=== PATIENT | female | born 1935 | race Caucasian/White ===

== ENCOUNTER 2016-02-25 14:06 | Emergency (ER) | payer MEDICARE, OTHER ==
[2016-02-25] MEDS ORDERED: GASTROGRAFIN SOLUTION 30ML (Q9963) As Ordered ONE (15:49)
[2016-02-25] MEDS ORDERED: ONDANSETRON 4MG/2ML VIAL (J2405) As Ordered ONE (16:17)
[2016-02-25] MEDS ORDERED: MORPHINE 4 MG/ML 1ML SYRINGE As Ordered ONE (16:18)
[2016-02-25 16:26] LABS: MEAN CORPUSCULAR HEMOGLOBIN 33.3 pg (27.0-33.0); MEAN CORPUSCULAR HGB CONC 33.3 g/dl (32.0-36.5); MEAN CORPUSCULAR VOLUME 99.8 fl (80.0-96.0); PLATELET COUNT, AUTOMATED 295 k/mm3 (150-450); RED CELL DISTRIBUTION WIDTH 13.4 % (11.5-14.5)
--- NOTE | 2016-02-25 16:43 | REP ---
Clinical: Chest pain. Technique: PA and lateral. Comparison: 02/05/2016. Findings: Mediastinum and cardiac silhouette are within normal limits and stable. Lung stack demonstrate diffuse chronic interstitial changes and superimposed acute left lower lobe infiltrate cannot be excluded. No effusion. No pneumothorax. Skeletal structures demonstrate osteopenia and degenerative changes. Impression: Diffuse chronic interstitial changes. Cannot exclude superimposed basilar infiltrate/atelectasis. Signed by Roni Oneal MD 02/25/2016 04:33 P
[2016-02-25 16:51] LABS: ALBUMIN 2.9 GM/DL (3.2-5.2); ALBUMIN/GLOBULIN RATIO 0.63 (1.00-1.93); ALKALINE PHOSPHATASE 74 U/L (45-117); ALT/SGPT 50 U/L (12-78); AMYLASE 37 U/L (25-115); ANION GAP 13 MEQ/L (8-16); AST/SGOT 44 U/L (15-37); BILIRUBIN,DIRECT 0.2 MG/DL (0.0-0.2); BILIRUBIN,TOTAL 0.6 MG/DL (0.2-1.0); BLOOD UREA NITROGEN 16 MG/DL (7-18); CALCIUM LEVEL 9.3 MG/DL (8.8-10.2); CARBON DIOXIDE LEVEL 25 MEQ/L (21-32); CHLORIDE LEVEL 97 MEQ/L (98-107); CREATININE FOR GFR 1.06 MG/DL (0.55-1.02); GLUCOSE, FASTING 338 MG/DL (83-110); POTASSIUM SERUM 3.8 MEQ/L (3.5-5.1); SODIUM LEVEL 135 MEQ/L (136-145); TOTAL PROTEIN 7.5 GM/DL (6.4-8.2)
[2016-02-25] MEDS ORDERED: ISOVUE-370 76% 100ML VIAL (Q9967) As Ordered ONE (17:35)
--- NOTE | 2016-02-25 18:19 | REP ---
Clinical: Midline abdominal and epigastric pain. Technique: Axial contrast enhanced images from the lung bases to the pubic symphysis using oral and 100 ml Isovue 370 intravenous contrast material with coronal and sagittal re-formations. Comparison: 09/24/2015. Findings: Lung bases demonstrate chronic appearing fibro atelectatic changes along with bronchiectasis. Visualized portions of the heart and pericardium are stable and within normal limits. Fatty infiltration to the liver is appreciated with small subcentimeter hypodensity in the right lobe which may reflect small cyst or hemangioma. No further hepatic lesions are identified. Spleen, pancreas, gallbladder, bilateral adrenal glands and kidneys are relatively normal / stable. Kidneys again demonstrate cortical atrophic changes and chronic perinephric stranding. The enteric system is without obstruction or acute inflammatory process. Sigmoid diverticula noted without acute diverticulitis. Pelvis demonstrates normal bladder and evidence for prior hysterectomy. Atherosclerotic changes to the abdominal aorta and vasculature noted without aneurysm or dissection. Skeletal structures demonstrate degenerative changes without focal osseous abnormality. Impression: Chronic stable changes detailed above. No acute intra-abdominal or pelvic pathology appreciated. Signed by Roni Oneal MD 02/25/2016 06:10 P
--- NOTE | 2016-02-25 19:30 | EDDOCDS ---
Nurse's Notes [facility] Name: Janessa Zhang Age: 80 yrs Sex: Female : 1935 Arrival Date: 02/25/2016 Time: 14:06 Bed 10 Private MD: Imelda Pope L. Diagnosis: Generalized abdominal pain Presentation: 02/24 14:09 Presenting complaint: states: Was at primary provider's office developed sudden rs3 onset abdominal pain. H/o weakness and low energy for a week. Denies of nausea/vomiting. Adult Sepsis Screening: The patient does not have new or worsening altered mentation. Patient's respiratory rate is less than 22. Systolic blood pressure is greater than 100. Patient has a qSOFA score of 0- Negative Sepsis Screen. Suicide/Homicide risk assessment- the patient denies having any suicidal and/or homicidal ideations and does not present with any other emotional, behavioral or mental health complaints. Status: Patient is not a technical services specialist or dependent. Transition of care: patient was not received from another setting of care. 14:09 Acuity: ALTAF Level 3 rs3 14:09 Method Of Arrival: Wheelchair rs3 Triage Assessment: 14:14 General: Appears in no apparent distress. Pain: Pain currently is 7 out of 10 on a pain rs3 scale. GI: Reports lower abdominal pain, upper abdominal pain. Historical: - Allergies: PENICILLINS (Anaphylaxis); SULFA (SULFONAMIDES) (Anaphylaxis); - Home Meds: 1. aspirin 81 mg Oral chew 1 tab once daily 2. bisoprolol fumarate 5 mg oral tab 1 tab twice a day 3. cranberry 4200 mg oral daily 4. Breo Ellipta 100-25 mcg/dose inhalation dsdv 1 puff once daily 5. ferrous sulfate 325 mg (65 mg iron) Oral TbEC daily 6. fexofenadine 180 mg Oral tab 1 tab once daily 7. Glucosamine 500 mg oral tab 1500 mg daily 8. Janumet 100/1000 mg oral tab 1 tab daily 9. Lasix 80 mg Oral tab 1 tab 2 times per day 10. lutein 20 mg oral cap daily 11. metformin 1,000 mg Oral tab 1 tab daily 12. multivitamin Oral tab 1 tab daily 13. potassium chloride 10 mEq Oral cpER 1 cap once daily 14. pravastatin 20 mg oral tab 1 tab once daily 15. ramipril 10 mg Oral cap 1 cap once daily 16. Singulair 10 mg Oral tab 1 tab once daily 17. Vagifem 10 mcg vaginal tab 1 tab 2 times per wk 18. Vitamin D Oral 2000 unit daily - PMHx: CHF; Diabetes - NIDDM: controlled; Hypercholesterolemia; COPD; Hypertension; - PSHx: Hysterectomy; D & C; - Social history: Smoking status: Patient states was never smoker of tobacco. No barriers to communication noted, The patient speaks fluent Czech. - Family history: Not pertinent. - : The pt / caregiver states he / she is not on anticoagulants. Home medication list is obtained from the patient. - Exposure Risk Screening:: None identified. Screenin:34 Screening information is obtained from the patient. Fall risk: At risk due to age, The kc3 following interventions are performed due to a positive Fall Risk Screen: Fall Risk is added to Special Handling on the patient Summary Screen. A Fall Risk Bracelet was applied to the patient. Side Rails are placed in the up position. A Call Rodriguez is given with instruction to call for help when getting out of bed. Fall Alert bracelet is placed on the patient. Assistance ADL's: requires no assistance with activities of daily living. Abuse/DV Screen: The patient / caregiver reports he/she is: not in a situation that causes fear, pain or injury. Nutritional screening: No deficits noted. Advance Directives: Currently, there is no health care proxy. home support is adequate. Assessment: 14:31 General: Appears in no apparent distress, comfortable, Behavior is appropriate for age, kc3 cooperative, reports pt with weak and listless at home since Thursday with worsening confusion. . Pain: Location: abdomen. Neurological: Level of Consciousness is awake, alert, confused, obeys commands, Oriented to person, place, time. Respiratory: Respiratory effort is even, unlabored, Respiratory pattern is regular, symmetrical. GI: Abdomen is obese, Bowel sounds present X 4 quads. Abd is soft X 4 quads Abd is tender to palpation in right lower quadrant and left lower quadrant Reports lower abdominal pain, Denies nausea, vomiting. Derm: Skin is pink, warm & dry. Derm: Skin is pink, warm & dry. Musculoskeletal: Circulation, motion, and sensation intact. 15:40 General: Appears in no apparent distress, comfortable, Behavior is appropriate for age, kc3 cooperative. Pain: Location: abdomen. Neurological: Level of Consciousness is awake, alert, obeys commands, Oriented to person, place, time. Respiratory: Respiratory effort is even, unlabored. Derm: Skin is pink, warm & dry. Musculoskeletal: Circulation, motion, and sensation intact. 16:30 General: Appears in no apparent distress, comfortable, Behavior is appropriate for age, kc3 cooperative. Pain: Denies pain. Neurological: No deficits noted. Respiratory: Respiratory effort is even, unlabored. GI: Denies nausea. Derm: Skin is pink, warm & dry. 17:20 General: Appears in no apparent distress, comfortable, Behavior is appropriate for age, kc3 cooperative. Pain: Denies pain. Neurological: No deficits noted. Respiratory: Respiratory effort is even, unlabored. Derm: Skin is pink, warm & dry. 18:12 General: Appears in no apparent distress, comfortable, Behavior is appropriate for age, kc3 cooperative. Pain: Denies pain. Neurological: Level of Consciousness is awake, alert, obeys commands. Respiratory: Respiratory effort is even, unlabored. Derm: Skin is pink, warm & dry. 18:22 General: Appears in no apparent distress, comfortable, Behavior is appropriate for age, kc3 cooperative. 19:00 General: Verbal report given by Yesy Kelley RN. Assumed care of patient at this time... kas2 19:15 General: Appears in no apparent distress, comfortable, well nourished, well groomed, kas2 Behavior is appropriate for age, cooperative. Pain: Denies pain. Neurological: No deficits noted. Level of Consciousness is awake, alert, Oriented to person, place, time. Respiratory: Respiratory effort is even, unlabored, Respiratory pattern is regular, symmetrical, Breath sounds are clear bilaterally. Derm: Skin is intact, is healthy with good turgor, Skin is dry, Skin is pink, warm & dry. Skin temperature is warm. Vital Signs: 14:07 BP 160 / 104; Pulse 112; Resp 20 S; Temp 97.1; Pulse Ox 97% on R/A; Weight 72.57 kg dd6 (R); Height 5 ft. 0 in. (152.40 cm) (R); 14:25 BP 123 / 69 (auto/); kc3 14:37 Pulse 102 MON; Pulse Ox 92% ; kc3 14:54 Pulse 102 MON; Pulse Ox 92% ; kc3 14:55 BP 148 / 66 (auto/); kc3 15:25 BP 160 / 70 (auto/); kc3 15:25 Pulse 102 MON; Pulse Ox 93% ; kc3 15:56 Pulse 104 MON; Pulse Ox 94% ; kc3 15:57 BP 166 / 73 (auto/); kc3 16:24 Pulse 106 MON; Pulse Ox 97% ; kc3 16:25 BP 165 / 72 (auto/); kc3 16:54 Pulse 96 MON; Pulse Ox 97% ; kc3 16:55 BP 187 / 92 (auto/); kc3 17:04 Pulse 96 MON; Pulse Ox 96% ; kc3 17:05 BP 138 / 67 (auto/); kc3 17:06 BP 138 / 67; Pain 0/10; kc3 17:24 Pulse 94 MON; Pulse Ox 95% ; kc3 17:25 BP 122 / 63 (auto/); kc3 18:09 BP 134 / 60 (auto/); kc3 18:11 Pulse 86 MON; Resp 18; Pulse Ox 98% 2 lpm ; Pain 0/10; kc3 19:24 BP 132 / 63 RA Supine (auto/reg); Pulse 84 MON; Resp 20 S; Temp 98.9(O); Pulse Ox 97% cln on R/A; Pain 0/10; 14:07 Body Mass Index 31.25 (72.57 kg, 152.40 cm) dd6 Vitals: 14:07 Log In Time: February 25, 2016 at 14:05. dd6 ED Course: 14:07 Patient visited by Efrain Allen PCA. dd6 14:07 Imelda Pope is Private Physician. dd6 14:07 Patient moved to Waiting dd6 14:08 Patient moved to Pre RCE dd6 14:11 Triage Initiated rs3 14:15 Yesy Kelley,ALISE is Primary Nurse. rs3 14:15 Patient moved to 10 rs3 14:18 [facility] jo4 14:18 Eyal Celis MD is Attending Physician. jo4 14:34 The patient / caregiver is instructed regarding the plan of care and ED course. kc3 14:36 Patient visited by Yesy Kelley RN. kc3 15:27 Patient visited by Eyal Celis MD. br1 15:35 EKG done. (by ED staff). Reviewed by Eyal Celis MD. ct3 15:40 Patient visited by Vanessa Monzon PCA. ct3 15:50 [facility] Payment Agreement was scanned into [employer] and attached to record. zo 16:00 Patient visited by Angelica Licea RN. ms18 16:00 Lipase Sent. ms18 16:00 Amylase Sent. ms18 16:00 Liver Profile Sent. ms18 16:00 BMP Sent. ms18 16:00 CBC with Diff Sent. ms18 16:00 Inserted saline lock: 20 gauge in left antecubital area and blood collected. The ms18 patient tolerated the procedure well. 17:06 Patient visited by Yesy Kelley RN. kc3 17:10 Chest, 2 View (pa\E\lat) Returned. EDMS 17:32 DIFFERENTIAL NO CHARGE Sent. kc3 18:08 Patient visited by Yesy Kelley RN. kc3 18:11 Patient visited by Yesy Kelley RN. kc3 18:52 CT ABD & PELVIS: IV and Oral Contrast Returned. EDMS 18:56 Jessica Licea RN is Primary Nurse. kas2 19:00 Patient visited by Jessica Licea RN. kas2 19:02 Imelda Pope is Referral Physician. jo4 19:25 Patient visited by Priscilla Burns PCA. cln 19:28 Discontinued IV bleeding controlled, pressure dressing applied, No redness/swelling at [facility] site. No procedures done that require assistance. 19:29 Patient visited by Jessica Licea RN. [facility] Administered Medications: 15:30 Drug: Albuterol 2.5 mg [albuterol sulfate 2.5 mg/0.5 mL solution for nebulization (0.5 rs5 mL)] Route: Nebulizer; 15:55 Drug: Diatrizoate Meglumine & Sodium 10 ml [diatrizoate meglumine and diat.sodium 66 kc3 %-10 % oral solution (10 mL)] {Note: first oral contrast dose. .} Route: PO; 16:25 Drug: morphine 4 mg [morphine 4 mg/mL intravenous cartridge (1 mL)] Route: IVP; Site: jjr left antecubital; 17:06 Follow up: BP 138 / 67; Pain 0/10 Adult kc3 16:25 Drug: Ondansetron 4 mg [ondansetron HCl 2 mg/mL intravenous solution (2 mL)] Route: jjr IVP; Site: left antecubital; 17:06 Follow up: Response: No Adverse Reaction kc3 16:25 Drug: Diatrizoate Meglumine & Sodium 10 ml [diatrizoate meglumine and diat.sodium 66 kc3 %-10 % oral solution (10 mL)] Route: PO; RT: 15:38 Initial Med Neb Given as ordered Patient was instructed and evaluated on procedure rs5 Patient tolerated procedure well without adverse effect. Respiratory: Airway is patent Respiratory effort is even, unlabored, Respiratory pattern is regular symmetrical, Order Results: Lab Order: CBC with Diff; SPEC'M 02/25/16 15:58 Test: WHITE BLOOD COUNT; Value: 12.0; Range: 4.0-10.0; Abnormal: Above high normal; Units: K/mm3; Status: F Test: RED BLOOD COUNT; Value: 3.61; Range: 4.00-5.40; Abnormal: Below low normal; Units: M/mm3; Status: F Test: HEMOGLOBIN; Value: 12.0; Range: 12.0-16.0; Units: g/dl; Status: F Test: HEMATOCRIT; Value: 36.1; Range: 36.0-47.0; Units: %; Status: F Test: MEAN CORPUSCULAR VOLUME; Value: 99.8; Range: 80.0-96.0; Abnormal: Above high normal; Units: fl; Status: F Test: MEAN CORPUSCULAR HEMOGLOBIN; Value: 33.3; Range: 27.0-33.0; Abnormal: Above high normal; Units: pg; Status: F Test: MEAN CORPUSCULAR HGB CONC; Value: 33.3; Range: 32.0-36.5; Units: g/dl; Status: F Test: RED CELL DISTRIBUTION WIDTH; Value: 13.4; Range: 11.5-14.5; Units: %; Status: F Test: PLATELET COUNT, AUTOMATED; Value: 295; Range: 150-450; Units: k/mm3; Status: F Test: NEUTROPHILS; Value: 79; Range: 35-75; Abnormal: Above high normal; Units: %; Status: F Test: LYMPHOCYTES; Value: 8; Range: 16-52; Abnormal: Below low normal; Units: %; Status: F Test: MONOCYTES; Value: 10; Range: 0-8; Abnormal: Above high normal; Units: %; Status: F Test: ATYPICAL LYMPH; Value: 3; Range: 0-5; Units: %; Status: F Test: RBC MORPHOLOGY; Value: NORMAL; Status: F Lab Order: BMP; SPEC'M 02/25/16 15:58 Test: GLUCOSE, FASTING; Value: 338; Range: 83-110; Abnormal: Above high normal; Units: MG/DL; Status: F Test: BLOOD UREA NITROGEN; Value: 16; Range: 7-18; Units: MG/DL; Status: F Test: CREATININE FOR GFR; Value: 1.06; Range: 0.55-1.02; Abnormal: Above high normal; Units: MG/DL; Status: F Test: GLOMERULAR FILTRATION RATE; Value: 53.0; Range: >32; Status: F Test: SODIUM LEVEL; Value: 135; Range: 136-145; Abnormal: Below low normal; Units: MEQ/L; Status: F Test: POTASSIUM SERUM; Value: 3.8; Range: 3.5-5.1; Units: MEQ/L; Status: F Test: CHLORIDE LEVEL; Value: 97; Range: 98-107; Abnormal: Below low normal; Units: MEQ/L; Status: F Test: CARBON DIOXIDE LEVEL; Value: 25; Range: 21-32; Units: MEQ/L; Status: F Test: ANION GAP; Value: 13; Range: 8-16; Units: MEQ/L; Status: F Test: CALCIUM LEVEL; Value: 9.3; Range: 8.8-10.2; Units: MG/DL; Status: F Test Note: ; Units are mL/min/1.73 m2 Chronic Kidney Disease Staging per NKF: Stage I & II GFR >=60 Normal to Mildly Decreased Stage III GFR 30-59 Moderately Decreased Stage IV GFR 15-29 Severely Decreased Stage V GFR <15 Very Little GFR Left ESRD GFR <15 on [employer] SCOUT Lab Order: Liver Profile; SPEC'M 02/25/16 15:58 Test: AST/SGOT; Value: 44; Range: 15-37; Abnormal: Above high normal; Units: U/L; Status: F Test: ALT/SGPT; Value: 50; Range: 12-78; Units: U/L; Status: F Test: ALKALINE PHOSPHATASE; Value: 74; Range: 45-117; Units: U/L; Status: F Test: BILIRUBIN,TOTAL; Value: 0.6; Range: 0.2-1.0; Units: MG/DL; Status: F Test: BILIRUBIN,DIRECT; Value: 0.2; Range: 0.0-0.2; Units: MG/DL; Status: F Test: TOTAL PROTEIN; Value: 7.5; Range: 6.4-8.2; Units: GM/DL; Status: F Test: ALBUMIN; Value: 2.9; Range: 3.2-5.2; Abnormal: Below low normal; Units: GM/DL; Status: F Test: ALBUMIN/GLOBULIN RATIO; Value: 0.63; Range: 1.00-1.93; Abnormal: Below low normal; Status: F Lab Order: Amylase; SPEC'M 02/25/16 15:58 Test: AMYLASE; Value: 37; Range: 25-115; Units: U/L; Status: F Lab Order: Lipase; SPEC'M 02/25/16 15:58 Test: LIPASE; Value: 132; Range: 73-393; Units: U/L; Status: F Lab Order: TROPONIN; SPEC'M 02/25/16 15:58 Test: TROPONIN I; Value: < 0.02; Range: < 0.10; Units: NG/ML; Status: F Test Note: ; Troponin I Reference Interval for Adormo LOCI: 99th Percentile= 0.00-0.045 ng/ml Risk Stratification: <= 0.10 ng/ml Decreased Risk for Adverse Clinical Events. 0.10-1.50 ng/ml Increased Risk for Adverse Clinical Events. Evaluation of additional criterion and/or repeat testing in 2-6 hours is suggested to rule out myocardial damage. >= 1.50 ng/ml Indicative of Myocardial Injury. Lab Order: PLATELET ESTIMATE; SPEC'M 02/25/16 15:58 Test: PLATELET ESTIMATE; Value: NORMAL; Range: NORMAL; Status: F Radiology Order: Chest, 2 View (pa\E\lat) Test: Chest, 2 View (pa\E\lat) REASON FOR EXAMINATION: Chest Pain; Clinical: Chest pain.; ; Technique: PA and lateral.; ; Comparison: 02/05/2016.; ; Findings:; Mediastinum and cardiac silhouette are within normal limits and stable. Lung; stack demonstrate diffuse chronic interstitial changes and superimposed acute; left lower lobe infiltrate cannot be excluded. No effusion. No pneumothorax.; Skeletal structures demonstrate osteopenia and degenerative changes.; ; Impression:; Diffuse chronic interstitial changes.; Cannot exclude superimposed basilar infiltrate/atelectasis.; ; ; Signed by; Roni Oneal MD 02/25/2016 04:33 P; Radiology Order: CT ABD & PELVIS: IV and Oral Contrast Test: CT ABD & PELVIS: IV and Oral Contrast REASON FOR EXAMINATION: Midline/epigastric abdominal pain; Clinical: Midline abdominal and epigastric pain.; ; Technique: Axial contrast enhanced images from the lung bases to the pubic; symphysis using oral and 100 ml Isovue 370 intravenous contrast material with; coronal and sagittal re-formations.; ; Comparison: 09/24/2015.; ; Findings:; Lung bases demonstrate chronic appearing fibro atelectatic changes along with; bronchiectasis. Visualized portions of the heart and pericardium are stable and; within normal limits.; ; Fatty infiltration to the liver is appreciated with small subcentimeter; hypodensity in the right lobe which may reflect small cyst or hemangioma. No; further hepatic lesions are identified. Spleen, pancreas, gallbladder, bilateral; adrenal glands and kidneys are relatively normal / stable. Kidneys again; demonstrate cortical atrophic changes and chronic perinephric stranding. The; enteric system is without obstruction or acute inflammatory process. Sigmoid; diverticula noted without acute diverticulitis. Pelvis demonstrates normal; bladder and evidence for prior hysterectomy. Atherosclerotic changes to the; abdominal aorta and vasculature noted without aneurysm or dissection. Skeletal; structures demonstrate degenerative changes without focal osseous abnormality.; ; Impression:; Chronic stable changes detailed above.; No acute intra-abdominal or pelvic pathology appreciated.; ; ; Signed by; Roni Oneal MD 02/25/2016 06:10 P; Outcome: 18:30 CT Study completed. kc3 19:03 Discharge ordered by Provider. jo4 19:28 Discharge Assessment: patient administered narcotics - no. The following High Risk [facility] Discharge criteria are identified: None. Discharged to home via wheelchair, with significant other. Condition: good Condition: stable Condition: improved. Property :Personal belongings accompany Pt. 19:29 Patient left the ED. kas2 Signatures: Dispatcher [employer] EDMS Jamilah Kc Brian, MD MD br1 Tracy Zamudio, RN RN Efrani Nuñez, RESIDENTIAL PLUMBER RESIDENTIAL PLUMBER dd6 Ally Chavez,RN RN rs3 Vanessa Monzon, RESIDENTIAL PLUMBER RESIDENTIAL PLUMBER ct3 Saravanan Alfaro,RT RT rs5 Angelica Licea,RN RN ms18 Yesy Kelley,RN RN kc3 Marilin Carbone, DO DO jo4 Jessica LiceaRN RN kas2 Priscilla Burns, RESIDENTIAL PLUMBER RESIDENTIAL PLUMBER cln Corrections: (The following items were deleted from the chart) 14:39 14:31 General: Appears in no apparent distress, comfortable, Behavior is appropriate kc3 for age, cooperative, kc3 16:28 16:26 TROPONIN+LAB sent. kc3 EDNJ MTDD
--- NOTE | 2016-02-25 19:30 | EDDOCDS ---
Physician Documentation [facility] Name: Janessa Zhang Age: 80 yrs Sex: Female : 1935 Arrival Date: 02/25/2016 Time: 14:06 Bed 10 Private MD: Imelda Pope L. Disposition: 02/24 19:04 I have independently interviewed and examined the patient, and I agree with the br1 investigation, diagnosis and treatment plan as documented by the Resident. Disposition: 02/25/16 19:03 Discharged to Home/Self Care. Impression: Generalized abdominal pain. - Condition is Stable. - Discharge Instructions: Abdominal Pain, Adult. - Medication Reconciliation, Local Pharmacy Hours form. - Follow up: Imelda Pope; When: 1 week; Reason: Recheck today's complaints. - Problem is new. - Symptoms have improved. - Notes: You were in the emergency department for abdominal pain. Your laboratory results and CT of the abdomen and pelvis reported no abnormalities. Your abdominal pain improved with appropriate pain medication administered in the ED. Please follow-up with Imelda Pope in 1 week. Historical: - Allergies: PENICILLINS (Anaphylaxis); SULFA (SULFONAMIDES) (Anaphylaxis); - Home Meds: 1. aspirin 81 mg Oral chew 1 tab once daily 2. bisoprolol fumarate 5 mg oral tab 1 tab twice a day 3. cranberry 4200 mg oral daily 4. Breo Ellipta 100-25 mcg/dose inhalation dsdv 1 puff once daily 5. ferrous sulfate 325 mg (65 mg iron) Oral TbEC daily 6. fexofenadine 180 mg Oral tab 1 tab once daily 7. Glucosamine 500 mg oral tab 1500 mg daily 8. Janumet 100/1000 mg oral tab 1 tab daily 9. Lasix 80 mg Oral tab 1 tab 2 times per day 10. lutein 20 mg oral cap daily 11. metformin 1,000 mg Oral tab 1 tab daily 12. multivitamin Oral tab 1 tab daily 13. potassium chloride 10 mEq Oral cpER 1 cap once daily 14. pravastatin 20 mg oral tab 1 tab once daily 15. ramipril 10 mg Oral cap 1 cap once daily 16. Singulair 10 mg Oral tab 1 tab once daily 17. Vagifem 10 mcg vaginal tab 1 tab 2 times per wk 18. Vitamin D Oral 2000 unit daily - PMHx: CHF; Diabetes - NIDDM: controlled; Hypercholesterolemia; COPD; Hypertension; - PSHx: Hysterectomy; D & C; - Social history: Smoking status: Patient states was never smoker of tobacco. No barriers to communication noted, The patient speaks fluent Telugu. - Family history: Not pertinent. - : The pt / caregiver states he / she is not on anticoagulants. Home medication list is obtained from the patient. - Exposure Risk Screening:: None identified. Vital Signs: 14:07 BP 160 / 104; Pulse 112; Resp 20 S; Temp 97.1; Pulse Ox 97% on R/A; Weight 72.57 kg / dd6 159.99 lbs (R); Height 5 ft. 0 in. (152.40 cm) (R); 14:25 BP 123 / 69 (auto/); kc3 14:37 Pulse 102 MON; Pulse Ox 92% ; kc3 14:54 Pulse 102 MON; Pulse Ox 92% ; kc3 14:55 BP 148 / 66 (auto/); kc3 15:25 BP 160 / 70 (auto/); kc3 15:25 Pulse 102 MON; Pulse Ox 93% ; kc3 15:56 Pulse 104 MON; Pulse Ox 94% ; kc3 15:57 BP 166 / 73 (auto/); kc3 16:24 Pulse 106 MON; Pulse Ox 97% ; kc3 16:25 BP 165 / 72 (auto/); kc3 16:54 Pulse 96 MON; Pulse Ox 97% ; kc3 16:55 BP 187 / 92 (auto/); kc3 17:04 Pulse 96 MON; Pulse Ox 96% ; kc3 17:05 BP 138 / 67 (auto/); kc3 17:06 BP 138 / 67; Pain 0/10; kc3 17:24 Pulse 94 MON; Pulse Ox 95% ; kc3 17:25 BP 122 / 63 (auto/); kc3 18:09 BP 134 / 60 (auto/); kc3 18:11 Pulse 86 MON; Resp 18; Pulse Ox 98% 2 lpm ; Pain 0/10; kc3 19:24 BP 132 / 63 RA Supine (auto/reg); Pulse 84 MON; Resp 20 S; Temp 98.9(O); Pulse Ox 97% cln on R/A; Pain 0/10; 14:07 Body Mass Index 31.25 (72.57 kg, 152.40 cm) dd6 MDM: 15:25 Oxygen at 2L/min via NC ordered. jo4 15:25 Albuterol 2.5 mg Nebulizer once ordered. jo4 15:25 Call Respiratory ordered. jo4 15:26 CBC with Diff Ordered. EDMS 15:26 BMP Ordered. EDMS 15:26 Liver Profile Ordered. EDMS 15:26 Amylase Ordered. EDMS 15:26 Lipase Ordered. EDMS 15:26 ECG WITH READING ER PHYS+CARDIAG ordered. EDMS 15:27 Call Respiratory complete. deg 15:28 Chest, 2 View (pa\E\lat) Ordered. EDMS 15:30 CT ABD & PELVIS: IV and Oral Contrast Ordered. EDMS 15:49 Financial registration complete. zo 15:50 [facility] Payment Agreement was scanned into [employer] and attached to record. zo 16:05 morphine 4 mg IVP once ordered. jo4 16:05 Ondansetron 4 mg IVP once ordered. jo4 16:20 Diatrizoate Meglumine & Sodium Liquid 10 ml PO once; mix in 290cc of water - give at kc3 1625 ordered. 16:20 Diatrizoate Meglumine & Sodium Liquid 10 ml PO once; mix in 290cc of water - give at kc3 1625 ordered. 16:28 TROPONIN Ordered. EDMS 16:29 DIFFERENTIAL NO CHARGE Ordered. EDMS 17:00 TROPONIN Reviewed. jo4 17:00 CBC with Diff Reviewed. jo4 17:01 BMP Reviewed. jo4 17:01 Liver Profile Reviewed. jo4 17:03 Lipase Reviewed. jo4 17:04 Amylase Reviewed. jo4 17:28 Chest, 2 View (pa\E\lat) Reviewed. jo4 17:41 CBC with Diff Reviewed. jo4 18:53 CT ABD & PELVIS: IV and Oral Contrast Reviewed. jo4 18:55 PLATELET ESTIMATE Reviewed. br1 Administered Medications: 15:30 Drug: Albuterol 2.5 mg [albuterol sulfate 2.5 mg/0.5 mL solution for nebulization (0.5 rs5 mL)] Route: Nebulizer; 15:55 Drug: Diatrizoate Meglumine & Sodium 10 ml [diatrizoate meglumine and diat.sodium 66 kc3 %-10 % oral solution (10 mL)] {Note: first oral contrast dose. .} Route: PO; 16:25 Drug: morphine 4 mg [morphine 4 mg/mL intravenous cartridge (1 mL)] Route: IVP; Site: jjr left antecubital; 17:06 Follow up: BP 138 / 67; Pain 0/10 Adult kc3 16:25 Drug: Ondansetron 4 mg [ondansetron HCl 2 mg/mL intravenous solution (2 mL)] Route: jjr IVP; Site: left antecubital; 17:06 Follow up: Response: No Adverse Reaction kc3 16:25 Drug: Diatrizoate Meglumine & Sodium 10 ml [diatrizoate meglumine and diat.sodium 66 kc3 %-10 % oral solution (10 mL)] Route: PO; Signatures: Dispatcher MedHost EDMS Agatha Causey, [employer] Architect Unit deg Jamilah Kc Brian, MD MD br1 Ally Chavez RN RN rs3 Yesy Kelley RN RN kc3 Marilin Carbone DO DO jo4 Jessica Licea RN RN kas2 Tracy Zamudio RN, Richard RT rs5 The chart was reviewed and I authenticate all verbal orders and agree with the evaluation and treatment provided.Corrections: (The following items were deleted from the chart) 16:28 16:25 TROPONIN+LAB ordered. EDAZ EDMS Attachments: 15:50 [facility] Payment Agreement zo MTDD
--- NOTE | 2016-02-26 19:49 | ECGEPIP ---
Stationary ECG Study [facility] - ED Test Date: 2016-02-25 Pat Name: CHRISTO FAULKNER Department: Room: - Gender: F Lpn Medical Assistant: ct : 1935 Requested By: CRISTINA CASTRO Order Number: [id number] Reading MD: Mana Lyon Measurements Intervals [place] Rate: 98 P: 18 ND: 199 QRS: 17 QRSD: 63 T: 37 QT: 314 QTc: 403 Interpretive Statements SINUS RHYTHM POSSIBLE LEFT ATRIAL ENLARGEMENT NONSPECIFIC ST & T-WAVE ABNORMALITY INCREASED RATE 09/24/15 Electronically Signed On 02-26-2016 19:49:29 EST by Mana Lyon
--- NOTE | 2016-02-27 20:30 | EDDOCDS ---
Physician Documentation [facility] Name: Janessa Zhang Age: 80 yrs Sex: Female : 1935 Arrival Date: 02/25/2016 Time: 14:06 Bed 10 Private MD: Imelda Pope L. Disposition: 02/24 19:04 I have independently interviewed and examined the patient, and I agree with the br1 investigation, diagnosis and treatment plan as documented by the Resident. Disposition: 02/25/16 19:03 Discharged to Home/Self Care. Impression: Generalized abdominal pain. - Condition is Stable. - Discharge Instructions: Abdominal Pain, Adult. - Medication Reconciliation, Local Pharmacy Hours form. - Follow up: Imelda Pope; When: 1 week; Reason: Recheck today's complaints. - Problem is new. - Symptoms have improved. - Notes: You were in the emergency department for abdominal pain. Your laboratory results and CT of the abdomen and pelvis reported no abnormalities. Your abdominal pain improved with appropriate pain medication administered in the ED. Please follow-up with Imelda Pope in 1 week. Historical: - Allergies: PENICILLINS (Anaphylaxis); SULFA (SULFONAMIDES) (Anaphylaxis); - Home Meds: 1. aspirin 81 mg Oral chew 1 tab once daily 2. bisoprolol fumarate 5 mg oral tab 1 tab twice a day 3. cranberry 4200 mg oral daily 4. Breo Ellipta 100-25 mcg/dose inhalation dsdv 1 puff once daily 5. ferrous sulfate 325 mg (65 mg iron) Oral TbEC daily 6. fexofenadine 180 mg Oral tab 1 tab once daily 7. Glucosamine 500 mg oral tab 1500 mg daily 8. Janumet 100/1000 mg oral tab 1 tab daily 9. Lasix 80 mg Oral tab 1 tab 2 times per day 10. lutein 20 mg oral cap daily 11. metformin 1,000 mg Oral tab 1 tab daily 12. multivitamin Oral tab 1 tab daily 13. potassium chloride 10 mEq Oral cpER 1 cap once daily 14. pravastatin 20 mg oral tab 1 tab once daily 15. ramipril 10 mg Oral cap 1 cap once daily 16. Singulair 10 mg Oral tab 1 tab once daily 17. Vagifem 10 mcg vaginal tab 1 tab 2 times per wk 18. Vitamin D Oral 2000 unit daily - PMHx: CHF; Diabetes - NIDDM: controlled; Hypercholesterolemia; COPD; Hypertension; - PSHx: Hysterectomy; D & C; - Social history: Smoking status: Patient states was never smoker of tobacco. No barriers to communication noted, The patient speaks fluent Nepali. - Family history: Not pertinent. - : The pt / caregiver states he / she is not on anticoagulants. Home medication list is obtained from the patient. - Exposure Risk Screening:: None identified. Vital Signs: 14:07 BP 160 / 104; Pulse 112; Resp 20 S; Temp 97.1; Pulse Ox 97% on R/A; Weight 72.57 kg / dd6 159.99 lbs (R); Height 5 ft. 0 in. (152.40 cm) (R); 14:25 BP 123 / 69 (auto/); kc3 14:37 Pulse 102 MON; Pulse Ox 92% ; kc3 14:54 Pulse 102 MON; Pulse Ox 92% ; kc3 14:55 BP 148 / 66 (auto/); kc3 15:25 BP 160 / 70 (auto/); kc3 15:25 Pulse 102 MON; Pulse Ox 93% ; kc3 15:56 Pulse 104 MON; Pulse Ox 94% ; kc3 15:57 BP 166 / 73 (auto/); kc3 16:24 Pulse 106 MON; Pulse Ox 97% ; kc3 16:25 BP 165 / 72 (auto/); kc3 16:54 Pulse 96 MON; Pulse Ox 97% ; kc3 16:55 BP 187 / 92 (auto/); kc3 17:04 Pulse 96 MON; Pulse Ox 96% ; kc3 17:05 BP 138 / 67 (auto/); kc3 17:06 BP 138 / 67; Pain 0/10; kc3 17:24 Pulse 94 MON; Pulse Ox 95% ; kc3 17:25 BP 122 / 63 (auto/); kc3 18:09 BP 134 / 60 (auto/); kc3 18:11 Pulse 86 MON; Resp 18; Pulse Ox 98% 2 lpm ; Pain 0/10; kc3 19:24 BP 132 / 63 RA Supine (auto/reg); Pulse 84 MON; Resp 20 S; Temp 98.9(O); Pulse Ox 97% cln on R/A; Pain 0/10; 14:07 Body Mass Index 31.25 (72.57 kg, 152.40 cm) dd6 MDM: 15:25 Oxygen at 2L/min via NC ordered. jo4 15:25 Albuterol 2.5 mg Nebulizer once ordered. jo4 15:25 Call Respiratory ordered. jo4 15:26 CBC with Diff Ordered. EDMS 15:26 BMP Ordered. EDMS 15:26 Liver Profile Ordered. EDMS 15:26 Amylase Ordered. EDMS 15:26 Lipase Ordered. EDMS 15:26 ECG WITH READING ER PHYS+CARDIAG ordered. EDMS 15:27 Call Respiratory complete. deg 15:28 Chest, 2 View (pa\E\lat) Ordered. EDMS 15:30 CT ABD & PELVIS: IV and Oral Contrast Ordered. EDMS 15:49 Financial registration complete. zo 15:50 [facility] Payment Agreement was scanned into [employer] and attached to record. zo 16:05 morphine 4 mg IVP once ordered. jo4 16:05 Ondansetron 4 mg IVP once ordered. jo4 16:20 Diatrizoate Meglumine & Sodium Liquid 10 ml PO once; mix in 290cc of water - give at kc3 1625 ordered. 16:20 Diatrizoate Meglumine & Sodium Liquid 10 ml PO once; mix in 290cc of water - give at kc3 1625 ordered. 16:28 TROPONIN Ordered. EDMS 16:29 DIFFERENTIAL NO CHARGE Ordered. EDMS 17:00 TROPONIN Reviewed. jo4 17:00 CBC with Diff Reviewed. jo4 17:01 BMP Reviewed. jo4 17:01 Liver Profile Reviewed. jo4 17:03 Lipase Reviewed. jo4 17:04 Amylase Reviewed. jo4 17:28 Chest, 2 View (pa\E\lat) Reviewed. jo4 17:41 CBC with Diff Reviewed. jo4 18:53 CT ABD & PELVIS: IV and Oral Contrast Reviewed. jo4 18:55 PLATELET ESTIMATE Reviewed. br1 02/25 11:12 T-Sheet-- Draft Copy was scanned into [employer] and attached to record. gb 11:13 ECG/EKG was scanned into [employer] and attached to record. gb Administered Medications: 02/24 15:30 Drug: Albuterol 2.5 mg [albuterol sulfate 2.5 mg/0.5 mL solution for nebulization (0.5 rs5 mL)] Route: Nebulizer; 15:55 Drug: Diatrizoate Meglumine & Sodium 10 ml [diatrizoate meglumine and diat.sodium 66 kc3 %-10 % oral solution (10 mL)] {Note: first oral contrast dose. .} Route: PO; 16:25 Drug: morphine 4 mg [morphine 4 mg/mL intravenous cartridge (1 mL)] Route: IVP; Site: jjr left antecubital; 17:06 Follow up: BP 138 / 67; Pain 0/10 Adult kc3 16:25 Drug: Ondansetron 4 mg [ondansetron HCl 2 mg/mL intravenous solution (2 mL)] Route: jjr IVP; Site: left antecubital; 17:06 Follow up: Response: No Adverse Reaction kc3 16:25 Drug: Diatrizoate Meglumine & Sodium 10 ml [diatrizoate meglumine and diat.sodium 66 kc3 %-10 % oral solution (10 mL)] Route: PO; Signatures: Dispatcher MedHost EDMS Agatha Causey, Professional Golf Tournament Player Unit deg Marisol Manzo, Reg Reg gb Jamilah Kc Brian, MD MD br1 Ally Chavez,RN RN rs3 Yesy Kelley,RN RN kc3 Marilin Carbone DO DO jo4 Jessica Licea RN RN senia2 Tracy Zamudio RNjSaravanan Mccord RT rs5 The chart was reviewed and I authenticate all verbal orders and agree with the evaluation and treatment provided.Corrections: (The following items were deleted from the chart) 16:28 16:25 TROPONIN+LAB ordered. EDMS EDMS Attachments: 15:50 [facility] Payment Agreement zo 02/25 11:12 T-Sheet-- Draft Copy gb 11:13 ECG/EKG gb Chart Complete MTDD
--- NOTE | 2016-02-27 20:30 | EDDOCDS ---
Physician Documentation [facility] Name: Janessa Zhang Age: 80 yrs Sex: Female : 1935 Arrival Date: 02/25/2016 Time: 14:06 Bed 10 Private MD: Imelda Ppoe L. Disposition: 02/24 19:04 I have independently interviewed and examined the patient, and I agree with the br1 investigation, diagnosis and treatment plan as documented by the Resident. Disposition: 02/25/16 19:03 Discharged to Home/Self Care. Impression: Generalized abdominal pain. - Condition is Stable. - Discharge Instructions: Abdominal Pain, Adult. - Medication Reconciliation, Local Pharmacy Hours form. - Follow up: Imelda Pope; When: 1 week; Reason: Recheck today's complaints. - Problem is new. - Symptoms have improved. - Notes: You were in the emergency department for abdominal pain. Your laboratory results and CT of the abdomen and pelvis reported no abnormalities. Your abdominal pain improved with appropriate pain medication administered in the ED. Please follow-up with Imelda Pope in 1 week. Historical: - Allergies: PENICILLINS (Anaphylaxis); SULFA (SULFONAMIDES) (Anaphylaxis); - Home Meds: 1. aspirin 81 mg Oral chew 1 tab once daily 2. bisoprolol fumarate 5 mg oral tab 1 tab twice a day 3. cranberry 4200 mg oral daily 4. Breo Ellipta 100-25 mcg/dose inhalation dsdv 1 puff once daily 5. ferrous sulfate 325 mg (65 mg iron) Oral TbEC daily 6. fexofenadine 180 mg Oral tab 1 tab once daily 7. Glucosamine 500 mg oral tab 1500 mg daily 8. Janumet 100/1000 mg oral tab 1 tab daily 9. Lasix 80 mg Oral tab 1 tab 2 times per day 10. lutein 20 mg oral cap daily 11. metformin 1,000 mg Oral tab 1 tab daily 12. multivitamin Oral tab 1 tab daily 13. potassium chloride 10 mEq Oral cpER 1 cap once daily 14. pravastatin 20 mg oral tab 1 tab once daily 15. ramipril 10 mg Oral cap 1 cap once daily 16. Singulair 10 mg Oral tab 1 tab once daily 17. Vagifem 10 mcg vaginal tab 1 tab 2 times per wk 18. Vitamin D Oral 2000 unit daily - PMHx: CHF; Diabetes - NIDDM: controlled; Hypercholesterolemia; COPD; Hypertension; - PSHx: Hysterectomy; D & C; - Social history: Smoking status: Patient states was never smoker of tobacco. No barriers to communication noted, The patient speaks fluent Wolof. - Family history: Not pertinent. - : The pt / caregiver states he / she is not on anticoagulants. Home medication list is obtained from the patient. - Exposure Risk Screening:: None identified. Vital Signs: 14:07 BP 160 / 104; Pulse 112; Resp 20 S; Temp 97.1; Pulse Ox 97% on R/A; Weight 72.57 kg / dd6 159.99 lbs (R); Height 5 ft. 0 in. (152.40 cm) (R); 14:25 BP 123 / 69 (auto/); kc3 14:37 Pulse 102 MON; Pulse Ox 92% ; kc3 14:54 Pulse 102 MON; Pulse Ox 92% ; kc3 14:55 BP 148 / 66 (auto/); kc3 15:25 BP 160 / 70 (auto/); kc3 15:25 Pulse 102 MON; Pulse Ox 93% ; kc3 15:56 Pulse 104 MON; Pulse Ox 94% ; kc3 15:57 BP 166 / 73 (auto/); kc3 16:24 Pulse 106 MON; Pulse Ox 97% ; kc3 16:25 BP 165 / 72 (auto/); kc3 16:54 Pulse 96 MON; Pulse Ox 97% ; kc3 16:55 BP 187 / 92 (auto/); kc3 17:04 Pulse 96 MON; Pulse Ox 96% ; kc3 17:05 BP 138 / 67 (auto/); kc3 17:06 BP 138 / 67; Pain 0/10; kc3 17:24 Pulse 94 MON; Pulse Ox 95% ; kc3 17:25 BP 122 / 63 (auto/); kc3 18:09 BP 134 / 60 (auto/); kc3 18:11 Pulse 86 MON; Resp 18; Pulse Ox 98% 2 lpm ; Pain 0/10; kc3 19:24 BP 132 / 63 RA Supine (auto/reg); Pulse 84 MON; Resp 20 S; Temp 98.9(O); Pulse Ox 97% cln on R/A; Pain 0/10; 14:07 Body Mass Index 31.25 (72.57 kg, 152.40 cm) dd6 MDM: 15:25 Oxygen at 2L/min via NC ordered. jo4 15:25 Albuterol 2.5 mg Nebulizer once ordered. jo4 15:25 Call Respiratory ordered. jo4 15:26 CBC with Diff Ordered. EDMS 15:26 BMP Ordered. EDMS 15:26 Liver Profile Ordered. EDMS 15:26 Amylase Ordered. EDMS 15:26 Lipase Ordered. EDMS 15:26 ECG WITH READING ER PHYS+CARDIAG ordered. EDMS 15:27 Call Respiratory complete. deg 15:28 Chest, 2 View (pa\E\lat) Ordered. EDMS 15:30 CT ABD & PELVIS: IV and Oral Contrast Ordered. EDMS 15:49 Financial registration complete. zo 15:50 [facility] [place] Agreement was scanned into [employer] and attached to record. zo 16:05 morphine 4 mg IVP once ordered. jo4 16:05 Ondansetron 4 mg IVP once ordered. jo4 16:20 Diatrizoate Meglumine & Sodium Liquid 10 ml PO once; mix in 290cc of water - give at kc3 1625 ordered. 16:20 Diatrizoate Meglumine & Sodium Liquid 10 ml PO once; mix in 290cc of water - give at kc3 1625 ordered. 16:28 TROPONIN Ordered. EDMS 16:29 DIFFERENTIAL NO CHARGE Ordered. EDMS 17:00 TROPONIN Reviewed. jo4 17:00 CBC with Diff Reviewed. jo4 17:01 BMP Reviewed. jo4 17:01 Liver Profile Reviewed. jo4 17:03 Lipase Reviewed. jo4 17:04 Amylase Reviewed. jo4 17:28 Chest, 2 View (pa\E\lat) Reviewed. jo4 17:41 CBC with Diff Reviewed. jo4 18:53 CT ABD & PELVIS: IV and Oral Contrast Reviewed. jo4 18:55 PLATELET ESTIMATE Reviewed. br1 02/25 11:12 T-Sheet-- Draft Copy was scanned into [employer] and attached to record. gb 11:13 ECG/EKG was scanned into [employer] and attached to record. gb Administered Medications: 02/24 15:30 Drug: Albuterol 2.5 mg [albuterol sulfate 2.5 mg/0.5 mL solution for nebulization (0.5 rs5 mL)] Route: Nebulizer; 15:55 Drug: Diatrizoate Meglumine & Sodium 10 ml [diatrizoate meglumine and diat.sodium 66 kc3 %-10 % oral solution (10 mL)] {Note: first oral contrast dose. .} Route: PO; 16:25 Drug: morphine 4 mg [morphine 4 mg/mL intravenous cartridge (1 mL)] Route: IVP; Site: jjr left antecubital; 17:06 Follow up: BP 138 / 67; Pain 0/10 Adult kc3 16:25 Drug: Ondansetron 4 mg [ondansetron HCl 2 mg/mL intravenous solution (2 mL)] Route: jjr IVP; Site: left antecubital; 17:06 Follow up: Response: No Adverse Reaction kc3 16:25 Drug: Diatrizoate Meglumine & Sodium 10 ml [diatrizoate meglumine and diat.sodium 66 kc3 %-10 % oral solution (10 mL)] Route: PO; Signatures: Dispatcher MedHost EDMS Agatha Causey, [employer] Counselor Unit deg Marisol Manzo, Reg Reg gb Jamilah Kc Brian, MD MD br1 Ally Chavez,RN RN rs3 Yesy Kelley,RN RN kc3 Marilin Carbone DO DO jo4 Jessica Licea RN RN senia2 Tracy Zamudio RNjSaravanan Mccord RT rs5 The chart was reviewed and I authenticate all verbal orders and agree with the evaluation and treatment provided.Corrections: (The following items were deleted from the chart) 16:28 16:25 TROPONIN+LAB ordered. EDMS EDMS Attachments: 15:50 [facility] [place] Agreement zo 02/25 11:12 T-Sheet-- Draft Copy gb 11:13 ECG/EKG gb Chart Complete MTDD
--- NOTE | 2016-02-27 20:30 | EDDOCDS ---
Nurse's Notes [facility] Name: Janessa Zhang Age: 80 yrs Sex: Female : 1935 Arrival Date: 02/25/2016 Time: 14:06 Bed 10 Private MD: Imelda Pope L. Diagnosis: Generalized abdominal pain Presentation: 02/24 14:09 Presenting complaint: states: Was at primary provider's office developed sudden rs3 onset abdominal pain. H/o weakness and low energy for a week. Denies of nausea/vomiting. Adult Sepsis Screening: The patient does not have new or worsening altered mentation. Patient's respiratory rate is less than 22. Systolic blood pressure is greater than 100. Patient has a qSOFA score of 0- Negative Sepsis Screen. Suicide/Homicide risk assessment- the patient denies having any suicidal and/or homicidal ideations and does not present with any other emotional, behavioral or mental health complaints. Status: Patient is not a service representative or dependent. Transition of care: patient was not received from another setting of care. 14:09 Acuity: ALTAF Level 3 rs3 14:09 Method Of Arrival: Wheelchair rs3 Triage Assessment: 14:14 General: Appears in no apparent distress. Pain: Pain currently is 7 out of 10 on a pain rs3 scale. GI: Reports lower abdominal pain, upper abdominal pain. Historical: - Allergies: PENICILLINS (Anaphylaxis); SULFA (SULFONAMIDES) (Anaphylaxis); - Home Meds: 1. aspirin 81 mg Oral chew 1 tab once daily 2. bisoprolol fumarate 5 mg oral tab 1 tab twice a day 3. cranberry 4200 mg oral daily 4. Breo Ellipta 100-25 mcg/dose inhalation dsdv 1 puff once daily 5. ferrous sulfate 325 mg (65 mg iron) Oral TbEC daily 6. fexofenadine 180 mg Oral tab 1 tab once daily 7. Glucosamine 500 mg oral tab 1500 mg daily 8. Janumet 100/1000 mg oral tab 1 tab daily 9. Lasix 80 mg Oral tab 1 tab 2 times per day 10. lutein 20 mg oral cap daily 11. metformin 1,000 mg Oral tab 1 tab daily 12. multivitamin Oral tab 1 tab daily 13. potassium chloride 10 mEq Oral cpER 1 cap once daily 14. pravastatin 20 mg oral tab 1 tab once daily 15. ramipril 10 mg Oral cap 1 cap once daily 16. Singulair 10 mg Oral tab 1 tab once daily 17. Vagifem 10 mcg vaginal tab 1 tab 2 times per wk 18. Vitamin D Oral 2000 unit daily - PMHx: CHF; Diabetes - NIDDM: controlled; Hypercholesterolemia; COPD; Hypertension; - PSHx: Hysterectomy; D & C; - Social history: Smoking status: Patient states was never smoker of tobacco. No barriers to communication noted, The patient speaks fluent [place]. - Family history: Not pertinent. - : The pt / caregiver states he / she is not on anticoagulants. Home medication list is obtained from the patient. - Exposure Risk Screening:: None identified. Screenin:34 Screening information is obtained from the patient. Fall risk: At risk due to age, The kc3 following interventions are performed due to a positive Fall Risk Screen: Fall Risk is added to Special Handling on the patient Summary Screen. A Fall Risk Bracelet was applied to the patient. Side Rails are placed in the up position. A Call Rodriguez is given with instruction to call for help when getting out of bed. Fall Alert bracelet is placed on the patient. Assistance ADL's: requires no assistance with activities of daily living. Abuse/DV Screen: The patient / caregiver reports he/she is: not in a situation that causes fear, pain or injury. Nutritional screening: No deficits noted. Advance Directives: Currently, there is no health care proxy. home support is adequate. Assessment: 14:31 General: Appears in no apparent distress, comfortable, Behavior is appropriate for age, kc3 cooperative, reports pt with weak and listless at home since Thursday with worsening confusion. . Pain: Location: abdomen. Neurological: Level of Consciousness is awake, alert, confused, obeys commands, Oriented to person, place, time. Respiratory: Respiratory effort is even, unlabored, Respiratory pattern is regular, symmetrical. GI: Abdomen is obese, Bowel sounds present X 4 quads. Abd is soft X 4 quads Abd is tender to palpation in right lower quadrant and left lower quadrant Reports lower abdominal pain, Denies nausea, vomiting. Derm: Skin is pink, warm & dry. Derm: Skin is pink, warm & dry. Musculoskeletal: Circulation, motion, and sensation intact. 15:40 General: Appears in no apparent distress, comfortable, Behavior is appropriate for age, kc3 cooperative. Pain: Location: abdomen. Neurological: Level of Consciousness is awake, alert, obeys commands, Oriented to person, place, time. Respiratory: Respiratory effort is even, unlabored. Derm: Skin is pink, warm & dry. Musculoskeletal: Circulation, motion, and sensation intact. 16:30 General: Appears in no apparent distress, comfortable, Behavior is appropriate for age, kc3 cooperative. Pain: Denies pain. Neurological: No deficits noted. Respiratory: Respiratory effort is even, unlabored. GI: Denies nausea. Derm: Skin is pink, warm & dry. 17:20 General: Appears in no apparent distress, comfortable, Behavior is appropriate for age, kc3 cooperative. Pain: Denies pain. Neurological: No deficits noted. Respiratory: Respiratory effort is even, unlabored. Derm: Skin is pink, warm & dry. 18:12 General: Appears in no apparent distress, comfortable, Behavior is appropriate for age, kc3 cooperative. Pain: Denies pain. Neurological: Level of Consciousness is awake, alert, obeys commands. Respiratory: Respiratory effort is even, unlabored. Derm: Skin is pink, warm & dry. 18:22 General: Appears in no apparent distress, comfortable, Behavior is appropriate for age, kc3 cooperative. 19:00 General: Verbal report given by Yesy Kelley RN. Assumed care of patient at this time... kas2 19:15 General: Appears in no apparent distress, comfortable, well nourished, well groomed, kas2 Behavior is appropriate for age, cooperative. Pain: Denies pain. Neurological: No deficits noted. Level of Consciousness is awake, alert, Oriented to person, place, time. Respiratory: Respiratory effort is even, unlabored, Respiratory pattern is regular, symmetrical, Breath sounds are clear bilaterally. Derm: Skin is intact, is healthy with good turgor, Skin is dry, Skin is pink, warm & dry. Skin temperature is warm. Vital Signs: 14:07 BP 160 / 104; Pulse 112; Resp 20 S; Temp 97.1; Pulse Ox 97% on R/A; Weight 72.57 kg dd6 (R); Height 5 ft. 0 in. (152.40 cm) (R); 14:25 BP 123 / 69 (auto/); kc3 14:37 Pulse 102 MON; Pulse Ox 92% ; kc3 14:54 Pulse 102 MON; Pulse Ox 92% ; kc3 14:55 BP 148 / 66 (auto/); kc3 15:25 BP 160 / 70 (auto/); kc3 15:25 Pulse 102 MON; Pulse Ox 93% ; kc3 15:56 Pulse 104 MON; Pulse Ox 94% ; kc3 15:57 BP 166 / 73 (auto/); kc3 16:24 Pulse 106 MON; Pulse Ox 97% ; kc3 16:25 BP 165 / 72 (auto/); kc3 16:54 Pulse 96 MON; Pulse Ox 97% ; kc3 16:55 BP 187 / 92 (auto/); kc3 17:04 Pulse 96 MON; Pulse Ox 96% ; kc3 17:05 BP 138 / 67 (auto/); kc3 17:06 BP 138 / 67; Pain 0/10; kc3 17:24 Pulse 94 MON; Pulse Ox 95% ; kc3 17:25 BP 122 / 63 (auto/); kc3 18:09 BP 134 / 60 (auto/); kc3 18:11 Pulse 86 MON; Resp 18; Pulse Ox 98% 2 lpm ; Pain 0/10; kc3 19:24 BP 132 / 63 RA Supine (auto/reg); Pulse 84 MON; Resp 20 S; Temp 98.9(O); Pulse Ox 97% cln on R/A; Pain 0/10; 14:07 Body Mass Index 31.25 (72.57 kg, 152.40 cm) dd6 Vitals: 14:07 Log In Time: February 25, 2016 at 14:05. dd6 ED Course: 14:07 Patient visited by Efrain Allen PCA. dd6 14:07 Imelda Pope is Private Physician. dd6 14:07 Patient moved to Waiting dd6 14:08 Patient moved to Pre RCE dd6 14:11 Triage Initiated rs3 14:15 Yesy Kelley,ALISE is Primary Nurse. rs3 14:15 Patient moved to 10 rs3 14:18 [facility] jo4 14:18 Eyal Celis MD is Attending Physician. jo4 14:34 The patient / caregiver is instructed regarding the plan of care and ED course. kc3 14:36 Patient visited by Yesy Kelley RN. kc3 15:27 Patient visited by Eyal Celis MD. br1 15:35 EKG done. (by ED staff). Reviewed by Eyal Celis MD. ct3 15:40 Patient visited by Vanessa Monzon PCA. ct3 15:50 [facility] Payment Agreement was scanned into [employer] and attached to record. zo 16:00 Patient visited by Angelica Licea RN. ms18 16:00 Lipase Sent. ms18 16:00 Amylase Sent. ms18 16:00 Liver Profile Sent. ms18 16:00 BMP Sent. ms18 16:00 CBC with Diff Sent. ms18 16:00 Inserted saline lock: 20 gauge in left antecubital area and blood collected. The ms18 patient tolerated the procedure well. 17:06 Patient visited by Yesy Kelley RN. kc3 17:10 Chest, 2 View (pa\E\lat) Returned. EDMS 17:32 DIFFERENTIAL NO CHARGE Sent. kc3 18:08 Patient visited by Yesy Kelley RN. kc3 18:11 Patient visited by Yesy Kelley RN. kc3 18:52 CT ABD & PELVIS: IV and Oral Contrast Returned. EDMS 18:56 Jessica Licea RN is Primary Nurse. kas2 19:00 Patient visited by Jessica Licea RN. kas2 19:02 Imelda Pope is Referral Physician. jo4 19:25 Patient visited by Priscilla Burns PCA. cln 19:28 Discontinued IV bleeding controlled, pressure dressing applied, No redness/swelling at kas2 site. No procedures done that require assistance. 19:29 Patient visited by Jessica Licea RN. kas2 02/25 11:12 T-Sheet-- Draft Copy was scanned into [employer] and attached to record. gb 11:13 ECG/EKG was scanned into [employer] and attached to record. gb 20:25 EKG-ADULT Returned. EDMS Administered Medications: 02/24 15:30 Drug: Albuterol 2.5 mg [albuterol sulfate 2.5 mg/0.5 mL solution for nebulization (0.5 rs5 mL)] Route: Nebulizer; 15:55 Drug: Diatrizoate Meglumine & Sodium 10 ml [diatrizoate meglumine and diat.sodium 66 kc3 %-10 % oral solution (10 mL)] {Note: first oral contrast dose. .} Route: PO; 16:25 Drug: morphine 4 mg [morphine 4 mg/mL intravenous cartridge (1 mL)] Route: IVP; Site: jjr left antecubital; 17:06 Follow up: BP 138 / 67; Pain 0/10 Adult kc3 16:25 Drug: Ondansetron 4 mg [ondansetron HCl 2 mg/mL intravenous solution (2 mL)] Route: jjr IVP; Site: left antecubital; 17:06 Follow up: Response: No Adverse Reaction kc3 16:25 Drug: Diatrizoate Meglumine & Sodium 10 ml [diatrizoate meglumine and diat.sodium 66 kc3 %-10 % oral solution (10 mL)] Route: PO; RT: 15:38 Initial Med Neb Given as ordered Patient was instructed and evaluated on procedure rs5 Patient tolerated procedure well without adverse effect. Respiratory: Airway is patent Respiratory effort is even, unlabored, Respiratory pattern is regular symmetrical, Order Results: Lab Order: CBC with Diff; SPEC'M 02/25/16 15:58 Test: WHITE BLOOD COUNT; Value: 12.0; Range: 4.0-10.0; Abnormal: Above high normal; Units: K/mm3; Status: F Test: RED BLOOD COUNT; Value: 3.61; Range: 4.00-5.40; Abnormal: Below low normal; Units: M/mm3; Status: F Test: HEMOGLOBIN; Value: 12.0; Range: 12.0-16.0; Units: g/dl; Status: F Test: HEMATOCRIT; Value: 36.1; Range: 36.0-47.0; Units: %; Status: F Test: MEAN CORPUSCULAR VOLUME; Value: 99.8; Range: 80.0-96.0; Abnormal: Above high normal; Units: fl; Status: F Test: MEAN CORPUSCULAR HEMOGLOBIN; Value: 33.3; Range: 27.0-33.0; Abnormal: Above high normal; Units: pg; Status: F Test: MEAN CORPUSCULAR HGB CONC; Value: 33.3; Range: 32.0-36.5; Units: g/dl; Status: F Test: RED CELL DISTRIBUTION WIDTH; Value: 13.4; Range: 11.5-14.5; Units: %; Status: F Test: PLATELET COUNT, AUTOMATED; Value: 295; Range: 150-450; Units: k/mm3; Status: F Test: NEUTROPHILS; Value: 79; Range: 35-75; Abnormal: Above high normal; Units: %; Status: F Test: LYMPHOCYTES; Value: 8; Range: 16-52; Abnormal: Below low normal; Units: %; Status: F Test: MONOCYTES; Value: 10; Range: 0-8; Abnormal: Above high normal; Units: %; Status: F Test: ATYPICAL LYMPH; Value: 3; Range: 0-5; Units: %; Status: F Test: RBC MORPHOLOGY; Value: NORMAL; Status: F Lab Order: [facility] 02/25[facility] 15:58 Test: GLUCOSE, FASTING; Value: 338; Range: 83-110; Abnormal: Above high normal; Units: MG/DL; Status: F Test: BLOOD UREA NITROGEN; Value: 16; Range: 7-18; Units: MG/DL; Status: F Test: CREATININE FOR GFR; Value: 1.06; Range: 0.55-1.02; Abnormal: Above high normal; Units: MG/DL; Status: F Test: GLOMERULAR FILTRATION RATE; Value: 53.0; Range: >32; Status: F Test: SODIUM LEVEL; Value: 135; Range: 136-145; Abnormal: Below low normal; Units: MEQ/L; Status: F Test: POTASSIUM SERUM; Value: 3.8; Range: 3.5-5.1; Units: MEQ/L; Status: F Test: CHLORIDE LEVEL; Value: 97; Range: 98-107; Abnormal: Below low normal; Units: MEQ/L; Status: F Test: CARBON DIOXIDE LEVEL; Value: 25; Range: 21-32; Units: MEQ/L; Status: F Test: ANION GAP; Value: 13; Range: 8-16; Units: MEQ/L; Status: F Test: CALCIUM LEVEL; Value: 9.3; Range: 8.8-10.2; Units: MG/DL; Status: F Test Note: ; Units are mL/min/1.73 m2 Chronic Kidney Disease Staging per NKF: Stage I & II GFR >=60 Normal to Mildly Decreased Stage III GFR 30-59 Moderately Decreased Stage IV GFR 15-29 Severely Decreased Stage V GFR <15 Very Little GFR Left ESRD GFR <15 on TECHNICAL SERVICES MANAGER Lab Order: Liver Profile; [facility] 02/25/16 15:58 Test: AST/SGOT; Value: 44; Range: 15-37; Abnormal: Above high normal; Units: U/L; Status: F Test: ALT/SGPT; Value: 50; Range: 12-78; Units: U/L; Status: F Test: ALKALINE PHOSPHATASE; Value: 74; Range: 45-117; Units: U/L; Status: F Test: BILIRUBIN,TOTAL; Value: 0.6; Range: 0.2-1.0; Units: MG/DL; Status: F Test: BILIRUBIN,DIRECT; Value: 0.2; Range: 0.0-0.2; Units: MG/DL; Status: F Test: TOTAL PROTEIN; Value: 7.5; Range: 6.4-8.2; Units: GM/DL; Status: F Test: ALBUMIN; Value: 2.9; Range: 3.2-5.2; Abnormal: Below low normal; Units: GM/DL; Status: F Test: ALBUMIN/GLOBULIN RATIO; Value: 0.63; Range: 1.00-1.93; Abnormal: Below low normal; Status: F Lab Order: Amylase; [facility] 02/25/16 15:58 Test: AMYLASE; Value: 37; Range: 25-115; Units: U/L; Status: F Lab Order: Lipase; [facility] 02/25/16 15:58 Test: LIPASE; Value: 132; Range: 73-393; Units: U/L; Status: F Lab Order: TROPONIN; [facility] 02/25/16 15:58 Test: TROPONIN I; Value: < 0.02; Range: < 0.10; Units: NG/ML; Status: F Test Note: ; Troponin I Reference Interval for Siemens Biglion LOCI: 99th Percentile= 0.00-0.045 ng/ml Risk Stratification: <= 0.10 ng/ml Decreased Risk for Adverse Clinical Events. 0.10-1.50 ng/ml Increased Risk for Adverse Clinical Events. Evaluation of additional criterion and/or repeat testing in 2-6 hours is suggested to rule out myocardial damage. >= 1.50 ng/ml Indicative of Myocardial Injury. Lab Order: PLATELET ESTIMATE; SPEC'M 02/25/16 15:58 Test: PLATELET ESTIMATE; Value: NORMAL; Range: NORMAL; Status: F Radiology Order: EKG-ADULT Test: EKG-ADULT REASON FOR EXAMINATION: Chest Pain; Stationary ECG Study; [facility] - ED; ; Test Date: 2016-02-25; Pat Name: JANESSA ZHANG Department:; Room: -; Gender: F Curriculum Development Specialist: ct; : 1935 Requested By: MARILIN CASTRO; Order Number: [id number] Reading MD: Mana Lyon; Measurements; Intervals [place]; Rate: 98 P: 18; CA: 199 QRS: 17; QRSD: 63 T: 37; QT: 314; QTc: 403; Interpretive Statements; SINUS RHYTHM; POSSIBLE LEFT ATRIAL ENLARGEMENT; NONSPECIFIC ST T-WAVE ABNORMALITY; INCREASED RATE 09/24/15; Electronically Signed On 02-26-2016 19:49:29 EST by Mana Lyon; Radiology Order: Chest, 2 View (pa\E\lat) Test: Chest, 2 View (pa\E\lat) REASON FOR EXAMINATION: Chest Pain; Clinical: Chest pain.; ; Technique: PA and lateral.; ; Comparison: 02/05/2016.; ; Findings:; Mediastinum and cardiac silhouette are within normal limits and stable. Lung; stack demonstrate diffuse chronic interstitial changes and superimposed acute; left lower lobe infiltrate cannot be excluded. No effusion. No pneumothorax.; Skeletal structures demonstrate osteopenia and degenerative changes.; ; Impression:; Diffuse chronic interstitial changes.; Cannot exclude superimposed basilar infiltrate/atelectasis.; ; ; Signed by; Roni Oneal MD 02/25/2016 04:33 P; Radiology Order: CT ABD & PELVIS: IV and Oral Contrast Test: CT ABD & PELVIS: IV and Oral Contrast REASON FOR EXAMINATION: Midline/epigastric abdominal pain; Clinical: Midline abdominal and epigastric pain.; ; Technique: Axial contrast enhanced images from the lung bases to the pubic; symphysis using oral and 100 ml Isovue 370 intravenous contrast material with; coronal and sagittal re-formations.; ; Comparison: 09/24/2015.; ; Findings:; Lung bases demonstrate chronic appearing fibro atelectatic changes along with; bronchiectasis. Visualized portions of the heart and pericardium are stable and; within normal limits.; ; Fatty infiltration to the liver is appreciated with small subcentimeter; hypodensity in the right lobe which may reflect small cyst or hemangioma. No; further hepatic lesions are identified. Spleen, pancreas, gallbladder, bilateral; adrenal glands and kidneys are relatively normal / stable. Kidneys again; demonstrate cortical atrophic changes and chronic perinephric stranding. The; enteric system is without obstruction or acute inflammatory process. Sigmoid; diverticula noted without acute diverticulitis. Pelvis demonstrates normal; bladder and evidence for prior hysterectomy. Atherosclerotic changes to the; abdominal aorta and vasculature noted without aneurysm or dissection. Skeletal; structures demonstrate degenerative changes without focal osseous abnormality.; ; Impression:; Chronic stable changes detailed above.; No acute intra-abdominal or pelvic pathology appreciated.; ; ; Signed by; Roni Oneal MD 02/25/2016 06:10 P; Outcome: 18:30 CT Study completed. [facility] 19:03 Discharge ordered by Provider. jo4 19:28 Discharge Assessment: patient administered narcotics - no. The following High Risk [facility] Discharge criteria are identified: None. Discharged to home via wheelchair, with significant other. Condition: good Condition: stable Condition: improved. Property :Personal belongings accompany Pt. 19:29 Patient left the ED. [facility] Signatures: Dispatcher [employer] EDMS Marisol Manzo, Syd Reg Jamilah Arguelles Brian, MD MD br1 Tracy Zamudio RN RN jjr Desormeau, Daniell, WIRE TWISTER WIRE TWISTER dd6 Ally Chavez RN RN rs3 Vanessa Monzon, WIRE TWISTER WIRE TWISTER ct3 Saravanan Alfaor,RT RT rs5 Angelica Licea,ALISE RN ms18 Yesy Kelley,RN RN kc3 Marilin Carbone DO DO jo4 Jessica Licea RN RN kas2 Priscilla Burns, WIRE TWISTER WIRE TWISTER cln Corrections: (The following items were deleted from the chart) 14:39 14:31 General: Appears in no apparent distress, comfortable, Behavior is appropriate [facility] for age, cooperative, [facility] 16:28 16:26 TROPONIN+LAB sent. [facility] EDMS Chart Complete MTDD
== END 2016-02-25 19:29 | disposition home or self-care (01) ==
LOC: M ED 14:06
DX: R10.84 Generalized abdominal pain (principal); R11.0 Nausea; K76.0 Fatty (change of) liver, not elsewhere classified; I50.9 Heart failure, unspecified; E11.9 Type 2 diabetes mellitus without complications; E78.00 Pure hypercholesterolemia, unspecified; J44.9 Chronic obstructive pulmonary disease, unspecified; I10 Essential (primary) hypertension; Z90.79 Acquired absence of other genital organ(s); Z79.51 Long term (current) use of inhaled steroids; Z79.82 Long term (current) use of aspirin; Z79.899 Other long term (current) drug therapy; Z88.0 Allergy status to penicillin; Z88.2 Allergy status to sulfonamides
CPT/HCPCS: 36415; 71020; 74177; 80048; 80076; 82150; 83690; 84484; 85025; 93005; 94640; 96374; 96375; 99284; J2405; Q9963; Q9967

== ENCOUNTER → 2016-02-27 | Outpatient (REF) | payer MEDICARE, OTHER | LOC: M SFHCPLAZ 16:22 | PROVIDERS: ATTEND Nurse Practitioner Adult Health | DX: R41.0 Disorientation, unspecified (principal) ==

== ENCOUNTER → 2016-03-03 | Outpatient (REF) | payer MEDICARE, OTHER | LOC: M SFHCPLAZ 16:18 | PROVIDERS: ATTEND Nurse Practitioner Adult Health | DX: E11.9 Type 2 diabetes mellitus without complications (principal) | CPT/HCPCS: 36415; 83036; G0463 ==

== ENCOUNTER → 2016-04-02 | Outpatient (REF) | payer MEDICARE, OTHER ==
[2016-04-02 18:48] LABS: MEAN CORPUSCULAR HEMOGLOBIN 34.7 pg (27.0-33.0); MEAN CORPUSCULAR HGB CONC 33.1 g/dl (32.0-36.5); MEAN CORPUSCULAR VOLUME 104.9 fl (80.0-96.0); RED CELL DISTRIBUTION WIDTH 13.8 % (11.5-14.5); WHITE BLOOD COUNT 9.5 K/mm3 (4.0-10.0)
[2016-04-02 19:05] LABS: ALBUMIN/GLOBULIN RATIO 1.03 (1.00-1.93); BILIRUBIN,TOTAL 0.3 MG/DL (0.2-1.0); CALCIUM LEVEL 10.4 MG/DL (8.8-10.2); GLOMERULAR FILTRATION RATE 56.6 (>32); POTASSIUM SERUM 4.7 MEQ/L (3.5-5.1); TOTAL PROTEIN 7.9 GM/DL (6.4-8.2)
== END ==
LOC: M SFHCPLAZ 15:54
PROVIDERS: ATTEND Nurse Practitioner Adult Health
DX: I50.30 Unspecified diastolic (congestive) heart failure (principal); E11.9 Type 2 diabetes mellitus without complications; R41.89 Other symptoms and signs involving cognitive functions and awareness
CPT/HCPCS: 36415; 80053; 82607; 83036; 84443; 85027; G0463

== ENCOUNTER → 2016-04-09 | Outpatient (CLI) | payer MEDICARE, OTHER ==
--- NOTE | 2016-04-09 08:50 | REP ---
CT HEAD WITHOUT CONTRAST: HISTORY: Cognitive impairment. COMPARISON: 01/10/2015. Areas of decreased attenuation are present in the periventricular and subcortical white matter. This represents small vessel ischemic disease. There is no intraparenchymal hemorrhage, mass or midline shift. The ventricular system and cortical sulci as well as subarachnoid space in the posterior fossa are dilated consistent with moderate volume loss. There is no extracerebral collection. The visualized sinuses are clear. IMPRESSION: 1. Small vessel ischemic disease. 2. Moderate volume loss. Signed by Aakash Eugene MD 04/09/2016 08:53 A
== END ==
LOC: M RAD 08:02
PROVIDERS: ATTEND Nurse Practitioner Adult Health
DX: R41.89 Other symptoms and signs involving cognitive functions and awareness (principal)

== ENCOUNTER → 2016-06-05 | Outpatient (REF) | payer MEDICARE, OTHER ==
[2016-06-05 19:14] LABS: MEAN CORPUSCULAR HEMOGLOBIN 33.5 pg (27.0-33.0); MEAN CORPUSCULAR HGB CONC 32.7 g/dl (32.0-36.5); MEAN CORPUSCULAR VOLUME 102.6 fl (80.0-96.0); RED CELL DISTRIBUTION WIDTH 13.7 % (11.5-14.5); WHITE BLOOD COUNT 9.2 K/mm3 (4.0-10.0)
[2016-06-05 19:27] LABS: ALBUMIN 3.8 GM/DL (3.2-5.2); BILIRUBIN,TOTAL 0.2 MG/DL (0.2-1.0); CALCIUM LEVEL 9.2 MG/DL (8.8-10.2); CREATININE FOR GFR 1.03 MG/DL (0.55-1.02); GLOMERULAR FILTRATION RATE 54.7 (>32); POTASSIUM SERUM 4.2 MEQ/L (3.5-5.1); TOTAL PROTEIN 7.6 GM/DL (6.4-8.2)
== END ==
LOC: M SFHCPLAZ 15:32
PROVIDERS: ATTEND Nurse Practitioner Adult Health
DX: D64.9 Anemia, unspecified (principal); K76.0 Fatty (change of) liver, not elsewhere classified; E11.9 Type 2 diabetes mellitus without complications

== ENCOUNTER → 2016-08-08 | Outpatient (CLI) | payer MEDICARE, OTHER ==
--- NOTE | 2016-08-08 12:30 | REP ---
REASON: Asthma. PRIORS: Multiple, the latest 02/25/2016. Chronic change is seen throughout the lung stack with mild basilar fibrosis status quo. Cardiomediastinal silhouette is unchanged. There are no acute patchy parenchymal opacities or pleural effusions. There is mild lung field hypoexpansion crowding the basilar vascularity. IMPRESSION: Essentially stable appearing chronic changes with findings as described above. Signed by Nikhil Grajeda DO 08/08/2016 01:43 P
== END ==
LOC: M WUC 10:00
PROVIDERS: ATTEND Nurse Practitioner Adult Health
DX: J45.909 Unspecified asthma, uncomplicated (principal)

== ENCOUNTER → 2016-11-11 | Outpatient (CLI) | payer MEDICARE, OTHER ==
[~2016-11-11] MED LIST: ASPI81TAEC PO; BISO5TAB5 PO; BREO1INH3 INH; CRAN400C PO; DONE5TAB17 PO; DYMI137S; FERR1TAB8 PO; FEXO180T58 PO; FLUC150T PO; FURO80TA2 PO; GLIP2.5T6 PO; GLUCTAB6 PO; LASI80TA PO; MACR100C43 PO; MEMA1TAB2 PO; METF-699 PO; METF500T4 PO; MONT10TA2 PO; PRAV20TA2 PO; RAMI10CA PO; VENTAER INH; VITMTA PO; [UNRECOGNIZED DRUG - CODE] PV
--- NOTE | 2016-11-11 16:11 | REP ---
KUB, TWO VIEWS: HISTORY: Abdominal bloating. Air is present in the small and large intestine. There are no air fluid levels with dilated loops of intestine. There is no pneumoperitoneum. Degenerative change is present in the spine. IMPRESSION: Nonspecific bowel gas pattern. Signed by Aakash Eugene MD 11/11/2016 04:23 P
[2016-11-11 17:57] LABS: ALBUMIN 3.5 GM/DL (3.2-5.2); ALBUMIN/GLOBULIN RATIO 0.95 (1.00-1.93); BILIRUBIN,TOTAL 0.4 MG/DL (0.2-1.0); CALCIUM LEVEL 10.1 MG/DL (8.8-10.2); CREATININE FOR GFR 1.1 MG/DL (0.55-1.02); GLOMERULAR FILTRATION RATE 50.6 (>32); POTASSIUM SERUM 4.6 MEQ/L (3.5-5.1); TOTAL PROTEIN 7.2 GM/DL (6.4-8.2)
[2016-11-11 18:03] LABS: MEAN CORPUSCULAR HEMOGLOBIN 34.7 pg (27.0-33.0); MEAN CORPUSCULAR HGB CONC 32.3 g/dl (32.0-36.5); MEAN CORPUSCULAR VOLUME 107.3 fl (80.0-96.0); RED CELL DISTRIBUTION WIDTH 13.3 % (11.5-14.5); WHITE BLOOD COUNT 12.6 10^3/uL (4.0-10.0)
== END ==
LOC: M WUC 12:37
PROVIDERS: ATTEND Nurse Practitioner Adult Health
DX: R14.0 Abdominal distension (gaseous) (principal); I50.30 Unspecified diastolic (congestive) heart failure
CPT/HCPCS: 36415; 74000; 80053; 82150; 83690; 85027; G0463

== ENCOUNTER 2016-12-22 19:40 | Inpatient (IN) | payer MEDICARE, OTHER ==
[~2016-12-22] VITALS: Ht 157.5 cm; Wt 70.5 kg
[2016-12-22] MEDS ORDERED: MEMA1TAB2 PO ×2 (20:04→23:21)
[2016-12-22] MEDS ORDERED: PRAV20TA2 PO ×2 (20:04→23:21)
[2016-12-22] MEDS ORDERED: RAMI10CA PO ×2 (20:04→23:21)
[2016-12-22] MEDS ORDERED: BISO5TAB5 PO ×2 (20:04→23:21)
[2016-12-22] MEDS ORDERED: FEXO180T58 PO ×2 (20:04→23:21)
[2016-12-22] MEDS ORDERED: GLIP2.5T6 PO ×2 (20:04→23:21)
[2016-12-22] MEDS ORDERED: LASI80TA PO (20:04)
[2016-12-22] MEDS ORDERED: METF500T4 PO (20:04)
[2016-12-22 21:04] LABS: BASO # 0.1 10^3/uL (0.0-0.2); BASO % 0.3 % (0.0-1.0); EOS % 0.1 % (0.0-3.0); IMMATURE GRANULOCYTE % 0.7 % (0-0); LYMPH # 0.3 10^3/uL (1.5-4.5); MEAN CORPUSCULAR HEMOGLOBIN 34.6 pg (27.0-33.0); MEAN CORPUSCULAR HGB CONC 33.2 g/dl (32.0-36.5); MEAN CORPUSCULAR VOLUME 104.2 fl (80.0-96.0); MONO # 0.8 10^3/uL (0.0-0.8); MONO % 5.3 % (0.0-5.0); NEUTROPHILS # 14.1 10^3/uL (1.8-7.7); NEUTROPHILS % 91.8 % (36.0-66.0); PLATELET COUNT, AUTOMATED 313 10^3/uL (150-450); RED CELL DISTRIBUTION WIDTH 13.3 % (11.5-14.5); WHITE BLOOD COUNT 15.4 10^3/uL (4.0-10.0)
[2016-12-22 21:29] LABS: POSITIVE DIFF POS FLAG
[2016-12-22 21:30] LABS: LYMPH % 1.8 % (24.0-44.0)
[2016-12-22 21:31] LABS: ALBUMIN 3.5 GM/DL (3.2-5.2); ALBUMIN/GLOBULIN RATIO 0.92 (1.00-1.93); ALKALINE PHOSPHATASE 68 U/L (45-117); ALT/SGPT 108 U/L (12-78); ANION GAP 16 MEQ/L (8-16); AST/SGOT 105 U/L (7-37); BILIRUBIN,DIRECT 0.2 MG/DL (0.0-0.2); BILIRUBIN,TOTAL 0.5 MG/DL (0.2-1.0); BLOOD UREA NITROGEN 25 MG/DL (7-18); CALCIUM LEVEL 9.6 MG/DL (8.8-10.2); CARBON DIOXIDE LEVEL 18 MEQ/L (21-32); CHLORIDE LEVEL 99 MEQ/L (98-107); CREATININE FOR GFR 1.47 MG/DL (0.55-1.02); GLOMERULAR FILTRATION RATE 36.2 (>32); GLUCOSE, FASTING 343 MG/DL (83-110); POTASSIUM SERUM 4.4 MEQ/L (3.5-5.1); SODIUM LEVEL 133 MEQ/L (136-145); TOTAL PROTEIN 7.3 GM/DL (6.4-8.2)
[2016-12-22] MEDS ORDERED: ISOVUE-370 76% 100ML VIAL (Q9967) As Ordered ONE (21:34)
[2016-12-22] MEDS ORDERED: NS 500 ML IV ONE (21:45)
--- NOTE | 2016-12-22 22:20 | REPUSA ---
CT of the head Clinical history: altered mental status. Comparison: 04/09/2016. Protocol: Multiple axial CT images obtained with 5 mm slice thickness were obtained through the head without administration of contrast. Findings: The ventricles and sulci are symmetric but prominent in size bilaterally. There are periven tricular areas of low attenuation throughout the deep white matter. There is no evidence of acute hem orrhage or infarct. There is no midline shift, mass effect, or extra-axial fluid collection. The osse ous structures are unremarkable. The visualized paranasal sinuses and mastoid air cells are clear. Impression: No acute hemorrhage or infarct. Findings are consistent with moderate age-related atrophy and chronic small vessel ischemic disease.
--- NOTE | 2016-12-22 22:20 | REPUSA ---
CT of the abdomen and pelvis with contrast Clinical statement: Pain. Technique: Multiple axial CT images were obtained from the base of the lungs through the floor of the pelvis utilizing 5 mm axial slices after administration of oral and nonionic intravenous contrast. C oronal and sagittal reconstructions were also obtained. Comparison: 02/25/2016. Findings: Chest: The visualized lung bases demonstrate minimal bilateral atelectasis. There is a small hiatal h ernia. Abdomen: The spleen, pancreas, kidneys, gallbladder, and adrenal glands are unremarkable. The liver i s enlarged, measuring 20.6 cm. There is an ill-defined low attenuation lesion in the right lobe of th e liver measuring 3.9 x 3.3 cm. This lesion has overall increased in size when compared the prior bridger dy, when it measured 2.1 x 2.8 cm. Mild peripheral enhancement is seen within this lesion. The hepati c and portal veins are patent. There is no evidence of biliary ductal dilatation. The aorta demonstra maril moderate diffuse atherosclerotic changes. There is no evidence of aneurysm or dissection. There i s no evidence of abdominal lymphadenopathy or ascites. Pelvis: The bowel is unremarkable, with no obstructive or inflammatory changes. There is minimal sigm oid diverticulosis. The urinary bladder is within normal limits. The other pelvic structures appear g rossly intact. There is no evidence of pelvic lymphadenopathy or ascites. Bones: There are no suspicious osseous abnormalities seen. Moderately severe multilevel degenerative disc disease is seen throughout the lumbar spine, with disc osteophyte complexes noted. There is no e vidence of central canal stenosis, but moderate bilateral neural foraminal narrowing is seen at all l umbar vertebral levels. Impression: 1. Interval increasing size of the hypodense solid mass within the right lobe of the liver since the prior study of 02/25/2016. The lesion now demonstrates less internal enhancement. MRI with contrast usi ng hepatic protocol is recommended for further evaluation. 2. Hepatomegaly is stable. 3. Mild sigmoid diverticulosis. No obstructive or inflammatory bowel changes. 4. Moderate diffuse atherosclerosis of the abdominal aorta. 5. Moderately severe multilevel degenerative disc disease with disc osteophyte complexes, causing mul tilevel bilateral neural foraminal narrowing. No discrete evidence of central canal stenosis. If ther e is further clinical concern, MRI of the lumbar spine could be performed.
[2016-12-22] MEDS ORDERED: GLUCTAB6 PO (23:21)
[2016-12-22] MEDS ORDERED: METF-699 PO (23:21)
[2016-12-22] MEDS ORDERED: [UNRECOGNIZED DRUG - CODE] PV (23:21)
[2016-12-22] MEDS ORDERED: VENTAER INH (23:21)
[2016-12-22] MEDS ORDERED: ASPI81TAEC PO (23:21)
[2016-12-22] MEDS ORDERED: BREO1INH3 INH (23:21)
[2016-12-22] MEDS ORDERED: FERR1TAB8 PO (23:21)
[2016-12-22] MEDS ORDERED: DONE5TAB17 PO (23:21)
[2016-12-22] MEDS ORDERED: FLUC150T PO (23:21)
[2016-12-22] MEDS ORDERED: MACR100C43 PO (23:21)
[2016-12-22] MEDS ORDERED: FURO80TA2 PO (23:21)
[2016-12-22] MEDS ORDERED: MONT10TA2 PO (23:21)
[2016-12-22] MEDS ORDERED: DYMI137S (23:21)
[2016-12-22] MEDS ORDERED: CRAN400C PO (23:21)
[2016-12-22] MEDS ORDERED: VITMTA PO (23:21)
[2016-12-22] MEDS ORDERED: ONDANSETRON 4MG/2ML VIAL (J2405) IV PRN (23:45)
[2016-12-23] MEDS ORDERED: NS 1,000 ML IV SCH (00:49)
[2016-12-23 00:51] LABS: ABG BASE EXCESS -2.9 (-2.0-2.0); ABG HCO3 19.2 MEQ/L (22.0-26.0); ABG PARTIAL PRESSURE CO2 26.5 mmHg (35.0-45.0); ABG PARTIAL PRESSURE O2 61.9 mmHg (75.0-100.0); ABG pH (ARTERIAL) 7.478 UNITS (7.350-7.450)
[2016-12-23 00:58] LABS: INR 1.05
[2016-12-23 01:15] LABS: ALBUMIN 3.2 GM/DL (3.2-5.2); ALKALINE PHOSPHATASE 62 U/L (45-117); ALT/SGPT 103 U/L (12-78); AST/SGOT 118 U/L (7-37); BILIRUBIN,DIRECT < 0.1 MG/DL (0.0-0.2); BILIRUBIN,TOTAL 0.6 MG/DL (0.2-1.0); TOTAL PROTEIN 7.2 GM/DL (6.4-8.2)
[2016-12-23] MEDS ORDERED: DEXTROSE 50% 50 ML SYRINGE IV PRN (01:15)
[2016-12-23] MEDS ORDERED: ALBUTEROL 90 MCG/ACT 8GM HFA INHALER INH PRN (01:15)
[2016-12-23] MEDS ORDERED: GLUCOSE 4 GM CHEW TABLET PO PRN (01:15)
[2016-12-23] MEDS ORDERED: GLUCAGON FOR INJ 1 MG VIAL (J1610) SC PRN (01:15)
[2016-12-23 01:33] LABS: ERYTHROCYTE SEDIMENTATION RATE 54 mm/hr (0-30)
[2016-12-23 02:20] VITALS: BP 149/82
[2016-12-23] MEDS: HumaLOG INSULIN (NovoLOG) PER UNIT SC SCH ×5 (02:51→19:45)
--- NOTE | 2016-12-23 02:53 | HPE ---
DATE OF ADMISSION: 12/22/2016 PRIMARY CARE PROVIDER: Imelda Pope. HOSPITAL ATTENDING: Dr. Parks CHIEF COMPLAINT: Altered mental status. HISTORY OF PRESENTING ILLNESS: This is an 81-year-old female presents to the emergency room (ER) with acute onset of acute mental status change according to the . Patient has been diagnosed with dementia for several months since May 2016, by Imelda Pope. Complained of few months' history of weakness, decreased energy, but usually able to walk with her cane or unassisted. This morning for breakfast, patient has had decrease in appetite, had a massage and returned home by noon, took a nap on the couch around 1:30 to 2 o'clock, had gone to the bathroom. Patient was able to return back and walked about 30 feet back to couch. Around 3:30, 4 o'clock patient got up again to go to the bathroom. On the way back, her leg felt like it was giving way and the caught her before she fell to the ground. put her in an office chair with wheels and took her to the living room. He then called a friend who is a retired registered nurse (RN), who encouraged him to call the ambulance to bring her to the emergency room for further evaluation. Patient's otherwise denies any fevers, chills, cough, nausea, vomiting, diarrhea, bright red blood per rectum, melena. Patient is disoriented to year, but able to recognize the . She has no dysarthria. No facial asymmetry. In the emergency room (ER), CT of the head was negative for acute hemorrhage or infarct. Blood pressure was 130-170. Patient was awake, alert, oriented to her name only according to which is her baseline. She was afebrile, but white count was 15,000, lactic acid of 8, and currently with chronic kidney disease, creatinine of 1.4 with baseline of 1.1. She does have a history of urinary tract infections dating back to February 2016, but urinalysis was negative and showed no leukocyte esterase, white blood cells (WBCs) or bacteria. Chest x-ray was unremarkable. No acute infiltrate. CT abdomen and pelvis showed increase in the solid mass in the right lobe of the liver. MRI recommended for further enhancement. It measures 3.9 x 3.3 cm. This lesion has increased from 2.1 to 2.8 cm. Hospitalist service was called for admission. PAST MEDICAL HISTORY: 1. Alzheimer's dementia. 2. Hypertension. 3. Asthma. 4. Diastolic heart failure. 5. Primary hyperparathyroidism. 6. Iron deficiency anemia (RANDOLPH). 7. Hyperplastic polyp. 8. Vitamin D deficiency. 9. Gastritis. 10. Pseudogout. 11. Cervical radiculopathy. 12. Cystocele. 13. Stress incontinence. 14. Fatty liver. Hepatitis panel was negative 2013. 15. Type 2 diabetes. 16. Chronic kidney disease stage III. Echocardiogram 2013 mild left ventricular hypertrophy (LVH) with preserved left ventricular (LV) systolic function, grade 1 diastolic dysfunction. Mild aortic mitral stenosis. Ejection fraction 60-65%. MRI of the cervical spine shows cervical spondylosis C3-C4, most significant C6-C7 with minimal spinal cord compression. CT chest showed small nodular densities. CT chest with intravenous (IV) contrast, liver, lung nodule, multiple stable subcentimeter pleural base nodules , unchanged from September. Possible atypical pneumonia in the right lobe of the liver. PAST SURGICAL HISTORY: 1. Total hysterectomy. 2. Right arm carpal tunnel release. ALLERGIES: To SULFA, NORVASC, AZITHROMYCIN, MAXZIDE, CEPHALEXIN, NIACIN, ULTRACET, OMEPRAZOLE. HOME MEDICATIONS: Per RN list FAMILY HISTORY: Mother, father , noncontributory due to age. SOCIAL HISTORY: Lives with who is primary caregiver and healthcare proxy. Denies any alcohol, recreational drug use or smoking history. REVIEW OF SYSTEMS: Obtained from the . Patient is demented, unable to answer questions appropriately. PHYSICAL EXAMINATION: VITAL SIGNS: Temperature 98.9, pulse 82, respiratory rate 20, blood pressure 126/86, 95% on room air. GENERAL: Awake, alert, oriented to person only, unable to answer questions. She follows commands. She is awake, has conversations with her . Able to recognize him. HEENT: Pupils are round and reactive. Extraocular muscles are intact. Normocephalic, atraumatic. Dry mucous membranes. Face is symmetric. Tongue is midline. No cervical lymphadenopathy or thyromegaly. LUNGS: Clear to auscultation. No wheezing, rales or rhonchi. ABDOMEN: Soft, nontender, nondistended. Positive bowel sounds times four quadrants. EXTREMITIES: No cyanosis or clubbing. NEUROLOGIC: AAO x 1 to person only. no facial asymmetry, no facial droop. speaks fluently. motor 5/5 bilateral upper extremities, motor 4/5 lower extremities no sensory disturbance. LABORATORY DATA: White count 15.4, hemoglobin 13, hematocrit 39, platelet count 313. Sodium 133, potassium 4.4, chloride 99, bicarbonate 18, BUN 25, creatinine 1.47, glucose 343, lactic acid 8. Previous A1c on 06/05/2016 was 7.5. ASSESSMENT AND PLAN: 81-year-old female lives at home with dementia, hypertension, asthma, diastolic heart failure, primary hyperparathyroidism, hyperplastic polyp, vitamin D deficiency, gastritis, pseudogout, cervical radiculopathy, cystocele, stress incontinence, fatty liver, hepatitis negative, diastolic heart failure, ejection fraction (EF) 60-65%, minimal spinal cord compression at C3-C4, C6-C7, presents to the emergency room with lower extremity weakness and confusion. No fever or chills at home. No headaches or photophobia. No neck rigidity, pain. Patient is admitted as an inpatient for two midnights assigned to Dr. Adri Jorge, [facility], patient's primary care provider is Imelda Pope, for the following issues: 1. Altered mental status on baseline chronic dementia. According to the , patient has had lower extremity weakness was much more confused today and has had decrease in oral intake. Evaluation of confusion has been positive for lactic acid, acute on chronic renal failure, leukocytosis which could be reactive and persistent hyperglycemia secondary to type 2 diabetes and persistent elevation of amino transferases. Patient has a known history of liver abnormality, but has increased in size. would like to have this looked at at a later time. He is refusing for a biopsy at this time. Will check liver profile, ANDI, CA19-9, carcinoembryonic antigen (CEA) and alpha fetoprotein. For the altered mental status, urinalysis is negative. Chest x-ray shows no acute infiltrate despite lactic acidosis, which will treat with intravenous (IV) fluids. There appears to be no other signs of infection. Due to confusion and increased white count, I would strongly recommend a lumbar puncture in the morning for which the can provide the consent. 2. Lower extremity weakness. Will obtain MRI of the cervical and thoracic spine in the morning. Physical therapy, fall precautions. Ambulation with assistance at all times. 3. Diabetes. Put on sliding scale, Levemir insulin 5 units nightly. 4. Acute on chronic renal failure. Trial of IV fluids. Avoid nephrotoxins. Renally dose all medications. 5. Hypertension. Currently normotensive. Continue on bisoprolol with holding parameters. Hold patient's ramipril due to acute on chronic renal failure. 6. Dementia. Continue on donepezil. 7. Iron deficiency. Continue on ferrous sulfate. 8. Allergic rhinitis. Continue on fexofenadine. 9. Recent urinary tract infection (UTI) with negative urinalysis. Complete nitrofurantoin. 10. Hypercholesterolemia. On pravastatin. 11. Chronic kidney disease. 12. Deep venous thrombosis (DVT) prophylaxis subcutaneous heparin. Patient will be signed out to [facility] Physician Dr. Parks at 0700 12/23/16. [facility]
[2016-12-23] MEDS: ACETAMINOPHEN TAB 650MG DOSE (2X325MG) PO PRN ×2 (03:23→19:45)
[2016-12-23] MEDS: MONTELUKAST 10 MG TAB PO SCH ×2 (03:23→18:22)
[2016-12-23] MEDS: PRAVASTATIN 20 MG TAB PO SCH ×2 (03:24→18:22)
[2016-12-23] MEDS: LEVEMIR (INSULIN DETEMIR) 1 UNITS/0.01ML SC SCH ×2 (03:25→19:45)
[2016-12-23] MEDS: RAMIPRIL 5 MG CAP PO SCH ×2 (03:30→18:24)
[2016-12-23 06:00] VITALS: BP 110/68
[2016-12-23 07:16] LABS: BASO # 0.1 10^3/uL (0.0-0.2); BASO % 0.7 % (0.0-1.0); EOS # 0.1 10^3/uL (0.0-0.50); IMMATURE GRANULOCYTE % 0.4 % (0-0); LYMPH # 0.8 10^3/uL (1.5-4.5); LYMPH % 7.7 % (24.0-44.0); MEAN CORPUSCULAR HEMOGLOBIN 34.4 pg (27.0-33.0); MEAN CORPUSCULAR HGB CONC 33.1 g/dl (32.0-36.5); MEAN CORPUSCULAR VOLUME 104.1 fl (80.0-96.0); MONO # 1.1 10^3/uL (0.0-0.8); MONO % 10.4 % (0.0-5.0); NEUTROPHILS # 8.3 10^3/uL (1.8-7.7); NEUTROPHILS % 79.8 % (36.0-66.0); PLATELET COUNT, AUTOMATED 307 10^3/uL (150-450); RED CELL DISTRIBUTION WIDTH 13.6 % (11.5-14.5); WHITE BLOOD COUNT 10.4 10^3/uL (4.0-10.0)
--- NOTE | 2016-12-23 07:29 | REP ---
Portable chest, 08:24 p.m., single AP view, patient sitting: Comparison 08/08/2016. Lung stack are clear. Cardiac size is enlarged, unchanged. The luis, mediastinum, and bony thorax are unremarkable and unchanged. Impression: Cardiomegaly. No interval change. Signed by Omar Ashby MD 12/23/2016 07:19 A
[2016-12-23 07:46] LABS: ANION GAP 10 MEQ/L (8-16); BLOOD UREA NITROGEN 25 MG/DL (7-18); CALCIUM LEVEL 9.1 MG/DL (8.8-10.2); CARBON DIOXIDE LEVEL 25 MEQ/L (21-32); CHLORIDE LEVEL 102 MEQ/L (98-107); GLOMERULAR FILTRATION RATE 41.7 (>32); GLUCOSE, FASTING 152 MG/DL (83-110); POTASSIUM SERUM 3.9 MEQ/L (3.5-5.1); SODIUM LEVEL 137 MEQ/L (136-145)
[2016-12-23] MEDS: HEPARIN SOD (PORCINE) 5000 UNITS/ML VIAL SC SCH ×3 (08:02→22:23)
[2016-12-23] MEDS: BISOPROLOL FUMARATE 5 MG TAB PO SCH (09:00)
--- NOTE | 2016-12-23 09:16 | ECGEPIP ---
Stationary ECG Study [facility] - ED Test Date: 2016-12-22 Pat Name: CHRISTO FAULKNER Department: Room: [place] [address] Gender: F Frothing Machine Operator: EstebanB: [id number] Requested By: ARTURO Dotson Order Number: [id number] Reading MD: Mana Lyon Measurements Intervals [place] Rate: 97 P: 23 WA: 185 QRS: 44 QRSD: 68 T: 73 QT: 332 QTc: 422 Interpretive Statements SINUS RHYTHM NONSPECIFIC T-WAVE ABNORMALITY SIMILAR 02/25/16 Electronically Signed On 12-23-2016 9:16:35 EST by Mana Lyon
[2016-12-23] MEDS: MULTIVITAMINS/MINERALS THERAP 1 TAB PO SCH (10:06)
[2016-12-23] MEDS: FEXOFENADINE 60 MG TAB PO SCH (10:06)
[2016-12-23] MEDS: FERROUS SULFATE 325MG TAB PO SCH (10:07)
[2016-12-23] MEDS: glipiZIDE *XL* 2.5MG TABLET PO SCH (10:07)
[2016-12-23 10:26] LABS: CARCINOEMBRYONIC ANTIGEN 1.2 NG/ML (<2.5)
[2016-12-23 10:54] LABS: CA 125 12.3 U/ML (<30.2)
[2016-12-23] MEDS: NS 1,000 ML IV SCH ×2 (11:15→19:46)
[2016-12-23] MEDS: FLUCONAZOLE 100 MG in APPROPRIATE DILUENT 1 EA IV SCH (13:42)
[2016-12-23 14:00] VITALS: BP 146/75
--- NOTE | 2016-12-23 17:13 | IPNPDOC ---
Text Note Date of Service The patient was seen on 12/23/16. NOTE Subjective: Patient is a 81-year-old female with a PMHx of Alzheimer's dementia, hypertension, diastolic heart failure, diabetes mellitus type 2, Chronic kidney disease stage III, asthma, primary hyperparathyroidism, iron deficiency anemia, vitamin D deficiency, Hyperplastic polyp, Pseudogout, Cervical radiculopathy, Cystocele, fatty liver disease. She presented to the ER found to be confused. Was admitted for acute metabolic encephalopathy and dehydration. Infectious source could not be found. Imaging revealed increase in liver mass size but as per patient and , didn't no biopsy was consented for until they discuss with their primary. Patient is currently DNR and DNI. Patient was seen and examined at the bedside. Currently noted to have improvement in her mental status, but still confused. Noted to have vaginal discomfort. Objective: Vitals (See below) General: Lying in bed, no acute distress, comfortable, Awake and alert HEENT: NC, AT CVS: RRR, +S1S2 Lungs: Fair air entry b/l, -w/r/r Abdomen: Soft, ND, NT, Extremities: - Edema, - Calf tenderness Assessment and plan: Acute metabolic encephalopathy - likely 2/2 dehydration, possibly 2/2 infectious etiology - 2/2 UTI, yeast infection, possibly 2/2 worsening dementia - Noted to have poor oral intake - Clinically has improvement - WBC improved, will trend CRP - UA negative, however recent UTI on abx as outpatient, CXR negative - CT abdomen/pelvis 12/22: increased hepatic mass - currently does not want to pursue biopsy - CT head 12/22: No acute hemorrhage or infarct - No focal deficits noted - c/w IV fluid hydration and nitrofurantoin Leukocytosis - possibly 2/2 reactive process, possibly 2/2 infectious - Remains afebrile - Improved - Will trend CRP - Currently off antibiotics Hepatic mass - etiology unclear - Cancer markers (ANDI, CA19-9, CEA, AFP) sent - Currently are not pursuing biopsy, as per family Vaginal discomfort - likely 2/2 yeast infection - Started Diflucan Lower extremity weakness - possibly 2/2 decompensated state - Continue physical therapy DM2 - c/w ISS and Levemir 5 units Acute on chronic renal disease - Cr noted to have improved HTN - BP improved - c/w Bisoprolol - Ramipril on hold Dementia - c/w donepezil RANDOLPH - c/w ferrous sulfate Allergic rhinitis - c/w fexofenadine Recent UTI - Negative Urinalysis - Continue nitrofurantoin DLP - c/w pravastatin DVT prophylaxis - c/w heparin VS,Fishbone, I+O VS, Fishbone, I+O Laboratory Tests 12/22/16 20:43 Red Blood Count 3.81 L, Mean Corpuscular Volume 104.2 H, Mean Corpuscular Hemoglobin 34.6 H, Mean Corpuscular Hemoglobin Concent 33.2, Red Cell Distribution Width 13.3, Neutrophils (%) (Auto) 91.8 H, Lymphocytes (%) (Auto) 1.8 L, Monocytes (%) (Auto) 5.3 H, Eosinophils (%) (Auto) 0.1, Basophils (%) ( Auto) 0.3, Neutrophils # (Auto) 14.1 H, Lymphocytes # (Auto) 0.3 L, Monocytes # (Auto) 0.8, Eosinophils # (Auto) 0.0, Basophils # (Auto) 0.1 12/23/16 06:45 Red Blood Count 3.43 L, Mean Corpuscular Volume 104.1 H, Mean Corpuscular Hemoglobin 34.4 H, Mean Corpuscular Hemoglobin Concent 33.1, Red Cell Distribution Width 13.6, Neutrophils (%) (Auto) 79.8 H, Lymphocytes (%) (Auto) 7.7 L, Monocytes (%) (Auto) 10.4 H, Eosinophils (%) (Auto) 1.0, Basophils (%) ( Auto) 0.7, Neutrophils # (Auto) 8.3 H, Lymphocytes # (Auto) 0.8 L, Monocytes # ( Auto) 1.1 H, Eosinophils # (Auto) 0.1, Basophils # (Auto) 0.1, Calcium Level 9.1 , Total Creatine Kinase 39 Vital Signs Date Time Temp Pulse Resp B/P (MAP) Pulse Ox O2 Delivery O2 Flow Rate FiO2 12/23/16 14:00 99.2 83 18 146/75 (98) 93 Room Air I&O- Last 24 Hours up to 6 AM 12/24/16 06:00 Intake Total 360 ml Balance 360 ml RESHMA GANDARA MD Dec 23, 2016 17:13
[2016-12-23] MEDS: NITROFURANTOIN (MACROBID) 100 MG CAP PO SCH (19:44)
[2016-12-23] MEDS: DONEPEZIL 5 MG TAB PO SCH (19:44)
[2016-12-23 22:00] VITALS: BP 138/72
[2016-12-24] MEDS: HEPARIN SOD (PORCINE) 5000 UNITS/ML VIAL SC SCH ×3 (05:17→22:27)
[2016-12-24 06:30] VITALS: BP 135/66
[2016-12-24 07:10] LABS: BASO # 0.1 10^3/uL (0.0-0.2); BASO % 0.5 % (0.0-1.0); EOS # 0.2 10^3/uL (0.0-0.50); EOS % 2.2 % (0.0-3.0); IMMATURE GRANULOCYTE % 0.4 % (0-0); LYMPH # 0.8 10^3/uL (1.5-4.5); MEAN CORPUSCULAR HEMOGLOBIN 35.2 pg (27.0-33.0); MEAN CORPUSCULAR HGB CONC 33.6 g/dl (32.0-36.5); MEAN CORPUSCULAR VOLUME 104.7 fl (80.0-96.0); MONO # 1.1 10^3/uL (0.0-0.8); MONO % 11.8 % (0.0-5.0); NEUTROPHILS % 76.1 % (36.0-66.0); PLATELET COUNT, AUTOMATED 277 10^3/uL (150-450); RED CELL DISTRIBUTION WIDTH 13.5 % (11.5-14.5); WHITE BLOOD COUNT 9.1 10^3/uL (4.0-10.0)
[2016-12-24 07:39] LABS: ANION GAP 8 MEQ/L (8-16); BLOOD UREA NITROGEN 16 MG/DL (7-18); CALCIUM LEVEL 8.7 MG/DL (8.8-10.2); CARBON DIOXIDE LEVEL 23 MEQ/L (21-32); CHLORIDE LEVEL 108 MEQ/L (98-107); CREATININE FOR GFR 0.94 MG/DL (0.55-1.02); GLOMERULAR FILTRATION RATE > 60.0 (>32); GLUCOSE, FASTING 169 MG/DL (83-110); POTASSIUM SERUM 4.2 MEQ/L (3.5-5.1); SODIUM LEVEL 139 MEQ/L (136-145)
[2016-12-24] MEDS: HumaLOG INSULIN (NovoLOG) PER UNIT SC SCH ×4 (08:13→20:06)
[2016-12-24] MEDS: FEXOFENADINE 60 MG TAB PO SCH (08:13)
[2016-12-24] MEDS: glipiZIDE *XL* 2.5MG TABLET PO SCH (08:13)
[2016-12-24] MEDS: BISOPROLOL FUMARATE 5 MG TAB PO SCH (08:14)
[2016-12-24] MEDS: MULTIVITAMINS/MINERALS THERAP 1 TAB PO SCH (08:14)
[2016-12-24] MEDS: FERROUS SULFATE 325MG TAB PO SCH (08:14)
[2016-12-24 10:59] LABS: VITAMIN B12 LEVEL 334 PG/ML (247-911)
[2016-12-24 11:00] LABS: FOLATE 17.5 NG/ML (>5.4)
[2016-12-24] MEDS: NITROFURANTOIN (MACROBID) 100 MG CAP PO SCH ×2 (11:44→20:06)
[2016-12-24] MEDS: FLUCONAZOLE 100 MG in APPROPRIATE DILUENT 1 EA IV SCH (13:54)
[2016-12-24 14:00] VITALS: BP 150/62
--- NOTE | 2016-12-24 14:15 | IPNPDOC ---
Text Note Date of Service The patient was seen on 12/24/16. NOTE Subjective: Patient is a 81-year-old female with a PMHx of Alzheimer's dementia, hypertension, diastolic heart failure, diabetes mellitus type 2, Chronic kidney disease stage III, asthma, primary hyperparathyroidism, iron deficiency anemia, vitamin D deficiency, Hyperplastic polyp, Pseudogout, Cervical radiculopathy, Cystocele, fatty liver disease. She presented to the ER found to be confused. Was admitted for acute metabolic encephalopathy and dehydration. Infectious source could not be found. Imaging revealed increase in liver mass size but as per patient and , didn't no biopsy was consented for until they discuss with their primary. Patient is currently DNR and DNI. Patient was seen and examined at the bedside. Patient is able to remember details from yesterday. She was able to recall our conversation. She denies any vaginal discomfort this morning. Objective: Vitals (See below) General: Lying in bed, no acute distress, comfortable, Awake and alert HEENT: NC, AT CVS: RRR, +S1S2 Lungs: Fair air entry b/l, -w/r/r Abdomen: Soft, ND, NT, Extremities: - Edema, - Calf tenderness Assessment and plan: Acute metabolic encephalopathy - likely 2/2 dehydration, possibly 2/2 infectious etiology - 2/2 UTI, yeast infection, possibly 2/2 worsening dementia - Noted to have poor oral intake - Clinically has improvement, mental status has continued to improved - No focal deficits noted - WBC tending down, CRP trending down - UA negative, however recent UTI on abx as outpatient, CXR negative - CT abdomen/pelvis 12/22: increased hepatic mass - currently does not want to pursue biopsy - CT head 12/22: No acute hemorrhage or infarct - c/w nitrofurantoin; Will stop IV fluid hydration s/p Leukocytosis - possibly 2/2 reactive process, possibly 2/2 infectious - Remains afebrile - Improved Hepatic mass - etiology unclear - Cancer markers (ANDI, CA19-9, CEA, AFP) sent - Currently are not pursuing biopsy, as per family - Patient and family will discuss with their primary care provider and workup outside the hospital Vaginal discomfort - likely 2/2 yeast infection - c/w Diflucan (Day #2) Lower extremity weakness - possibly 2/2 decompensated state - c/w physical therapy DM2 - c/w ISS and Levemir 5 units Acute on chronic renal disease - Cr baseline of 1-1.1 - Cr noted to have improved from admission HTN - BP improved - c/w Bisoprolol - Will restart Ramipril today Dementia - c/w Donepezil RANDOLPH - c/w Ferrous sulfate Allergic rhinitis - c/w Fexofenadine Recent UTI - Negative Urinalysis - Continue Nitrofurantoin DLP - c/w Pravastatin DVT prophylaxis - c/w Heparin VS,Fishbone, I+O VS, Fishbone, I+O Laboratory Tests 12/24/16 06:52 Red Blood Count 3.18 L, Mean Corpuscular Volume 104.7 H, Mean Corpuscular Hemoglobin 35.2 H, Mean Corpuscular Hemoglobin Concent 33.6, Red Cell Distribution Width 13.5, Neutrophils (%) (Auto) 76.1 H, Lymphocytes (%) (Auto) 9.0 L, Monocytes (%) (Auto) 11.8 H, Eosinophils (%) (Auto) 2.2, Basophils (%) ( Auto) 0.5, Neutrophils # (Auto) 7.0, Lymphocytes # (Auto) 0.8 L, Monocytes # ( Auto) 1.1 H, Eosinophils # (Auto) 0.2, Basophils # (Auto) 0.1, Calcium Level 8.7 L Vital Signs Date Time Temp Pulse Resp B/P (MAP) Pulse Ox O2 Delivery O2 Flow Rate FiO2 12/24/16 08:14 106 173/88 12/24/16 06:30 98.3 18 98 Room Air RESHMA GANDARA MD Dec 24, 2016 14:14
[2016-12-24] MEDS: MONTELUKAST 10 MG TAB PO SCH (18:11)
[2016-12-24] MEDS: PRAVASTATIN 20 MG TAB PO SCH (18:11)
[2016-12-24] MEDS: RAMIPRIL 5 MG CAP PO SCH (18:12)
[2016-12-24 20:00] VITALS: BP 159/82
[2016-12-24] MEDS: DONEPEZIL 5 MG TAB PO SCH (20:06)
[2016-12-24] MEDS: LEVEMIR (INSULIN DETEMIR) 1 UNITS/0.01ML SC SCH (20:06)
[2016-12-24] MEDS: ACETAMINOPHEN TAB 650MG DOSE (2X325MG) PO PRN (20:06)
[2016-12-25 00:06] LABS: SJOGREN'S ANTI SS-A <0.2 AI (0.0-0.9); SJOGREN'S ANTI SS-B <0.2 AI (0.0-0.9)
[2016-12-25] MEDS: ACETAMINOPHEN TAB 650MG DOSE (2X325MG) PO PRN ×2 (02:51→09:04)
[2016-12-25 06:00] VITALS: BP 170/80
[2016-12-25] MEDS: HEPARIN SOD (PORCINE) 5000 UNITS/ML VIAL SC SCH ×3 (06:21→21:24)
[2016-12-25 07:09] LABS: BASO % 0.5 % (0.0-1.0); EOS # 0.1 10^3/uL (0.0-0.50); EOS % 1.6 % (0.0-3.0); IMMATURE GRANULOCYTE % 0.4 % (0-0); LYMPH # 1.3 10^3/uL (1.5-4.5); LYMPH % 15.5 % (24.0-44.0); MEAN CORPUSCULAR HEMOGLOBIN 34.4 pg (27.0-33.0); MEAN CORPUSCULAR HGB CONC 32.7 g/dl (32.0-36.5); MONO % 12.8 % (0.0-5.0); NEUTROPHILS # 5.6 10^3/uL (1.8-7.7); NEUTROPHILS % 69.2 % (36.0-66.0); PLATELET COUNT, AUTOMATED 273 10^3/uL (150-450); RED CELL DISTRIBUTION WIDTH 13.7 % (11.5-14.5); WHITE BLOOD COUNT 8.1 10^3/uL (4.0-10.0)
[2016-12-25 07:58] LABS: ANION GAP 9 MEQ/L (8-16); BLOOD UREA NITROGEN 13 MG/DL (7-18); CALCIUM LEVEL 8.5 MG/DL (8.8-10.2); CARBON DIOXIDE LEVEL 21 MEQ/L (21-32); CHLORIDE LEVEL 110 MEQ/L (98-107); CREATININE FOR GFR 0.87 MG/DL (0.55-1.02); GLOMERULAR FILTRATION RATE > 60.0 (>32); GLUCOSE, FASTING 160 MG/DL (83-110); POTASSIUM SERUM 4.1 MEQ/L (3.5-5.1); SODIUM LEVEL 140 MEQ/L (136-145)
[2016-12-25] MEDS: FEXOFENADINE 60 MG TAB PO SCH (09:04)
[2016-12-25] MEDS: BISOPROLOL FUMARATE 5 MG TAB PO SCH (09:04)
[2016-12-25] MEDS: MULTIVITAMINS/MINERALS THERAP 1 TAB PO SCH (09:04)
[2016-12-25] MEDS: FERROUS SULFATE 325MG TAB PO SCH (09:04)
[2016-12-25] MEDS: NITROFURANTOIN (MACROBID) 100 MG CAP PO SCH ×2 (09:05→21:23)
[2016-12-25] MEDS: HumaLOG INSULIN (NovoLOG) PER UNIT SC SCH ×4 (09:05→20:49)
[2016-12-25] MEDS: glipiZIDE *XL* 2.5MG TABLET PO SCH (09:05)
--- NOTE | 2016-12-25 11:29 | IPNPDOC ---
Text Note Date of Service The patient was seen on 12/25/16. NOTE Subjective: Patient is a 81-year-old female with a PMHx of Alzheimer's dementia, hypertension, diastolic heart failure, diabetes mellitus type 2, Chronic kidney disease stage III, asthma, primary hyperparathyroidism, iron deficiency anemia, vitamin D deficiency, Hyperplastic polyp, Pseudogout, Cervical radiculopathy, Cystocele, fatty liver disease. She presented to the ER found to be confused. Was admitted for acute metabolic encephalopathy and dehydration. Infectious source could not be found. Imaging revealed increase in liver mass size but as per patient and , didn't no biopsy was consented for until they discuss with their primary. Patient is currently DNR and DNI. Patient was seen and examined at the bedside. Patient notes that she feels better, she denies any abdominal pain. Notes that her vaginal burning she experienced a few days ago has improved significantly. Nursing has advised me that she gets very sad when her leaves and calls out for him occasionally. Objective: Vitals (See below) General: Lying in bed, no acute distress, comfortable, Awake and alert HEENT: NC, AT CVS: RRR, +S1S2 Lungs: Fair air entry b/l, -w/r/r Abdomen: Soft, ND, NT, Extremities: - Edema, - Calf tenderness Assessment and plan: Acute metabolic encephalopathy - likely 2/2 dehydration, possibly 2/2 infectious etiology - 2/2 UTI, yeast infection, possibly 2/2 worsening dementia - Noted to have poor oral intake - Clinically has improvement, mental status has continued to improved - No focal deficits noted - WBC and CRP continue to improve - UA negative, however recent UTI on antibiotics as outpatient, CXR negative - CT abdomen/pelvis 12/22: increased hepatic mass - currently does not want to pursue biopsy - CT head 12/22: No acute hemorrhage or infarct - s/p IV fluid hydration - c/w nitrofurantoin Vaginal discomfort - likely 2/2 yeast infection - c/w Diflucan (Day #3) s/p Leukocytosis - possibly 2/2 reactive process, possibly 2/2 infectious - Febrile episode yesterday; will continue to monitor - Improved 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, less likely infectious - Cancer markers (ANDI, CA19-9, CEA, AFP) sent - Currently are not pursuing biopsy, as per family - Had discussion with about possibility of cancer, aware of risks and benefits of not getting a biopsy - Patient and family will discuss with their primary care provider and workup outside the hospital Lower extremity weakness - possibly 2/2 decompensated state - c/w physical therapy DM2 - c/w ISS and Levemir 5 units Acute on chronic renal disease - Cr baseline of 1-1.1 - Cr noted to have improved from admission HTN - BP elevated today - c/w Bisoprolol and Ramipril - Will increase dose of both medications today Dementia - c/w Donepezil RANDOLPH - c/w Ferrous sulfate Allergic rhinitis - c/w Fexofenadine Recent UTI - Negative Urinalysis - Continue Nitrofurantoin DLP - c/w Pravastatin DVT prophylaxis - c/w Heparin VS,Fishbone, I+O VS, Fishbone, I+O Laboratory Tests 12/25/16 06:49 Red Blood Count 3.20 L, Mean Corpuscular Volume 105.0 H, Mean Corpuscular Hemoglobin 34.4 H, Mean Corpuscular Hemoglobin Concent 32.7, Red Cell Distribution Width 13.7, Neutrophils (%) (Auto) 69.2 H, Lymphocytes (%) (Auto) 15.5 L, Monocytes (%) (Auto) 12.8 H, Eosinophils (%) (Auto) 1.6, Basophils (%) ( Auto) 0.5, Neutrophils # (Auto) 5.6, Lymphocytes # (Auto) 1.3 L, Monocytes # ( Auto) 1.0 H, Eosinophils # (Auto) 0.1, Basophils # (Auto) 0.0, Calcium Level 8.5 L Vital Signs Date Time Temp Pulse Resp B/P (MAP) Pulse Ox O2 Delivery O2 Flow Rate FiO2 12/25/16 09:04 80 170/80 12/25/16 06:00 98.8 16 95 Room Air I&O- Last 24 Hours up to 6 AM 12/26/16 06:00 Intake Total 240 ml Output Total 300 ml Balance -60 ml RESHMA GANDARA MD Dec 25, 2016 11:29
[2016-12-25] MEDS: FLUCONAZOLE 100 MG in APPROPRIATE DILUENT 1 EA IV SCH (13:50)
[2016-12-25 16:00] VITALS: BP 150/88
[2016-12-25] MEDS: MONTELUKAST 10 MG TAB PO SCH (17:02)
[2016-12-25] MEDS: RAMIPRIL 5 MG CAP PO SCH (17:02)
[2016-12-25] MEDS: PRAVASTATIN 20 MG TAB PO SCH (17:02)
[2016-12-25 20:51] VITALS: BP 164/82
[2016-12-25] MEDS: LEVEMIR (INSULIN DETEMIR) 1 UNITS/0.01ML SC SCH (21:00)
[2016-12-25] MEDS: ASPIRIN 81 MG ENTERIC TAB PO SCH (21:23)
[2016-12-25] MEDS: DONEPEZIL 5 MG TAB PO SCH (21:23)
[2016-12-26] MEDS: ACETAMINOPHEN TAB 650MG DOSE (2X325MG) PO PRN (00:40)
[2016-12-26] MEDS: HEPARIN SOD (PORCINE) 5000 UNITS/ML VIAL SC SCH ×3 (05:31→21:05)
[2016-12-26 06:00] VITALS: BP 177/87
[2016-12-26 06:28] LABS: BASO % 0.4 % (0.0-1.0); EOS # 0.2 10^3/uL (0.0-0.50); EOS % 2.3 % (0.0-3.0); IMMATURE GRANULOCYTE % 0.5 % (0-0); LYMPH # 1.7 10^3/uL (1.5-4.5); LYMPH % 17.2 % (24.0-44.0); MEAN CORPUSCULAR HGB CONC 33.5 g/dl (32.0-36.5); MEAN CORPUSCULAR VOLUME 104.2 fl (80.0-96.0); MONO # 1.4 10^3/uL (0.0-0.8); MONO % 14.3 % (0.0-5.0); NEUTROPHILS # 6.3 10^3/uL (1.8-7.7); NEUTROPHILS % 65.3 % (36.0-66.0); PLATELET COUNT, AUTOMATED 288 10^3/uL (150-450); RED CELL DISTRIBUTION WIDTH 13.6 % (11.5-14.5); WHITE BLOOD COUNT 9.6 10^3/uL (4.0-10.0)
[2016-12-26 06:30] VITALS: BP 172/86
[2016-12-26 06:48] LABS: ANION GAP 9 MEQ/L (8-16); BLOOD UREA NITROGEN 11 MG/DL (7-18); CALCIUM LEVEL 8.6 MG/DL (8.8-10.2); CARBON DIOXIDE LEVEL 21 MEQ/L (21-32); CHLORIDE LEVEL 109 MEQ/L (98-107); CREATININE FOR GFR 0.85 MG/DL (0.55-1.02); GLOMERULAR FILTRATION RATE > 60.0 (>32); GLUCOSE, FASTING 186 MG/DL (83-110); POTASSIUM SERUM 3.8 MEQ/L (3.5-5.1); SODIUM LEVEL 139 MEQ/L (136-145)
[2016-12-26] MEDS: HumaLOG INSULIN (NovoLOG) PER UNIT SC SCH ×4 (08:07→20:20)
[2016-12-26] MEDS: MULTIVITAMINS/MINERALS THERAP 1 TAB PO SCH (08:08)
[2016-12-26] MEDS: BISOPROLOL FUMARATE 10 MG TAB PO SCH (08:08)
[2016-12-26] MEDS: FLUCONAZOLE 100 MG TAB PO SCH (08:08)
[2016-12-26] MEDS: FEXOFENADINE 60 MG TAB PO SCH (08:08)
[2016-12-26] MEDS: FERROUS SULFATE 325MG TAB PO SCH (08:08)
[2016-12-26] MEDS: NITROFURANTOIN (MACROBID) 100 MG CAP PO SCH ×2 (08:08→21:04)
--- NOTE | 2016-12-26 10:56 | IPNPDOC ---
Text Note Date of Service The patient was seen on 12/26/16. NOTE Subjective: Patient is a 81-year-old female with a PMHx of Alzheimer's dementia, hypertension, diastolic heart failure, diabetes mellitus type 2, Chronic kidney disease stage III, asthma, primary hyperparathyroidism, iron deficiency anemia, vitamin D deficiency, Hyperplastic polyp, Pseudogout, Cervical radiculopathy, Cystocele, fatty liver disease. She presented to the ER found to be confused. Was admitted for acute metabolic encephalopathy and dehydration. Infectious source could not be found. Imaging revealed increase in liver mass size but as per patient and , didn't no biopsy was consented for until they discuss with their primary. Patient is currently DNR and DNI. Patient was seen and examined at the bedside. Patient was noted to have a low grade fever yesterday evening. However she denies any abdominal pain, dysuria or vaginal discomfort. She denies any cough Objective: Vitals (See below) General: Lying in bed, no acute distress, comfortable, Awake and alert HEENT: NC, AT CVS: RRR, +S1S2 Lungs: Fair air entry b/l, -w/r/r Abdomen: Soft, ND, NT, Extremities: - Edema, - Calf tenderness Assessment and plan: Acute metabolic encephalopathy - likely 2/2 dehydration, possibly 2/2 infectious etiology - 2/2 UTI, yeast infection, possibly 2/2 worsening dementia - Has had significant improvement in mental function, is aware of person and place - No focal deficits noted - WBC stable; CRP pending today - UA negative, however recent UTI on antibiotics as outpatient, CXR negative - CT abdomen/pelvis 12/22: increased hepatic mass - currently does not want to pursue biopsy - CT head 12/22: No acute hemorrhage or infarct - s/p IV fluid hydration - c/w Nitrofurantoin Vaginal discomfort - likely 2/2 yeast infection - c/w Diflucan (Day #4) s/p Leukocytosis - possibly 2/2 reactive process, possibly 2/2 infectious - Low grade fever episode yesterday; will continue to monitor - Improved 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, less likely infectious - Cancer markers (ANDI, CA19-9, CEA, AFP) sent - Currently are not pursuing biopsy, as per family - Had discussion with about possibility of cancer, aware of risks and benefits of not getting a biopsy - Patient and family will discuss with their primary care provider and workup outside the hospital Lower extremity weakness - possibly 2/2 decompensated state - c/w physical therapy DM2 - c/w ISS and Levemir 5 units Acute on chronic renal disease - Cr baseline of 1-1.1 - Cr noted to have improved from admission HTN - BP again elevated today - c/w Bisoprolol and Ramipril at increased doses; will continue to monitor for now Dementia - c/w Donepezil RANDOLPH - c/w Ferrous sulfate Allergic rhinitis - c/w Fexofenadine Recent UTI - Negative Urinalysis - Continue Nitrofurantoin DLP - c/w Pravastatin DVT prophylaxis - c/w Heparin Disposition: - Awaiting febrile episodes to subside - c/w Nitrofurantoin and Diflucan - c/w Physical therapy to determine disposition VSMac, I+O VSMac I+O Laboratory Tests 12/26/16 06:17 Red Blood Count 3.09 L, Mean Corpuscular Volume 104.2 H, Mean Corpuscular Hemoglobin 35.0 H, Mean Corpuscular Hemoglobin Concent 33.5, Red Cell Distribution Width 13.6, Neutrophils (%) (Auto) 65.3, Lymphocytes (%) (Auto) 17.2 L, Monocytes (%) (Auto) 14.3 H, Eosinophils (%) (Auto) 2.3, Basophils (%) ( Auto) 0.4, Neutrophils # (Auto) 6.3, Lymphocytes # (Auto) 1.7, Monocytes # (Auto ) 1.4 H, Eosinophils # (Auto) 0.2, Basophils # (Auto) 0.0, Calcium Level 8.6 L Vital Signs Date Time Temp Pulse Resp B/P (MAP) Pulse Ox O2 Delivery O2 Flow Rate FiO2 12/26/16 08:08 89 172/86 12/26/16 06:00 98.4 16 93 Room Air RESHMA GANDARA MD Dec 26, 2016 10:56
[2016-12-26 14:00] VITALS: BP 160/78
[2016-12-26] MEDS: PRAVASTATIN 20 MG TAB PO SCH (18:11)
[2016-12-26] MEDS: MONTELUKAST 10 MG TAB PO SCH (18:11)
[2016-12-26] MEDS: RAMIPRIL 5 MG CAP PO SCH (18:12)
[2016-12-26] MEDS: LEVEMIR (INSULIN DETEMIR) 1 UNITS/0.01ML SC SCH (21:00)
[2016-12-26] MEDS: ASPIRIN 81 MG ENTERIC TAB PO SCH (21:04)
[2016-12-26] MEDS: DONEPEZIL 5 MG TAB PO SCH (21:04)
[2016-12-26 22:00] VITALS: BP 150/88
[2016-12-27 06:00] VITALS: BP 156/75
[2016-12-27] MEDS: HEPARIN SOD (PORCINE) 5000 UNITS/ML VIAL SC SCH ×3 (06:06→22:00)
[2016-12-27 06:16] LABS: BASO # 0.1 10^3/uL (0.0-0.2); BASO % 0.7 % (0.0-1.0); EOS # 0.2 10^3/uL (0.0-0.50); EOS % 2.4 % (0.0-3.0); IMMATURE GRANULOCYTE % 0.8 % (0-0); LYMPH # 1.5 10^3/uL (1.5-4.5); LYMPH % 16.2 % (24.0-44.0); MEAN CORPUSCULAR HEMOGLOBIN 34.1 pg (27.0-33.0); MEAN CORPUSCULAR HGB CONC 33.3 g/dl (32.0-36.5); MEAN CORPUSCULAR VOLUME 102.3 fl (80.0-96.0); MONO # 1.3 10^3/uL (0.0-0.8); MONO % 14.4 % (0.0-5.0); NEUTROPHILS % 65.5 % (36.0-66.0); PLATELET COUNT, AUTOMATED 314 10^3/uL (150-450); RED CELL DISTRIBUTION WIDTH 13.6 % (11.5-14.5); WHITE BLOOD COUNT 9.2 10^3/uL (4.0-10.0)
[2016-12-27 06:33] LABS: ANION GAP 9 MEQ/L (8-16); BLOOD UREA NITROGEN 11 MG/DL (7-18); CALCIUM LEVEL 8.9 MG/DL (8.8-10.2); CARBON DIOXIDE LEVEL 19 MEQ/L (21-32); CHLORIDE LEVEL 108 MEQ/L (98-107); CREATININE FOR GFR 0.77 MG/DL (0.55-1.02); GLOMERULAR FILTRATION RATE > 60.0 (>32); GLUCOSE, FASTING 225 MG/DL (83-110); POTASSIUM SERUM 3.6 MEQ/L (3.5-5.1); SODIUM LEVEL 136 MEQ/L (136-145)
[2016-12-27] MEDS: NITROFURANTOIN (MACROBID) 100 MG CAP PO SCH ×2 (08:30→21:59)
[2016-12-27] MEDS: FERROUS SULFATE 325MG TAB PO SCH (08:30)
[2016-12-27] MEDS: BISOPROLOL FUMARATE 10 MG TAB PO SCH (08:30)
[2016-12-27] MEDS: FLUCONAZOLE 100 MG TAB PO SCH (08:31)
[2016-12-27] MEDS: HumaLOG INSULIN (NovoLOG) PER UNIT SC SCH ×4 (08:31→21:00)
[2016-12-27] MEDS: MULTIVITAMINS/MINERALS THERAP 1 TAB PO SCH (08:31)
[2016-12-27] MEDS: FEXOFENADINE 60 MG TAB PO SCH (08:31)
--- NOTE | 2016-12-27 11:29 | IPNPDOC ---
Text Note Date of Service The patient was seen on 12/27/16. NOTE Subjective: Patient is a 81-year-old female with a PMHx of Alzheimer's dementia, hypertension, diastolic heart failure, diabetes mellitus type 2, Chronic kidney disease stage III, asthma, primary hyperparathyroidism, iron deficiency anemia, vitamin D deficiency, Hyperplastic polyp, Pseudogout, Cervical radiculopathy, Cystocele, fatty liver disease. She presented to the ER found to be confused. Was admitted for acute metabolic encephalopathy and dehydration. Infectious source could not be found. Imaging revealed increase in liver mass size but as per patient and , didn't no biopsy was consented for until they discuss with their primary. Patient is currently DNR and DNI. Patient was seen and examined at the bedside. Patient has not had any more fever episodes over 24 hours. She is awake, alert and oriented. She denies any abdominal pain or dysuria. Objective: Vitals (See below) General: Lying in bed, no acute distress, comfortable, AAAOx3 HEENT: NC, AT CVS: RRR, +S1S2 Lungs: Fair air entry b/l, -w/r/r Abdomen: Soft, ND, NT, Extremities: - Edema, - Calf tenderness Assessment and plan: Acute metabolic encephalopathy - likely 2/2 dehydration, possibly 2/2 infectious etiology - 2/2 UTI, yeast infection, possibly 2/2 worsening dementia - AAOx3, No focal deficits noted - Recent history of UTI; was started on Nitrofurantoin outpatient and was continued here - WBC stable; CRP continue to trend down - UA negative, however recent UTI on antibiotics as outpatient, CXR negative - CT abdomen/pelvis 12/22: increased hepatic mass - currently does not want to pursue biopsy - CT head 12/22: No acute hemorrhage or infarct - s/p IV fluid hydration - c/w Nitrofurantoin (Day #7); will discontinue antibiotics today Vaginal discomfort - likely 2/2 yeast infection - c/w Diflucan (Day #5 of 7) s/p Leukocytosis - possibly 2/2 reactive process, possibly 2/2 infectious - s/p Febrile episodes - Improved 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, less likely infectious - Cancer markers CA19-9, CA125, CEA negative; AFP pending - ANDI positive - Currently are not pursuing biopsy, as per family - Had discussion with about possibility of cancer, aware of risks and benefits of not getting a biopsy - Patient and family will discuss with their primary care provider and workup outside the hospital Lower extremity weakness - possibly 2/2 decompensated state - c/w physical therapy DM2 - c/w ISS and Levemir 5 units Acute on chronic renal disease - Cr baseline of 1-1.1 - Cr noted to have improved from admission HTN - BP again elevated today - c/w Bisoprolol and Ramipril at increased doses; will continue to monitor for now Dementia - c/w Donepezil RANDOLPH - c/w Ferrous sulfate Allergic rhinitis - c/w Fexofenadine DLP - c/w Pravastatin DVT prophylaxis - c/w Heparin Disposition: - Will discontinue Nitrofurantoin today - c/w Diflucan - c/w PT; will likely need RW at home - awaiting PT clearance VS,Fishbone, I+O VS, Melindae, I+O Laboratory Tests 12/27/16 06:02 Red Blood Count 3.08 L, Mean Corpuscular Volume 102.3 H, Mean Corpuscular Hemoglobin 34.1 H, Mean Corpuscular Hemoglobin Concent 33.3, Red Cell Distribution Width 13.6, Neutrophils (%) (Auto) 65.5, Lymphocytes (%) (Auto) 16.2 L, Monocytes (%) (Auto) 14.4 H, Eosinophils (%) (Auto) 2.4, Basophils (%) ( Auto) 0.7, Neutrophils # (Auto) 6.0, Lymphocytes # (Auto) 1.5, Monocytes # (Auto ) 1.3 H, Eosinophils # (Auto) 0.2, Basophils # (Auto) 0.1, Calcium Level 8.9 Vital Signs Date Time Temp Pulse Resp B/P (MAP) Pulse Ox O2 Delivery O2 Flow Rate FiO2 12/27/16 09:00 Room Air 12/27/16 08:30 87 156/75 12/27/16 06:00 97.3 21 90 I&O- Last 24 Hours up to 6 AM 12/28/16 06:00 Intake Total 240 ml Balance 240 ml REHSMA GANDARA MD Dec 27, 2016 11:29
[2016-12-27 14:00] VITALS: BP 210/98
[2016-12-27 14:47] VITALS: BP 210/98
[2016-12-27] MEDS ORDERED: LORazepam 1 MG TAB PO ONE (15:00)
[2016-12-27 16:01] VITALS: BP 168/82
[2016-12-27] MEDS: RAMIPRIL 5 MG CAP PO SCH (17:36)
[2016-12-27] MEDS: MONTELUKAST 10 MG TAB PO SCH (17:36)
[2016-12-27] MEDS: PRAVASTATIN 20 MG TAB PO SCH (17:36)
[2016-12-27] MEDS: ASPIRIN 81 MG ENTERIC TAB PO SCH (21:59)
[2016-12-27] MEDS: DONEPEZIL 5 MG TAB PO SCH (21:59)
[2016-12-27] MEDS: CitaloPRAM (CeleXA) 10 MG TABLET PO SCH (21:59)
[2016-12-27 22:00] VITALS: BP 172/80
[2016-12-27] MEDS: LEVEMIR (INSULIN DETEMIR) 1 UNITS/0.01ML SC SCH (22:00)
[2016-12-27] MEDS: ACETAMINOPHEN TAB 650MG DOSE (2X325MG) PO PRN (22:03)
[2016-12-28] MEDS: HEPARIN SOD (PORCINE) 5000 UNITS/ML VIAL SC SCH ×3 (05:56→21:15)
[2016-12-28 06:00] VITALS: BP 172/98
[2016-12-28] MEDS ORDERED: ALPRAZolam 0.25 MG TAB PO PRN (07:15)
[2016-12-28] MEDS ORDERED: **hydrALAZINE** 10 MG TAB PO SCH (08:00)
[2016-12-28 09:15] LABS: BASO # 0.1 10^3/uL (0.0-0.2); BASO % 0.9 % (0.0-1.0); EOS # 0.5 10^3/uL (0.0-0.50); EOS % 6.1 % (0.0-3.0); IMMATURE GRANULOCYTE % 1.3 % (0-0); LYMPH # 1.6 10^3/uL (1.5-4.5); LYMPH % 19.8 % (24.0-44.0); MEAN CORPUSCULAR HEMOGLOBIN 34.6 pg (27.0-33.0); MEAN CORPUSCULAR HGB CONC 33.9 g/dl (32.0-36.5); MEAN CORPUSCULAR VOLUME 102.3 fl (80.0-96.0); MONO % 13.2 % (0.0-5.0); NEUTROPHILS # 4.6 10^3/uL (1.8-7.7); NEUTROPHILS % 58.7 % (36.0-66.0); PLATELET COUNT, AUTOMATED 362 10^3/uL (150-450); RED CELL DISTRIBUTION WIDTH 13.8 % (11.5-14.5); WHITE BLOOD COUNT 7.8 10^3/uL (4.0-10.0)
--- NOTE | 2016-12-28 09:29 | IPNPDOC ---
Text Note Date of Service The patient was seen on 12/28/16. NOTE Subjective: Patient is a 81-year-old female with a PMHx of Alzheimer's dementia, hypertension, diastolic heart failure, diabetes mellitus type 2, Chronic kidney disease stage III, asthma, primary hyperparathyroidism, iron deficiency anemia, vitamin D deficiency, Hyperplastic polyp, Pseudogout, Cervical radiculopathy, Cystocele, fatty liver disease. She presented to the ER found to be confused. Was admitted for acute metabolic encephalopathy and dehydration. Infectious source could not be found. Imaging revealed increase in liver mass size but as per patient and , didn't no biopsy was consented for until they discuss with their primary. Patient is currently DNR and DNI. Patient was seen and examined at the bedside. Patient appears anxious, she is oriented and denies any pain or problems. She continues to work with physical therapy. Objective: Vitals (See below) General: Lying in bed, no acute distress, comfortable, AAAOx3 HEENT: NC, AT CVS: RRR, +S1S2 Lungs: Fair air entry b/l, -w/r/r Abdomen: Soft, ND, NT, Extremities: - Edema, - Calf tenderness Assessment and plan: s/p Acute metabolic encephalopathy - likely 2/2 dehydration, possibly 2/2 infectious etiology - 2/2 UTI, yeast infection, possibly 2/2 worsening dementia - AAOx3, No focal deficits noted - Recent history of UTI; was started on Nitrofurantoin outpatient and was continued here - CT abdomen/pelvis 12/22: increased hepatic mass - currently does not want to pursue biopsy - CT head 12/22: No acute hemorrhage or infarct - s/p IV fluid hydration s/p Urinary tract infection (as an outpatient) - s/p Leukocytosis; CRP continue to trend down - UA negative, however recent UTI on antibiotics as outpatient, CXR negative - s/p Nitrofurantoin (Total of 7 days) s/p Vaginal discomfort - likely 2/2 yeast infection - c/w Diflucan (Day #6 of 7) s/p Leukocytosis - possibly 2/2 reactive process, possibly 2/2 infectious - s/p Febrile episodes - Improved 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, less likely infectious - Cancer markers CA19-9, CA125, CEA negative; AFP pending - ANDI positive - Currently are not pursuing biopsy, as per family - Had discussion with about possibility of cancer, aware of risks and benefits of not getting a biopsy - Patient and family will discuss with their primary care provider and workup outside the hospital s/p Lower extremity weakness - possibly 2/2 decompensated state - c/w physical therapy; recommend home with services - not cleared currently DM2 - c/w ISS and Levemir 5 units Acute on chronic renal disease - Cr baseline of 1-1.1 - Cr noted to have improved from admission Generalized Anxiety - Started Citalopram on 12/27 PM - Started Xanax PRN HTN - BP remains elevated; possibly component of anxiety - c/w Bisoprolol, Ramipril - Added Hydralazine - Added anxiety control medications Dementia - c/w Donepezil RANDOLPH - c/w Ferrous sulfate Allergic rhinitis - c/w Fexofenadine DLP - c/w Pravastatin DVT prophylaxis - c/w Heparin Disposition: - s/p Nitrofurantoin; will d/c Diflucan on 12/29 - Control BP / Anxiety - c/w PT; will likely need RW at home - awaiting PT clearance VS,Mac, I+O VS, Mac, I+O Laboratory Tests 12/28/16 09:08 Red Blood Count 3.09 L, Mean Corpuscular Volume 102.3 H, Mean Corpuscular Hemoglobin 34.6 H, Mean Corpuscular Hemoglobin Concent 33.9, Red Cell Distribution Width 13.8, Neutrophils (%) (Auto) 58.7, Lymphocytes (%) (Auto) 19.8 L, Monocytes (%) (Auto) 13.2 H, Eosinophils (%) (Auto) 6.1 H, Basophils (% ) (Auto) 0.9, Neutrophils # (Auto) 4.6, Lymphocytes # (Auto) 1.6, Monocytes # ( Auto) 1.0 H, Eosinophils # (Auto) 0.5, Basophils # (Auto) 0.1 Vital Signs Date Time Temp Pulse Resp B/P (MAP) Pulse Ox O2 Delivery O2 Flow Rate FiO2 12/28/16 06:00 97.9 79 22 172/98 (122) 97 Room Air RESHMA GANDARA MD Dec 28, 2016 09:29
[2016-12-28] MEDS: HumaLOG INSULIN (NovoLOG) PER UNIT SC SCH ×4 (09:47→21:16)
[2016-12-28] MEDS: BISOPROLOL FUMARATE 10 MG TAB PO SCH (09:47)
[2016-12-28] MEDS: NITROFURANTOIN (MACROBID) 100 MG CAP PO SCH ×2 (09:48→21:14)
[2016-12-28] MEDS: MULTIVITAMINS/MINERALS THERAP 1 TAB PO SCH (09:48)
[2016-12-28] MEDS: FLUCONAZOLE 100 MG TAB PO SCH (09:48)
[2016-12-28] MEDS: FERROUS SULFATE 325MG TAB PO SCH (09:48)
[2016-12-28 09:49] LABS: ALBUMIN 2.8 GM/DL (3.2-5.2); ALKALINE PHOSPHATASE 79 U/L (45-117); ALT/SGPT 62 U/L (12-78); ANION GAP 9 MEQ/L (8-16); AST/SGOT 73 U/L (7-37); BILIRUBIN,TOTAL 0.5 MG/DL (0.2-1.0); BLOOD UREA NITROGEN 11 MG/DL (7-18); CALCIUM LEVEL 8.4 MG/DL (8.8-10.2); CARBON DIOXIDE LEVEL 21 MEQ/L (21-32); CHLORIDE LEVEL 107 MEQ/L (98-107); CREATININE FOR GFR 0.83 MG/DL (0.55-1.02); GLOMERULAR FILTRATION RATE > 60.0 (>32); GLUCOSE, FASTING 290 MG/DL (83-110); MAGNESIUM LEVEL 1.9 MG/DL (1.8-2.4); POTASSIUM SERUM 3.8 MEQ/L (3.5-5.1); SODIUM LEVEL 137 MEQ/L (136-145); TOTAL PROTEIN 6.3 GM/DL (6.4-8.2)
[2016-12-28 12:30] VITALS: BP 130/73
[2016-12-28 14:00] VITALS: BP 182/78
[2016-12-28] MEDS: **hydrALAZINE** 10 MG TAB PO SCH ×2 (15:42→21:15)
[2016-12-28] MEDS: PRAVASTATIN 20 MG TAB PO SCH (17:44)
[2016-12-28] MEDS: MONTELUKAST 10 MG TAB PO SCH (17:44)
[2016-12-28] MEDS: RAMIPRIL 5 MG CAP PO SCH (17:44)
[2016-12-28 19:04] VITALS: BP 160/79
[2016-12-28] MEDS: LEVEMIR (INSULIN DETEMIR) 1 UNITS/0.01ML SC SCH (21:00)
[2016-12-28] MEDS: ASPIRIN 81 MG ENTERIC TAB PO SCH (21:14)
[2016-12-28] MEDS: ALPRAZolam 0.25 MG TAB PO PRN (21:14)
[2016-12-28] MEDS: CitaloPRAM (CeleXA) 10 MG TABLET PO SCH (21:14)
[2016-12-28] MEDS: DONEPEZIL 5 MG TAB PO SCH (21:14)
[2016-12-28 22:00] VITALS: BP 182/80
[2016-12-28 22:30] VITALS: BP 170/88
[2016-12-29 02:00] VITALS: BP 160/108
[2016-12-29] MEDS: ALPRAZolam 0.25 MG TAB PO PRN ×2 (03:25→21:44)
[2016-12-29 06:00] VITALS: BP 178/88
[2016-12-29 06:05] LABS: BASO # 0.1 10^3/uL (0.0-0.2); BASO % 0.8 % (0.0-1.0); EOS # 0.4 10^3/uL (0.0-0.50); EOS % 4.4 % (0.0-3.0); IMMATURE GRANULOCYTE % 1.7 % (0-0); LYMPH # 1.6 10^3/uL (1.5-4.5); LYMPH % 17.5 % (24.0-44.0); MEAN CORPUSCULAR HEMOGLOBIN 34.5 pg (27.0-33.0); MEAN CORPUSCULAR HGB CONC 33.4 g/dl (32.0-36.5); MEAN CORPUSCULAR VOLUME 103.2 fl (80.0-96.0); MONO # 1.3 10^3/uL (0.0-0.8); NEUTROPHILS # 5.7 10^3/uL (1.8-7.7); NEUTROPHILS % 61.6 % (36.0-66.0); PLATELET COUNT, AUTOMATED 389 10^3/uL (150-450); RED CELL DISTRIBUTION WIDTH 13.8 % (11.5-14.5); WHITE BLOOD COUNT 9.3 10^3/uL (4.0-10.0)
[2016-12-29] MEDS: HEPARIN SOD (PORCINE) 5000 UNITS/ML VIAL SC SCH ×3 (06:32→21:44)
[2016-12-29] MEDS: **hydrALAZINE** 10 MG TAB PO SCH ×3 (06:32→21:43)
[2016-12-29 06:37] VITALS: BP 178/88
[2016-12-29 06:46] LABS: ALBUMIN 2.6 GM/DL (3.2-5.2); ALBUMIN/GLOBULIN RATIO 0.67 (1.00-1.93); ALKALINE PHOSPHATASE 82 U/L (45-117); ALT/SGPT 71 U/L (12-78); ANION GAP 10 MEQ/L (8-16); AST/SGOT 85 U/L (7-37); BILIRUBIN,TOTAL 0.4 MG/DL (0.2-1.0); BLOOD UREA NITROGEN 7 MG/DL (7-18); CALCIUM LEVEL 8.7 MG/DL (8.8-10.2); CARBON DIOXIDE LEVEL 19 MEQ/L (21-32); CHLORIDE LEVEL 107 MEQ/L (98-107); CREATININE FOR GFR 0.75 MG/DL (0.55-1.02); GLOMERULAR FILTRATION RATE > 60.0 (>32); GLUCOSE, FASTING 193 MG/DL (83-110); POTASSIUM SERUM 3.4 MEQ/L (3.5-5.1); SODIUM LEVEL 136 MEQ/L (136-145); TOTAL PROTEIN 6.5 GM/DL (6.4-8.2)
[2016-12-29] MEDS ORDERED: POTASSIUM CHLORIDE 10 MEQ SR TABLET PO ONE (08:00)
[2016-12-29 09:04] VITALS: BP 151/78
[2016-12-29] MEDS: HumaLOG INSULIN (NovoLOG) PER UNIT SC SCH ×4 (09:33→21:00)
[2016-12-29] MEDS: BISOPROLOL FUMARATE 10 MG TAB PO SCH (09:34)
[2016-12-29] MEDS: NITROFURANTOIN (MACROBID) 100 MG CAP PO SCH ×2 (09:35→21:44)
[2016-12-29] MEDS: FERROUS SULFATE 325MG TAB PO SCH (09:35)
[2016-12-29] MEDS: MULTIVITAMINS/MINERALS THERAP 1 TAB PO SCH (09:35)
--- NOTE | 2016-12-29 10:22 | IPNPDOC ---
Text Note Date of Service The patient was seen on 12/29/16. NOTE Subjective: Patient is a 81-year-old female with a PMHx of Alzheimer's dementia, hypertension, diastolic heart failure, diabetes mellitus type 2, Chronic kidney disease stage III, asthma, primary hyperparathyroidism, iron deficiency anemia, vitamin D deficiency, Hyperplastic polyp, Pseudogout, Cervical radiculopathy, Cystocele, fatty liver disease. She presented to the ER found to be confused. Was admitted for acute metabolic encephalopathy and dehydration. Infectious source could not be found. Imaging revealed increase in liver mass size but as per patient and , didn't no biopsy was consented for until they discuss with their primary. Patient is currently DNR and DNI. Patient was seen and examined at the bedside. Patient has denied any problems overnight or this morning. She still still appears anxious. Objective: Vitals (See below) General: Lying in bed, no acute distress, comfortable, AAAOx3 HEENT: NC, AT CVS: RRR, +S1S2 Lungs: Fair air entry b/l, -w/r/r Abdomen: Soft, ND, NT, Extremities: - Edema, - Calf tenderness Assessment and plan: s/p Acute metabolic encephalopathy - likely 2/2 dehydration, possibly 2/2 infectious etiology - 2/2 UTI, yeast infection, possibly 2/2 worsening dementia - AAOx3, No focal deficits noted - Recent history of UTI; was started on Nitrofurantoin outpatient and has completed course while inpatient - CT abdomen/pelvis 12/22: increased hepatic mass - currently ( healthcare proxy) does not want to pursue biopsy - CT head 12/22: No acute hemorrhage or infarct - s/p IV fluid hydration s/p Urinary tract infection (as an outpatient) - s/p Leukocytosis; CRP continue to trend down - UA negative, however recent UTI on antibiotics as outpatient, CXR negative - s/p Nitrofurantoin (Total of 7 days) s/p Vaginal discomfort - likely 2/2 yeast infection - s/p Diflucan (Completed 7 days of treatment) s/p Leukocytosis - possibly 2/2 reactive process, possibly 2/2 infectious - s/p Febrile episodes - Improved HTN - BP remains elevated; possibly component of anxiety - c/w Bisoprolol, Ramipril, Hydralazine - Will increase dose of Hydralazine - c/w Anxiety control medications Generalized Anxiety - c/w Alprazolam TID PRN - c/w Citalopram; will increase dose for tonight 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, less likely infectious - Cancer markers CA19-9, CA125, CEA negative; AFP pending - ANDI positive - Currently are not pursuing biopsy, as per family - Had discussion with about possibility of cancer, aware of risks and benefits of not getting a biopsy - Patient and family will discuss with their primary care provider and workup outside the hospital s/p Lower extremity weakness - possibly 2/2 decompensated state - c/w physical therapy; recommend home with services - not cleared currently DM2 - c/w ISS and Levemir 5 units Acute on chronic renal disease - Cr baseline of 1-1.1 - Cr noted to have improved from admission Dementia - c/w Donepezil RANDOLPH - c/w Ferrous sulfate Allergic rhinitis - c/w Fexofenadine DLP - c/w Pravastatin DVT prophylaxis - c/w Heparin Disposition: - s/p Antibiotics and antifungal therapy - c/w BP control / Anxiety control - c/w PT; aim for discharge home with services once BP is well controlled VS,Fishbone, I+O VS, Fishbone, I+O Laboratory Tests 12/29/16 05:44 Red Blood Count 3.10 L, Mean Corpuscular Volume 103.2 H, Mean Corpuscular Hemoglobin 34.5 H, Mean Corpuscular Hemoglobin Concent 33.4, Red Cell Distribution Width 13.8, Neutrophils (%) (Auto) 61.6, Lymphocytes (%) (Auto) 17.5 L, Monocytes (%) (Auto) 14.0 H, Eosinophils (%) (Auto) 4.4 H, Basophils (% ) (Auto) 0.8, Neutrophils # (Auto) 5.7, Lymphocytes # (Auto) 1.6, Monocytes # ( Auto) 1.3 H, Eosinophils # (Auto) 0.4, Basophils # (Auto) 0.1, Calcium Level 8.7 L, Aspartate Amino Transf (AST/SGOT) 85 H, Alanine Aminotransferase (ALT/ SGPT) 71, Alkaline Phosphatase 82, Total Bilirubin 0.4, Total Protein 6.5, Albumin 2.6 L Vital Signs Date Time Temp Pulse Resp B/P (MAP) Pulse Ox O2 Delivery O2 Flow Rate FiO2 12/29/16 09:34 85 166/88 12/29/16 06:37 20 Room Air 12/29/16 06:00 97.7 91 I&O- Last 24 Hours up to 6 AM 12/30/16 06:00 Intake Total 240 ml Output Total 200 ml Balance 40 ml RESHMA GANDARA MD Dec 29, 2016 10:22
[2016-12-29 14:00] VITALS: BP 190/80
[2016-12-29] MEDS: RAMIPRIL 5 MG CAP PO SCH (18:42)
[2016-12-29] MEDS: PRAVASTATIN 20 MG TAB PO SCH (18:42)
[2016-12-29] MEDS: MONTELUKAST 10 MG TAB PO SCH (18:42)
[2016-12-29] MEDS: LEVEMIR (INSULIN DETEMIR) 1 UNITS/0.01ML SC SCH (21:00)
[2016-12-29] MEDS: ASPIRIN 81 MG ENTERIC TAB PO SCH (21:43)
[2016-12-29] MEDS: DONEPEZIL 5 MG TAB PO SCH (21:46)
[2016-12-29] MEDS: CitaloPRAM (CeleXA) 20 MG TAB PO SCH (21:46)
[2016-12-29 22:00] VITALS: BP 165/88
[2016-12-30] MEDS: ALPRAZolam 0.25 MG TAB PO PRN (03:26)
[2016-12-30] MEDS: ACETAMINOPHEN TAB 650MG DOSE (2X325MG) PO PRN ×3 (03:26→17:46)
[2016-12-30 06:00] VITALS: BP 178/86
[2016-12-30 06:25] LABS: BASO # 0.1 10^3/uL (0.0-0.2); BASO % 0.8 % (0.0-1.0); EOS # 0.3 10^3/uL (0.0-0.50); EOS % 3.1 % (0.0-3.0); IMMATURE GRANULOCYTE % 1.3 % (0-0); LYMPH # 1.6 10^3/uL (1.5-4.5); MEAN CORPUSCULAR HEMOGLOBIN 34.1 pg (27.0-33.0); MEAN CORPUSCULAR HGB CONC 33.1 g/dl (32.0-36.5); MEAN CORPUSCULAR VOLUME 103.1 fl (80.0-96.0); MONO # 1.4 10^3/uL (0.0-0.8); MONO % 15.3 % (0.0-5.0); NEUTROPHILS # 5.5 10^3/uL (1.8-7.7); NEUTROPHILS % 61.5 % (36.0-66.0); PLATELET COUNT, AUTOMATED 406 10^3/uL (150-450); RED CELL DISTRIBUTION WIDTH 13.9 % (11.5-14.5); WHITE BLOOD COUNT 8.9 10^3/uL (4.0-10.0)
[2016-12-30] MEDS: **hydrALAZINE** 10 MG TAB PO SCH (06:39)
[2016-12-30] MEDS: HEPARIN SOD (PORCINE) 5000 UNITS/ML VIAL SC SCH ×3 (06:39→21:50)
[2016-12-30 06:56] LABS: ALBUMIN 2.6 GM/DL (3.2-5.2); ALBUMIN/GLOBULIN RATIO 0.68 (1.00-1.93); ALKALINE PHOSPHATASE 86 U/L (45-117); ALT/SGPT 69 U/L (12-78); ANION GAP 8 MEQ/L (8-16); AST/SGOT 68 U/L (7-37); BILIRUBIN,TOTAL 0.6 MG/DL (0.2-1.0); BLOOD UREA NITROGEN 7 MG/DL (7-18); CALCIUM LEVEL 8.7 MG/DL (8.8-10.2); CARBON DIOXIDE LEVEL 23 MEQ/L (21-32); CHLORIDE LEVEL 107 MEQ/L (98-107); CREATININE FOR GFR 0.67 MG/DL (0.55-1.02); GLOMERULAR FILTRATION RATE > 60.0 (>32); GLUCOSE, FASTING 202 MG/DL (83-110); MAGNESIUM LEVEL 2.1 MG/DL (1.8-2.4); POTASSIUM SERUM 3.6 MEQ/L (3.5-5.1); SODIUM LEVEL 138 MEQ/L (136-145); TOTAL PROTEIN 6.4 GM/DL (6.4-8.2)
[2016-12-30] MEDS: NITROFURANTOIN (MACROBID) 100 MG CAP PO SCH ×2 (08:19→21:50)
[2016-12-30] MEDS: BISOPROLOL FUMARATE 10 MG TAB PO SCH (08:20)
[2016-12-30] MEDS: FERROUS SULFATE 325MG TAB PO SCH (08:21)
[2016-12-30] MEDS: MULTIVITAMINS/MINERALS THERAP 1 TAB PO SCH (08:21)
[2016-12-30] MEDS: HumaLOG INSULIN (NovoLOG) PER UNIT SC SCH ×4 (08:23→21:03)
--- NOTE | 2016-12-30 12:02 | IPN ---
DATE: 12/30/2016 Patient is seen and examined at the bedside. Chart has been reviewed. This morning, patient complains of a slight headache. No change in vision. No chest pain, pressure or tightness. No shortness of breath. Patient is tearful at the bedside and is anxious to go home. Temperature is 97.6, pulse 76, respiratory rate 18, blood pressure 178/88, 90% on room air. Generally, patient appears to be distressed. She is crying at the bedside wanting to go home. Awake, alert and oriented times three. Lungs are clear to auscultation. No wheezing, rales or rhonchi. Heart S1, S2. Sinus rhythm. Abdomen is soft, nontender, nondistended. Extremities no cyanosis, clubbing or pitting edema. LABORATORY DATA: CBC and metabolic panel and microbiology have been reviewed. ASSESSMENT/PLAN: This is an 81-year-old female with history of Alzheimer's dementia, hypertension, diastolic heart failure, type 2 diabetes, chronic kidney disease stage III, asthma, primary hyperparathyroidism, iron deficiency anemia, vitamin D deficiency, hyperplastic polyp, pseudogout, cervical radiculopathy, cystocele, and fatty liver disease who presented to the emergency room, found to be confused, was admitted for dehydration. No infectious disease was found. Patient had an increase in liver mass size, but did not want to have a biopsy. She is currently DO NOT RESUSCITATE, DO NOT INTUBATE with the following issues: 1. Hypertension, uncontrolled. The patient has been on bisoprolol and ramipril , hydralazine has been added, which has been increased to 40 mg every 8 hours for better control. 2. Acute metabolic encephalopathy secondary to dehydration, UTI, yeast infection with worsening dementia. The patient had been on nitrofurantoin and completed a course. CT abdomen and pelvis shows increased hepatic mass. , who is the healthcare proxy, did not want to pursue biopsy. CT of the head showed no acute infarct or hemorrhage. Status post IV fluid hydration. 3. Vaginal vaginitis status post Diflucan. 4. Generalized anxiety. As needed Xanax. 5. Hepatic mass. CA 19-9, CA-125 are all negative. AFP has been sent. ANDI positive. Not pursuing a biopsy. 6. Lower extremity weakness due to decompensated state. Still awaiting physical therapy clearance. 7. Type 2 diabetes on insulin and Levemir insulin. Controlled. 8. Acute on chronic renal failure. At baseline creatinine. 9. Dementia. On donepezil. 10. Iron deficiency anemia. On ferrous sulfate. 11. Allergic rhinitis. On fexofenadine. 12. Dyslipidemia. On atorvastatin. Awaiting physical therapy clearance prior to discharge home. Medically stable for discharge. [facility]
[2016-12-30] MEDS: **hydrALAZINE** 50 MG TAB PO SCH ×2 (13:09→21:50)
[2016-12-30 14:00] VITALS: BP 184/86
[2016-12-30 15:00] VITALS: BP 178/70
[2016-12-30] MEDS: MONTELUKAST 10 MG TAB PO SCH (17:34)
[2016-12-30] MEDS: PRAVASTATIN 20 MG TAB PO SCH (17:34)
[2016-12-30] MEDS: RAMIPRIL 5 MG CAP PO SCH (17:34)
[2016-12-30] MEDS: CitaloPRAM (CeleXA) 20 MG TAB PO SCH (21:50)
[2016-12-30] MEDS: DONEPEZIL 5 MG TAB PO SCH (21:51)
[2016-12-30] MEDS: LEVEMIR (INSULIN DETEMIR) 1 UNITS/0.01ML SC SCH (21:51)
[2016-12-30] MEDS: ASPIRIN 81 MG ENTERIC TAB PO SCH (21:51)
[2016-12-30 22:00] VITALS: BP 148/80
[2016-12-31] VITALS (8 sets, daily range): BP systolic 122–212; BP diastolic 56–98
[2016-12-31] MEDS: ACETAMINOPHEN TAB 650MG DOSE (2X325MG) PO PRN ×3 (00:13→20:03)
[2016-12-31] MEDS: ALPRAZolam 0.25 MG TAB PO PRN ×3 (00:13→20:03)
[2016-12-31] MEDS: **hydrALAZINE** 50 MG TAB PO SCH (05:29)
[2016-12-31] MEDS: HEPARIN SOD (PORCINE) 5000 UNITS/ML VIAL SC SCH ×3 (05:30→21:12)
[2016-12-31] MEDS ORDERED: **hydrALAZINE** 50 MG TAB PO ONE (06:00)
[2016-12-31 06:40] LABS: BASO # 0.1 10^3/uL (0.0-0.2); BASO % 0.5 % (0.0-1.0); EOS # 0.3 10^3/uL (0.0-0.50); EOS % 2.3 % (0.0-3.0); IMMATURE GRANULOCYTE % 0.9 % (0-0); LYMPH # 1.4 10^3/uL (1.5-4.5); LYMPH % 11.7 % (24.0-44.0); MEAN CORPUSCULAR HEMOGLOBIN 34.1 pg (27.0-33.0); MEAN CORPUSCULAR HGB CONC 33.2 g/dl (32.0-36.5); MEAN CORPUSCULAR VOLUME 102.5 fl (80.0-96.0); MONO # 1.9 10^3/uL (0.0-0.8); MONO % 16.2 % (0.0-5.0); NEUTROPHILS # 8.1 10^3/uL (1.8-7.7); NEUTROPHILS % 68.4 % (36.0-66.0); PLATELET COUNT, AUTOMATED 454 10^3/uL (150-450); RED CELL DISTRIBUTION WIDTH 13.8 % (11.5-14.5); WHITE BLOOD COUNT 11.9 10^3/uL (4.0-10.0)
[2016-12-31 07:14] LABS: ALBUMIN 2.8 GM/DL (3.2-5.2); ALBUMIN/GLOBULIN RATIO 0.67 (1.00-1.93); ALKALINE PHOSPHATASE 95 U/L (45-117); ALT/SGPT 66 U/L (12-78); ANION GAP 8 MEQ/L (8-16); AST/SGOT 47 U/L (7-37); BILIRUBIN,TOTAL 0.7 MG/DL (0.2-1.0); BLOOD UREA NITROGEN 6 MG/DL (7-18); CARBON DIOXIDE LEVEL 23 MEQ/L (21-32); CHLORIDE LEVEL 106 MEQ/L (98-107); CREATININE FOR GFR 0.66 MG/DL (0.55-1.02); GLOMERULAR FILTRATION RATE > 60.0 (>32); GLUCOSE, FASTING 220 MG/DL (83-110); POTASSIUM SERUM 3.7 MEQ/L (3.5-5.1); SODIUM LEVEL 137 MEQ/L (136-145)
[2016-12-31] MEDS ORDERED: ISOSORBIDE MON. (IMDUR) 30 MG XR TAB PO ONE (07:30)
[2016-12-31] MEDS ORDERED: guaiFENesin DM LIQ 10ML UD PO PRN (07:30)
[2016-12-31] MEDS ORDERED: guaiFENesin DM LIQ 10ML UD PO ONE (08:00)
[2016-12-31] MEDS: NITROGLYCERIN 2% OINT 1 GM *U/D* PKT TOP SCH ×4 (08:19→20:02)
[2016-12-31] MEDS: FERROUS SULFATE 325MG TAB PO SCH (08:24)
[2016-12-31] MEDS: BISOPROLOL FUMARATE 10 MG TAB PO SCH (08:25)
[2016-12-31] MEDS: NITROFURANTOIN (MACROBID) 100 MG CAP PO SCH ×2 (08:26→21:08)
[2016-12-31] MEDS: MULTIVITAMINS/MINERALS THERAP 1 TAB PO SCH (08:26)
[2016-12-31] MEDS: HumaLOG INSULIN (NovoLOG) PER UNIT SC SCH ×5 (08:28→21:00)
--- NOTE | 2016-12-31 08:51 | REP ---
Clinical: Cough. Comparison: 12/22/2016. Findings: Perihilar and lower lobe opacities (left greater than right) along with prominent interstitial markings and indistinct pulmonary vasculature identified. Differential diagnosis includes multifocal pneumonia as well as pulmonary interstitial edema. No definite effusion. No pneumothorax. Mediastinum and cardiac silhouette are stable and within normal limits. Skeletal structures are intact. Impression: Findings as described above suggest multifocal pneumonia versus interstitial edema. Signed by Roni Oneal MD 12/31/2016 08:43 A
[2016-12-31] MEDS ORDERED: FUROSEMIDE 40 MG/4 ML VIAL (J1940) IV ONE (09:00)
--- NOTE | 2016-12-31 11:47 | IPN ---
DATE: 12/31/2016 Patient complained of severe shortness of breath with cough this morning. Blood pressure was over 200. Chest x-ray showed multifocal pneumonia versus edema. Patient has been afebrile. No fevers. White count has slightly been elevated at 11.9. Patient's BNP is elevated 2839. Patient denies any chest pain or pressure. She complains of cough productive of white sputum, increasing shortness of breath, "I don't feel well." Temperature is 98.7, pulse 92, respiratory rate 19 blood pressure 212/96. Generally, patient is awake, alert and oriented to herself only. She is demented at baseline, pleasantly confused, moaning at the bedside. Complaining of not feeling well. Pupils round and reactive. Moist mucous membranes. Lungs diminished with bilateral rales. Heart S1, S2. Regular rate and rhythm. Abdomen is obese, soft, nontender, nondistended. Extremities positive edema. Laboratory data reviewed. Imaging studies showed multifocal pneumonia versus interstitial edema. BNP is 2839. ASSESSMENT/PLAN: This is an 81-year-old female who presented to the emergency room with altered mental status, history of Alzheimer's dementia which has been progressive, hypertension, diastolic heart failure, type 2 diabetes, chronic kidney disease stage III, asthma, primary hyperparathyroidism, iron deficiency anemia, hyperplastic polyp, pseudogout, cervical radiculopathy, cystocele, and fatty liver disease was found to have an increase in liver mass. did not want to have a biopsy. She is currently DO NOT RESUSCITATE, DO NOT INTUBATE with the following issues: 1. Hypertensive urgency. On bisoprolol and ramipril at maximum doses. Hydralazine has been added with no significant improvement. Nitro paste was given with blood pressure decreasing to 120s this morning. She appears to be slightly improved with IV Lasix times one. Chest x-ray shows pulmonary edema versus multifocal pneumonia. Since the patient has had no fevers despite a cough productive of white sputum, will treat for congestive heart failure (CHF). No empiric antibiotics for now. 2. Acute encephalopathy secondary to UTI, yeast infection with worsening dementia. Patient has diminished significantly for the past few days. CT abdomen shows increase in hepatic mass. , who is the healthcare proxy, did not want to pursue a biopsy. CT of the head showed no acute infarct or hemorrhage. 3. Vaginal vaginitis status post Diflucan. 4. Generalized anxiety on as needed Xanax. 5. Hepatic mass. Not pursuing a biopsy. 6. Type 2 diabetes on insulin and Levemir which is controlled. 7. Acute on chronic renal failure. At baseline creatinine. 8. Dementia. On donepezil. 9. Iron deficiency anemia. On ferrous sulfate. 10. Allergic rhinitis. On fexofenadine. 11. Dyslipidemia. On atorvastatin. 12. Diastolic CHF, acute decompensation, monitor I/O's daily weights fluid restrict CXR: edema vs multifocal pneumonia.no fever no empiric antibiotics. continue with lasix diuresis until euvolemic. then , recheck cxr. cycle cardiac markers. MTDD
[2016-12-31] MEDS: MEGESTROL ES SUSP 625 MG/5 ML UDC PO SCH (12:00)
--- NOTE | 2016-12-31 12:03 | IPN ---
DATE: 12/31/2016 The patient seen and examined at bedside. Chart has been reviewed. Patient complains of chest congestion, shortness of breath, not feeling well this morning. Her blood pressure was 212/96. She has been given hydralazine at 5:00 a.m. 50 mg. She currently denies any chest pain, pressure, or tightness, lightheadedness or dizziness. No changes in vision, upper or lower extremity weakness. Vitals: Temperature 98.7, pulse 92, respiratory rate 19, blood pressure 212/96. Generally, the patient is in distress. She appears uncomfortable. No use of respiratory accessory muscles. No facial asymmetry. Tongue is midline. Trachea is midline. No nasal flaring. She is able to speak in full sentences. Moaning at the bedside. Lungs: Diminished with rales. Heart: S1, S2, sinus rhythm. Abdomen: Obese, soft, nontender. Extremities: Positive edema. Laboratory Data: White count 11.9, hemoglobin 11, hematocrit 33, platelet count 454,000. Sodium 137, potassium 3.7, chloride 103, bicarbonate 23, BUN 6, creatinine 0.66, glucose 220. Chest x-ray showed multifocal pneumonia versus interstitial edema. Assessment and Plan: This is an 81-year-old female with history of diastolic heart failure, chronic advanced dementia, type 2 diabetes, chronic kidney disease Stage III, hypertension, and asthma. DICTATION CUT OFF AT THIS POINT. [facility]
[2016-12-31] MEDS: FUROSEMIDE 40 MG/4 ML VIAL (J1940) IV SCH ×2 (14:18→20:03)
[2016-12-31] MEDS: **hydrALAZINE** 10 MG TAB PO SCH ×3 (14:19→21:08)
[2016-12-31] MEDS: PRAVASTATIN 20 MG TAB PO SCH (17:44)
[2016-12-31] MEDS: MONTELUKAST 10 MG TAB PO SCH (17:44)
[2016-12-31] MEDS: RAMIPRIL 5 MG CAP PO SCH (17:44)
[2016-12-31 18:28] LABS: ANION GAP 10 MEQ/L (8-16); BLOOD UREA NITROGEN 9 MG/DL (7-18); CALCIUM LEVEL 9.1 MG/DL (8.8-10.2); CARBON DIOXIDE LEVEL 23 MEQ/L (21-32); CHLORIDE LEVEL 107 MEQ/L (98-107); CREATININE FOR GFR 0.75 MG/DL (0.55-1.02); GLOMERULAR FILTRATION RATE > 60.0 (>32); GLUCOSE, FASTING 234 MG/DL (83-110); POTASSIUM SERUM 3.5 MEQ/L (3.5-5.1); SODIUM LEVEL 140 MEQ/L (136-145)
[2016-12-31] MEDS: CitaloPRAM (CeleXA) 20 MG TAB PO SCH (21:08)
[2016-12-31] MEDS: ASPIRIN 81 MG ENTERIC TAB PO SCH (21:08)
[2016-12-31] MEDS: LEVEMIR (INSULIN DETEMIR) 1 UNITS/0.01ML SC SCH (21:09)
[2016-12-31] MEDS: DONEPEZIL 5 MG TAB PO SCH (21:09)
[2017-01-01] MEDS: NITROGLYCERIN 2% OINT 1 GM *U/D* PKT TOP SCH ×6 (00:30→21:12)
[2017-01-01] MEDS: FUROSEMIDE 40 MG/4 ML VIAL (J1940) IV SCH ×4 (02:30→20:00)
[2017-01-01] MEDS: ALPRAZolam 0.25 MG TAB PO PRN ×2 (05:14→23:52)
[2017-01-01] MEDS: ACETAMINOPHEN TAB 650MG DOSE (2X325MG) PO PRN ×2 (05:14→23:48)
[2017-01-01] MEDS: HEPARIN SOD (PORCINE) 5000 UNITS/ML VIAL SC SCH ×3 (05:15→21:11)
[2017-01-01 06:00] VITALS: BP 146/52
[2017-01-01 06:22] LABS: BASO % 0.3 % (0.0-1.0); EOS # 0.2 10^3/uL (0.0-0.50); EOS % 1.2 % (0.0-3.0); IMMATURE GRANULOCYTE % 0.8 % (0-0); LYMPH # 1.6 10^3/uL (1.5-4.5); LYMPH % 12.8 % (24.0-44.0); MEAN CORPUSCULAR HEMOGLOBIN 34.3 pg (27.0-33.0); MEAN CORPUSCULAR HGB CONC 33.9 g/dl (32.0-36.5); MEAN CORPUSCULAR VOLUME 101.3 fl (80.0-96.0); MONO % 17.7 % (0.0-5.0); NEUTROPHILS # 8.5 10^3/uL (1.8-7.7); NEUTROPHILS % 67.2 % (36.0-66.0); PLATELET COUNT, AUTOMATED 466 10^3/uL (150-450); RED CELL DISTRIBUTION WIDTH 13.9 % (11.5-14.5); WHITE BLOOD COUNT 12.7 10^3/uL (4.0-10.0)
[2017-01-01] MEDS ORDERED: ISOSORBIDE MON. (IMDUR) 60 MG XR TAB PO ONE (06:30)
[2017-01-01] MEDS ORDERED: MOXIFLOXACIN 400 MG TAB PO ONE (06:30)
[2017-01-01] MEDS ORDERED: **hydrALAZINE** 10 MG TAB PO ONE (06:30)
[2017-01-01 06:42] LABS: ALBUMIN 2.9 GM/DL (3.2-5.2); ALBUMIN/GLOBULIN RATIO 0.69 (1.00-1.93); ALKALINE PHOSPHATASE 89 U/L (45-117); ALT/SGPT 49 U/L (12-78); ANION GAP 12 MEQ/L (8-16); AST/SGOT 24 U/L (7-37); BILIRUBIN,TOTAL 0.7 MG/DL (0.2-1.0); BLOOD UREA NITROGEN 9 MG/DL (7-18); CALCIUM LEVEL 9.1 MG/DL (8.8-10.2); CARBON DIOXIDE LEVEL 24 MEQ/L (21-32); CHLORIDE LEVEL 102 MEQ/L (98-107); CREATININE FOR GFR 0.85 MG/DL (0.55-1.02); GLOMERULAR FILTRATION RATE > 60.0 (>32); GLUCOSE, FASTING 223 MG/DL (83-110); MAGNESIUM LEVEL 1.8 MG/DL (1.8-2.4); SODIUM LEVEL 138 MEQ/L (136-145); TOTAL PROTEIN 7.1 GM/DL (6.4-8.2)
[2017-01-01 06:50] VITALS: BP 146/52
[2017-01-01 06:51] LABS: MONO # 2.2 10^3/uL (0.0-0.8); POSITIVE DIFF POS FLAG
[2017-01-01] MEDS: HumaLOG INSULIN (NovoLOG) PER UNIT SC SCH ×4 (07:30→21:00)
--- NOTE | 2017-01-01 07:34 | REP ---
Clinical: Cough and fever. Comparison: 12/31/2016. Findings: Underpenetration and portable technique accentuate the interstitium and pulmonary vasculature, mild pulmonary vascular congestion cannot be excluded along with subtle basilar atelectasis (left greater than right). No obvious effusion. No pneumothorax. Mediastinum and cardiac silhouette are stable. Skeletal structures are intact. Impression: Cannot exclude mild pulmonary vascular congestion or left lower lobe atelectasis. Signed by Roni Oneal MD 01/01/2017 07:26 A
[2017-01-01] MEDS ORDERED: LEVALBUTEROL 1.25 MG/0.5 ML CONCENTRATE NEB NEB ONE (08:00)
[2017-01-01 09:00] VITALS: BP 197/79
[2017-01-01] MEDS ORDERED: ISOSORBIDE MON. (IMDUR) 30 MG XR TAB PO SCH (09:00)
[2017-01-01] MEDS: **hydrALAZINE** 10 MG TAB PO SCH ×4 (09:00→21:14)
[2017-01-01] MEDS ORDERED: POTASSIUM CHLORIDE 10 MEQ SR TABLET PO ONE (11:00)
[2017-01-01] MEDS ORDERED: MAG SULF 1GM/100ML (MAG RUN) 1 GM in APPROPRIATE DILUENT 1 EA IV ONE (11:00)
[2017-01-01] MEDS: FERROUS SULFATE 325MG TAB PO SCH (11:06)
[2017-01-01] MEDS: MULTIVITAMINS/MINERALS THERAP 1 TAB PO SCH (11:06)
[2017-01-01] MEDS: NITROFURANTOIN (MACROBID) 100 MG CAP PO SCH ×2 (11:06→21:00)
[2017-01-01] MEDS: MEGESTROL ES SUSP 625 MG/5 ML UDC PO SCH (11:10)
[2017-01-01] MEDS: BISOPROLOL FUMARATE 10 MG TAB PO SCH (11:13)
--- NOTE | 2017-01-01 11:38 | IPN ---
DATE OF SERVICE: 01/01/2017 Patient is seen and examined at the bedside. Chart has been reviewed. Patient complains of shortness of breath, but improved from yesterday. She complains of not feeling well this morning. Systolic pressure was 140 and patient had received hydralazine and isosorbide. She has diuresed well overnight with output of 2.1 liters. No other issues per nursing. Cough is improved. Vitals: Temperature is 96.8 with T-max of 100.2, pulse 85 sinus rhythm, respiratory rate 18, blood pressure 146/52, 95% on room air. Generally, patient is awake, alert and oriented to person only. She is pleasantly confused, but answers and follows commands. Pupils round and reactive to light and accommodation. Lungs diminished breath sounds with fine crackles at the bases. Heart S1, S2. Sinus rhythm. Abdomen is obese, soft, nontender, nondistended. Extremities trace edema. LABORATORY DATA: White count 12.7, hemoglobin 10.7, hematocrit 31.6, platelet count 466, hemoglobin 10.7, sodium 138, potassium 3, chloride 102, bicarbonate 24, BUN 9, creatinine 0.85, glucose 223. MICROBIOLOGY: Methicillin-resistant Staphylococcus aureus (MRSA) screen negative. IMAGING STUDY: 12/31 chest x-ray shows multifocal pneumonia versus interstitial edema. Chest x-ray 01/01 shows cannot exclude mild pulmonary vasculature congestion or a left lower lobe atelectasis. ASSESSMENT/PLAN: This is an 81-year-old DO NOT RESUSCITATE female who lives with her at home. History of Alzheimer's dementia, chronic diastolic heart failure, type 2 diabetes, hypertension, chronic kidney disease stage III, primary hyperparathyroidism, iron deficiency anemia, pseudogout, cervical radiculopathy, cystocele, and fatty liver disease was brought in by the due to confusion and was found to have an increase in the liver mass. did not want to have a biopsy. She is currently DO NOT RESUSCITATE, DO NOT INTUBATE. On admission she had hypertensive urgency. Currently on bisoprolol and ramipril at maximum doses. Hydralazine has been added, nitroglycerin paste, and Imdur for better control. Due to persistent uncontrolled blood pressure patient developed pulmonary edema treated with IV Lasix with good diuresis overnight. We will weigh daily. Fluid restrict. Strict intake and output for cardiac markers. At this time patient is feeling some symptomatic relief. We will have a repeat chest x-ray, cannot exclude mild interstitial edema with left basilar atelectasis due to a temperature of 100.2. Patient was given one dose of Avelox, will continue with diuresis and check for infiltrate after the fluid has been removed. 2. Hypokalemia. Low potassium secondary to Lasix diuresis which has been supplemented. 3. Chronic kidney disease. Currently with normal creatinine. Renally dose all medications and avoid nephrotoxins. 4. Advanced Alzheimer's dementia. Patient's healthcare proxy is her . She is unable to understand her condition and make medical decisions at this time. She had been treated for a urinary tract infection (UTI) and vaginitis and a yeast infection, but has declined over the past 3 days. 5. Generalized anxiety. As needed Xanax. 6. Hepatic mass. Not pursuing a biopsy. 7. Type 2 diabetes on Levemir. 8. Dementia. On donepezil. 9. Iron deficiency anemia. On ferrous sulfate. 10. Allergic rhinitis. On fexofenadine. 11. Congestive heart failure (CHF). Diastolic dysfunction. Acute decompensation. Intake and output daily. 12. Daily weights for diuresis. 13. Possible pneumonia. Currently had a low grade temperature and a cough. Chest x-ray shows atelectasis. We will recheck an x-ray in the morning and no antibiotics if persistently without an infiltrate.
[2017-01-01 14:00] VITALS: BP 142/68
[2017-01-01] MEDS: RAMIPRIL 5 MG CAP PO SCH (18:30)
[2017-01-01] MEDS: MONTELUKAST 10 MG TAB PO SCH (18:30)
[2017-01-01] MEDS: PRAVASTATIN 20 MG TAB PO SCH (18:30)
[2017-01-01] MEDS: DONEPEZIL 5 MG TAB PO SCH (21:00)
[2017-01-01] MEDS: LEVEMIR (INSULIN DETEMIR) 1 UNITS/0.01ML SC SCH (21:10)
[2017-01-01] MEDS: POTASSIUM CHLORIDE 10 MEQ SR TABLET PO SCH (21:10)
[2017-01-01] MEDS: ASPIRIN 81 MG ENTERIC TAB PO SCH (21:13)
[2017-01-01] MEDS: CitaloPRAM (CeleXA) 20 MG TAB PO SCH (21:18)
[2017-01-01 22:00] VITALS: BP 138/78
--- NOTE | 2017-01-01 22:21 | ECHO ---
DATE OF PROCEDURE: 01/01/2017 AGE: 81 GENDER: Female HEIGHT: 62 inches WEIGHT: 169 pounds BODY SURFACE AREA: 1.78 m2 PATIENT LOCATION: Inpatient, [address] [place] [address], room 4233 REFERRING PHYSICIAN: Marion Tiwari MD INDICATION: Heart failure (unspecified). 2-D MEASUREMENTS: RV: 4.6 cm LV: 4.2 cm Septum: 1.2 cm Posterior wall: 1.2 cm Aortic root: 2.4 cm LA: 3.6 cm LVEF: 75% DOPPLER MEASUREMENTS: AV: 2.84 m/s LVOT: 0.96 m/s LVOT diameter: 2.1 cm Mean AV gradient: 18 mmHg MV-E: 80, A: 102, EA ratio: 0.8 Early mitral deceleration time: 360 ms E prime: 4, A prime: 10, E/E prime ratio: 20 PV: 1.0 m/s Pulmonary artery acceleration time: 88 ms RVSP: 60 mmHg IVC: 1.8 cm COMMENTS: Normal sinus rhythm without intraventricular conduction disturbance. Left atrial size was upper limits of normal. Normal LV size. Mild to moderately dilated right heart chambers. LV wall thickness was mildly increased symmetrically. On real-time imaging from the parasternal and apical projections wall motion was symmetrical and hyperkinetic. Moderate mitral annular thickening with slight thickening of the leaflet edges, but adequate leaflet excursion and no posterior systolic buckling. Three equal size aortic cusps with moderately severe cusp thickening and reduced cusp separation. Normal aortic root size. No apparent intracardiac mass or pericardial effusion. Color flow Doppler study taken from the parasternal and apical projections showed mild mitral, moderate tricuspid, but no apparent aortic insufficiency. Guided continuous wave Doppler of her aortic valve and pulsed Doppler study of her LV outflow tract taken from the apical long axis five chamber projection showed an increased peak systolic velocity and mean gradient with dimensionless index of 0.39 in keeping with mild calcific aortic stenosis. Pulsed and continuous wave Doppler of her LV inflow tract taken from the apical four-chamber projection showed normal diastolic filling velocities against mitral stenosis. There was more prominent late diastolic/atrial dependent filling pattern. Diastolic dysfunction was further confirmed by a prolonged early mitral deceleration time and tissue Doppler of her mitral annulus. Current estimated mean left atrial pressure was significantly elevated at at least 20 mmHg. Pulsed and continuous wave Doppler of her pulmonary trunk showed a normal peak systolic velocity against RV outflow tract obstruction. Her pulmonary artery acceleration time was abbreviated consistent with an elevated pulmonary vascular resistance. Guided continuous wave Doppler of her tricuspid valve allowed our estimation of her right ventricular systolic pressure (severely increased). Her inferior vena cava was upper limits of normal in size with slightly reduced respiratory collapse in keeping with at least a mildly elevated central venous pressure. CONCLUSIONS: Mild concentric left ventricle hypertrophy with hyperkinetic wall motion. Borderline left atrial enlargement with Doppler evidence of an impairment of LV diastolic function and elevated mean left atrial pressure. Moderately dilated right heart chambers with Doppler evidence of severe pulmonary hypertension. Inferior vena cava (IVC) size upper limits of normal to mildly dilated with reduced respiratory collapse suggestive of a slightly elevated central venous pressure. Mild calcific aortic stenosis without insufficiency. Moderate mitral annular calcification with mild insufficiency.
[2017-01-02] MEDS: FUROSEMIDE 40 MG/4 ML VIAL (J1940) IV SCH ×4 (01:20→20:54)
[2017-01-02] MEDS: NITROGLYCERIN 2% OINT 1 GM *U/D* PKT TOP SCH ×6 (04:50→20:55)
[2017-01-02] MEDS: HEPARIN SOD (PORCINE) 5000 UNITS/ML VIAL SC SCH ×3 (05:57→22:00)
[2017-01-02 06:00] VITALS: BP 129/76
[2017-01-02 06:10] LABS: BASO # 0.1 10^3/uL (0.0-0.2); BASO % 0.6 % (0.0-1.0); EOS # 0.3 10^3/uL (0.0-0.50); EOS % 2.7 % (0.0-3.0); IMMATURE GRANULOCYTE % 0.6 % (0-0); LYMPH # 1.9 10^3/uL (1.5-4.5); LYMPH % 16.5 % (24.0-44.0); MEAN CORPUSCULAR HEMOGLOBIN 33.3 pg (27.0-33.0); MEAN CORPUSCULAR HGB CONC 32.8 g/dl (32.0-36.5); MEAN CORPUSCULAR VOLUME 101.5 fl (80.0-96.0); MONO % 17.3 % (0.0-5.0); NEUTROPHILS # 7.2 10^3/uL (1.8-7.7); NEUTROPHILS % 62.3 % (36.0-66.0); PLATELET COUNT, AUTOMATED 514 10^3/uL (150-450); WHITE BLOOD COUNT 11.6 10^3/uL (4.0-10.0)
[2017-01-02] MEDS ORDERED: MOXIFLOXACIN 400 MG TAB PO ONE (06:30)
[2017-01-02 06:31] LABS: ALBUMIN 2.7 GM/DL (3.2-5.2); ALBUMIN/GLOBULIN RATIO 0.64 (1.00-1.93); ALKALINE PHOSPHATASE 76 U/L (45-117); ALT/SGPT 39 U/L (12-78); ANION GAP 8 MEQ/L (8-16); AST/SGOT 26 U/L (7-37); BILIRUBIN,TOTAL 0.5 MG/DL (0.2-1.0); BLOOD UREA NITROGEN 15 MG/DL (7-18); CALCIUM LEVEL 9.3 MG/DL (8.8-10.2); CARBON DIOXIDE LEVEL 24 MEQ/L (21-32); CHLORIDE LEVEL 110 MEQ/L (98-107); CREATININE FOR GFR 0.94 MG/DL (0.55-1.02); GLOMERULAR FILTRATION RATE > 60.0 (>32); GLUCOSE, FASTING 172 MG/DL (83-110); MAGNESIUM LEVEL 2.2 MG/DL (1.8-2.4); POTASSIUM SERUM 3.6 MEQ/L (3.5-5.1); SODIUM LEVEL 142 MEQ/L (136-145); TOTAL PROTEIN 6.9 GM/DL (6.4-8.2)
[2017-01-02] MEDS: HumaLOG INSULIN (NovoLOG) PER UNIT SC SCH ×5 (07:30→20:56)
[2017-01-02] MEDS: POTASSIUM CHLORIDE 10 MEQ SR TABLET PO SCH ×2 (08:27→20:53)
[2017-01-02] MEDS: FERROUS SULFATE 325MG TAB PO SCH (08:27)
[2017-01-02] MEDS: **hydrALAZINE** 10 MG TAB PO SCH ×4 (08:28→20:54)
[2017-01-02] MEDS: NITROFURANTOIN (MACROBID) 100 MG CAP PO SCH ×2 (08:30→20:53)
[2017-01-02] MEDS: MULTIVITAMINS/MINERALS THERAP 1 TAB PO SCH (08:30)
[2017-01-02] MEDS: MEGESTROL ES SUSP 625 MG/5 ML UDC PO SCH (08:30)
[2017-01-02] MEDS: ISOSORBIDE MON. (IMDUR) 60 MG XR TAB PO SCH (08:30)
[2017-01-02] MEDS: BISOPROLOL FUMARATE 10 MG TAB PO SCH (08:30)
--- NOTE | 2017-01-02 10:43 | REP ---
Clinical: Shortness of breath . Comparison: 01/01/2017 . Technique: PA and lateral. Findings: The mediastinum and cardiac silhouette are stable and mild cardiomegaly is again suggested. Evaluation of the lung stack is limited due to technique which accentuates the pulmonary vasculature and interstitium. Moderate cephalization along with pulmonary vascular congestion and early interstitial edema cannot be excluded. No focal consolidation, definite effusion or pneumothorax appreciated. The skeletal structures are intact and normal. Impression: 1. Cannot exclude pulmonary vascular congestion/interstitial edema. Signed by Roni Oneal MD 01/02/2017 10:35 A
[2017-01-02] MEDS ORDERED: ACETAMINOPHEN TAB 650MG DOSE (2X325MG) PO ONE (11:00)
[2017-01-02] MEDS ORDERED: POTASSIUM CHLORIDE 10 MEQ SR TABLET PO ONE (11:00)
[2017-01-02 12:50] VITALS: BP 141/69
--- NOTE | 2017-01-02 13:19 | IPN ---
DATE OF SERVICE: 01/02/2017 Patient is seen and examined at the bedside. Chart has been reviewed. Patient complains of a headache this morning, cough is improved. Shortness of breath is improved. She has been diuresing well. Net negative for the past five days. No other issues per nursing. Headache is generalized. No changes in vision. No dysarthria. No facial asymmetry. Temperature is 98, pulse 74, respiratory rate 20, blood pressure is 129/76, 96% on room air. Generally awake, alert and oriented to person only, pleasantly confused, but follows commands. Pupils round and reactive, extraocular muscles are intact. Moist mucous membranes. No jugular venous distention (JVD). No thyromegaly. No lymphadenopathy. Lungs diminished breath sounds, bilateral crackles at the bases. Heart S1, S2. Sinus rhythm. Abdomen is obese, soft, nontender, nondistended. Extremities trace edema. White count 11.6, hemoglobin 11, hematocrit 33, platelet count 514, sodium 142, potassium 3.6, chloride 110, bicarbonate 24, BUN 15, creatinine 0.92, glucose 172. ASSESSMENT/PLAN: This is an 81-year-old female, DO NOT RESUSCITATE, lives with her at home. History of Alzheimer's dementia, chronic diastolic heart failure, type 2 diabetes, hypertension, chronic kidney disease stage III, primary hyperparathyroidism, iron deficiency anemia, pseudogout, cervical lymphadenopathy, fatty liver disease who was brought in by her due to confusion and was found to have a liver mass. They did not wish to have a biopsy. The patient has had hypertensive urgency treated with bisoprolol and ramipril at maximum doses. Hydralazine, nitroglycerin and Imdur have been added. Patient then developed congestive heart failure (CHF) due to uncontrolled hypertension with left basilar atelectasis versus infiltrate. The patient did have a low grade 100.2 temperature and was given a dose of Avelox. CURRENT ISSUES: 1. CHF exacerbation with acute diastolic dysfunction due to hypertensive urgency. Currently on Lasix diuresis, strict intake and output, daily weights and fluid restriction. Cardiac rehab as an outpatient. 2. Questionable pneumonia. Patient is currently being diuresed. Repeat chest x-ray to be done. Due to low grade temperature, patient was given Avelox for possible pneumonia. 3. Hypertensive urgency. Continue with Nitro paste, Imdur, hydralazine, ramipril and bisoprolol. Titrate according to goal blood pressure of 120 to 130. 4. Advanced Alzheimer's dementia. Healthcare proxy is her . She is unable to understand her condition to make medical decisions for herself at this time. 5. Anxiety. As needed Xanax. 6. Hepatic mass. Not pursuing a biopsy. 7. Type 2 diabetes on Levemir. 8. Dementia. On donepezil. 9. Iron deficiency anemia. On ferrous sulfate. 10. Allergic rhinitis. On fexofenadine. 11. Congestive heart failure (CHF). Diastolic dysfunction. Daily weights, continue diuresis.
[2017-01-02 14:00] VITALS: BP 131/63
[2017-01-02] MEDS: ACETAMINOPHEN TAB 650MG DOSE (2X325MG) PO PRN (15:19)
[2017-01-02 16:07] VITALS: BP 127/61
[2017-01-02 17:08] VITALS: BP 124/65
[2017-01-02] MEDS: MONTELUKAST 10 MG TAB PO SCH (17:15)
[2017-01-02] MEDS: PRAVASTATIN 20 MG TAB PO SCH (17:15)
[2017-01-02] MEDS: RAMIPRIL 5 MG CAP PO SCH (17:16)
[2017-01-02] MEDS: CitaloPRAM (CeleXA) 20 MG TAB PO SCH (20:53)
[2017-01-02] MEDS: DONEPEZIL 5 MG TAB PO SCH (20:53)
[2017-01-02] MEDS: ASPIRIN 81 MG ENTERIC TAB PO SCH (20:54)
[2017-01-02] MEDS: LEVEMIR (INSULIN DETEMIR) 1 UNITS/0.01ML SC SCH (20:55)
[2017-01-02 22:00] VITALS: BP 154/79
[2017-01-03] MEDS: FUROSEMIDE 40 MG/4 ML VIAL (J1940) IV SCH (02:28)
[2017-01-03] MEDS: ALPRAZolam 0.25 MG TAB PO PRN ×2 (02:34→23:44)
[2017-01-03] MEDS: NITROGLYCERIN 2% OINT 1 GM *U/D* PKT TOP SCH ×6 (04:00→21:16)
[2017-01-03 05:45] LABS: BASO # 0.1 10^3/uL (0.0-0.2); BASO % 0.7 % (0.0-1.0); EOS # 0.3 10^3/uL (0.0-0.50); EOS % 2.3 % (0.0-3.0); IMMATURE GRANULOCYTE % 0.7 % (0-0); LYMPH # 2.2 10^3/uL (1.5-4.5); LYMPH % 20.2 % (24.0-44.0); MEAN CORPUSCULAR HEMOGLOBIN 34.1 pg (27.0-33.0); MEAN CORPUSCULAR HGB CONC 33.4 g/dl (32.0-36.5); MONO % 18.3 % (0.0-5.0); NEUTROPHILS # 6.2 10^3/uL (1.8-7.7); NEUTROPHILS % 57.8 % (36.0-66.0); PLATELET COUNT, AUTOMATED 579 10^3/uL (150-450); WHITE BLOOD COUNT 10.7 10^3/uL (4.0-10.0)
[2017-01-03] MEDS: MOXIFLOXACIN 400 MG TAB PO SCH (05:56)
[2017-01-03] MEDS: HEPARIN SOD (PORCINE) 5000 UNITS/ML VIAL SC SCH ×3 (05:56→21:19)
[2017-01-03 06:00] VITALS: BP 138/75
[2017-01-03 06:07] LABS: ALBUMIN/GLOBULIN RATIO 0.68 (1.00-1.93); BILIRUBIN,TOTAL 0.5 MG/DL (0.2-1.0); CALCIUM LEVEL 9.7 MG/DL (8.8-10.2); CREATININE FOR GFR 1.09 MG/DL (0.55-1.02); GLOMERULAR FILTRATION RATE 51.2 (>32); MAGNESIUM LEVEL 2.2 MG/DL (1.8-2.4); POTASSIUM SERUM 4.1 MEQ/L (3.5-5.1); TOTAL PROTEIN 7.4 GM/DL (6.4-8.2)
[2017-01-03] MEDS: ACETAMINOPHEN TAB 650MG DOSE (2X325MG) PO PRN (06:23)
[2017-01-03] MEDS: HumaLOG INSULIN (NovoLOG) PER UNIT SC SCH ×4 (07:30→21:17)
[2017-01-03] MEDS ORDERED: POTASSIUM CHLORIDE 10 MEQ SR TABLET PO SCH (09:00)
[2017-01-03] MEDS: **hydrALAZINE** 10 MG TAB PO SCH ×4 (09:00→21:00)
[2017-01-03 09:52] VITALS: BP 138/65
[2017-01-03] MEDS: MULTIVITAMINS/MINERALS THERAP 1 TAB PO SCH (10:06)
[2017-01-03] MEDS: POTASSIUM CHLORIDE 10 MEQ SR TABLET PO SCH ×2 (10:06→21:16)
[2017-01-03] MEDS: NITROFURANTOIN (MACROBID) 100 MG CAP PO SCH ×2 (10:06→21:19)
[2017-01-03] MEDS: FERROUS SULFATE 325MG TAB PO SCH (10:07)
[2017-01-03] MEDS: MEGESTROL ES SUSP 625 MG/5 ML UDC PO SCH (10:07)
[2017-01-03] MEDS: ISOSORBIDE MON. (IMDUR) 60 MG XR TAB PO SCH (10:07)
[2017-01-03] MEDS: BISOPROLOL FUMARATE 10 MG TAB PO SCH (10:13)
[2017-01-03 12:38] VITALS: BP 136/66
[2017-01-03 14:00] VITALS: BP 120/60
--- NOTE | 2017-01-03 14:58 | IPN ---
DATE OF SERVICE: 01/03/2017 Patient is seen and examined at the bedside. Chart has been reviewed. Patient states that her breathing is significantly improved. No cough. No fever or chills. Patient has been diuresing well for the past 5 five days. Repeat chest x-ray shows cannot exclude pulmonary edema, moderate cephalization. No focal consolidation. Vital signs: Temperature 97.3, pulse 91, respiratory rate 16, blood pressure 138/75, 94% on room air. Generally awake, alert, oriented to person, answering questions appropriately with baseline dementia. Lungs diminished. Heart: S1, S2, sinus rhythm. Abdomen is obese, soft, nontender. Extremities: trace edema. CBC, metabolic panel, imaging studies have been reviewed. ASSESSMENT AND PLAN: This is an 81-year-old female, DO NOT RESUSCITATE/DO NOT INTUBATE, lives with her at home, with history of Alzheimer's dementia, which has been progressive, type 2 diabetes, hypertension, chronic kidney disease stage III, primary hyperparathyroidism, iron deficiency anemia, pseudogout, cervical lymphadenopathy, fatty liver, chronic diastolic heart failure, brought in by due to confusion and was found to have a liver mass with no biopsy, according to patient's family wishes, patient had hypertensive urgency treated with bisoprolol, ramipril, with hydralazine, nitroglycerin and Imdur added and developed pulmonary edema and questionable pneumonia with low grade fever. CURRENT ISSUES: 1. CHF with acute exacerbation, diastolic dysfunction. Patient appears euvolemic. Will discontinue intravenous (IV) Lasix, strict intakes and outputs, fluid restriction and will resume oral Lasix in the morning. 2. Questionable pneumonia. Patient given Avelox due to low grade fever, shortness of breath, cough. Chest x-ray shows infiltrates. Differential included edema versus pneumonia. Will discontinue antibiotics if the lungs are clear and no infection. 3. Her consolidation, hypertensive urgency resolved on nitro paste, Imdur, hydralazine, ramipril and bisoprolol. 4. Advanced Alzheimer's dementia, progressive. 5. Anxiety. On Xanax as needed. 6. Hepatic mass. Not pursuing a biopsy. 7. Type 2 diabetes. On Levemir. 8. Dementia. On donepezil. 9. Iron deficiency anemia. On ferrous sulfate. 10. Allergic rhinitis. On fexofenadine. DISPOSITION: Patient has failed home safety evaluation. Await physical therapy (PT) clearance.
[2017-01-03 16:30] VITALS: BP 180/96
[2017-01-03] MEDS: RAMIPRIL 5 MG CAP PO SCH (17:17)
[2017-01-03] MEDS: PRAVASTATIN 20 MG TAB PO SCH (17:17)
[2017-01-03] MEDS: MONTELUKAST 10 MG TAB PO SCH (17:17)
[2017-01-03] MEDS: LEVEMIR (INSULIN DETEMIR) 1 UNITS/0.01ML SC SCH (21:00)
[2017-01-03] MEDS: ASPIRIN 81 MG ENTERIC TAB PO SCH (21:18)
[2017-01-03] MEDS: CitaloPRAM (CeleXA) 20 MG TAB PO SCH (21:18)
[2017-01-03] MEDS: DONEPEZIL 5 MG TAB PO SCH (21:19)
[2017-01-03 22:00] VITALS: BP 140/80
[2017-01-04] VITALS (7 sets, daily range): BP systolic 132–175; BP diastolic 64–106
[2017-01-04] MEDS: NITROGLYCERIN 2% OINT 1 GM *U/D* PKT TOP SCH ×6 (00:17→19:43)
[2017-01-04] MEDS: MOXIFLOXACIN 400 MG TAB PO SCH (05:53)
[2017-01-04] MEDS: HEPARIN SOD (PORCINE) 5000 UNITS/ML VIAL SC SCH ×3 (05:54→20:55)
[2017-01-04 06:33] LABS: BASO # 0.1 10^3/uL (0.0-0.2); BASO % 0.9 % (0.0-1.0); EOS # 0.2 10^3/uL (0.0-0.50); EOS % 2.1 % (0.0-3.0); IMMATURE GRANULOCYTE % 0.9 % (0-0); LYMPH # 2.3 10^3/uL (1.5-4.5); LYMPH % 21.5 % (24.0-44.0); MEAN CORPUSCULAR HEMOGLOBIN 33.7 pg (27.0-33.0); MEAN CORPUSCULAR HGB CONC 32.6 g/dl (32.0-36.5); MEAN CORPUSCULAR VOLUME 103.4 fl (80.0-96.0); MONO # 1.8 10^3/uL (0.0-0.8); MONO % 16.8 % (0.0-5.0); NEUTROPHILS # 6.1 10^3/uL (1.8-7.7); NEUTROPHILS % 57.8 % (36.0-66.0); PLATELET COUNT, AUTOMATED 632 10^3/uL (150-450); WHITE BLOOD COUNT 10.6 10^3/uL (4.0-10.0)
[2017-01-04 07:05] LABS: ALBUMIN/GLOBULIN RATIO 0.67 (1.00-1.93); BILIRUBIN,TOTAL 0.4 MG/DL (0.2-1.0); CALCIUM LEVEL 10.3 MG/DL (8.8-10.2); CREATININE FOR GFR 1.15 MG/DL (0.55-1.02); GLOMERULAR FILTRATION RATE 48.1 (>32); MAGNESIUM LEVEL 2.5 MG/DL (1.8-2.4); TOTAL PROTEIN 7.5 GM/DL (6.4-8.2)
[2017-01-04 07:08] LABS: POTASSIUM SERUM 5.6 MEQ/L (3.5-5.1)
[2017-01-04] MEDS ORDERED: SOD POLYSTYRENE SULFONATE SUSP 15 GM/60 ML UD PO ONE (09:00)
[2017-01-04] MEDS ORDERED: CALCIUM GLUCONATE 1,000 MG in D5W MINI-BAG PLUS 100 ML IV ONE (09:00)
[2017-01-04] MEDS: POTASSIUM CHLORIDE 10 MEQ SR TABLET PO SCH ×2 (09:00→21:00)
[2017-01-04] MEDS: ISOSORBIDE MON. (IMDUR) 60 MG XR TAB PO SCH (09:01)
[2017-01-04] MEDS: MULTIVITAMINS/MINERALS THERAP 1 TAB PO SCH (09:01)
[2017-01-04] MEDS: BISOPROLOL FUMARATE 10 MG TAB PO SCH (09:01)
[2017-01-04] MEDS: FERROUS SULFATE 325MG TAB PO SCH (09:01)
[2017-01-04] MEDS: NITROFURANTOIN (MACROBID) 100 MG CAP PO SCH (09:02)
[2017-01-04] MEDS: **hydrALAZINE** 10 MG TAB PO SCH ×4 (09:02→20:54)
[2017-01-04] MEDS: MEGESTROL ES SUSP 625 MG/5 ML UDC PO SCH (09:02)
[2017-01-04] MEDS: HumaLOG INSULIN (NovoLOG) PER UNIT SC SCH ×4 (09:03→20:55)
[2017-01-04] MEDS ORDERED: SODIUM BICARBONATE 150 MEQ in STERILE WATER LITER BAG 1,000 ML IV SCH (11:00)
[2017-01-04] MEDS: ACETAMINOPHEN TAB 650MG DOSE (2X325MG) PO PRN (16:40)
--- NOTE | 2017-01-04 17:13 | IPN ---
DATE: 01/04/2017 Patient complains of slight headache this morning, she is much more awake and alert, no cough, no fever or chills. Patient is tolerating her diet well, although with decreased appetite. Temperature 97.7, pulse 88, respiratory rate 15, blood pressure 175/106, 96% on room air. GENERALLY: Awake, alert, oriented to person only, pleasantly confused. Pupils round and reactive. Moist mucous membranes. No jugular venous distention. LUNGS: Diminished, fine crackles at the bases. HEART: S1, S2, sinus rhythm. ABDOMEN: Obese, soft, nontender, nondistended. Positive bowel sounds. EXTREMITIES: No cyanosis or clubbing. SKIN: Warm, dry, well perfused, pink in color. CBC, metabolic panel, microbiology, and imaging studies have been reviewed. ASSESSMENT AND PLAN: This is an 81-year-old female, DO NOT RESUSCITATE/DO NOT INTUBATE, history of Alzheimer's dementia, lives with her , has progressive dementia and has been two person assist during the hospital stay, type 2 diabetes, hypertension, chronic kidney disease stage III, primary hyperparathyroidism, iron deficiency anemia, chronic diastolic heart failure, cervical lymphadenopathy and fatty liver, brought in by due to confusion, found to have liver mass, hypertensive urgency. The patient has been on bisoprolol, ramipril, hydralazine, nitroglycerin, and Imdur, developed pulmonary edema and questionable pneumonia with low grade fever and leukocytosis. CURRENT ISSUES: 1. Congestive heart failure (CHF) with acute exacerbation. 2. Diastolic dysfunction. Lasix has been discontinued due to acute kidney injury. She had previously been on potassium supplementation which will be discontinued due to elevated level today. 3. Hyperkalemia due to potassium supplements which have been discontinued. Patient will be given Kayexalate, calcium gluconate and repeat potassium level at a later time. 4. Metabolic acidosis with acute kidney injury secondary to over diuresis, 1 liter at 60 mL/hour, D5 half normal saline with an ampule of bicarbonate. Recheck basic metabolic panel at 6 p.m. 5. Questionable pneumonia. X-ray shows infiltrate which improved with diuresis. Patient had a fever and some cough. Currently with decreasing white count. Continue with Avelox for now. 6. Alzheimer's dementia, progressive. Patient will need home health if able to be discharged home, but currently requiring assistance with all activities. 7. Anxiety, on Xanax as needed. 8. Hepatic mass. Not pursuing a biopsy. 9. Type 2 diabetes, on Levemir. Consistent carbohydrate diet, adjust accordingly to better glycemic control. 10. Dementia, on donepezil. 11. Iron deficiency anemia, on ferrous sulfate. 12. Allergic rhinitis, on fexofenadine. 13. Uncontrolled hypertension. Continue on current medications, titrate as needed. 14. Deep venous thrombosis (DVT) prophylaxis. Compression stockings.
[2017-01-04] MEDS: MONTELUKAST 10 MG TAB PO SCH (18:09)
[2017-01-04] MEDS: PRAVASTATIN 20 MG TAB PO SCH (18:09)
[2017-01-04] MEDS: RAMIPRIL 5 MG CAP PO SCH (18:09)
[2017-01-04 18:37] LABS: CALCIUM LEVEL 9.8 MG/DL (8.8-10.2); CREATININE FOR GFR 1.22 MG/DL (0.55-1.02); GLOMERULAR FILTRATION RATE 44.9 (>32)
[2017-01-04 18:40] LABS: POTASSIUM SERUM 5.3 MEQ/L (3.5-5.1)
[2017-01-04] MEDS: CitaloPRAM (CeleXA) 20 MG TAB PO SCH (20:54)
[2017-01-04] MEDS: DONEPEZIL 5 MG TAB PO SCH (20:54)
[2017-01-04] MEDS: ASPIRIN 81 MG ENTERIC TAB PO SCH (20:54)
[2017-01-04] MEDS: LEVEMIR (INSULIN DETEMIR) 1 UNITS/0.01ML SC SCH (20:56)
[2017-01-05] MEDS: NITROGLYCERIN 2% OINT 1 GM *U/D* PKT TOP SCH ×6 (00:05→20:36)
[2017-01-05] MEDS: MOXIFLOXACIN 400 MG TAB PO SCH (05:20)
[2017-01-05] MEDS: HEPARIN SOD (PORCINE) 5000 UNITS/ML VIAL SC SCH ×3 (05:21→21:46)
[2017-01-05 06:00] VITALS: BP 156/72
[2017-01-05] MEDS: ACETAMINOPHEN TAB 650MG DOSE (2X325MG) PO PRN ×2 (06:02→20:46)
[2017-01-05] MEDS ORDERED: **hydrALAZINE** 10 MG TAB PO ONE (06:45)
[2017-01-05 07:13] LABS: BASO # 0.1 10^3/uL (0.0-0.2); BASO % 0.6 % (0.0-1.0); EOS # 0.2 10^3/uL (0.0-0.50); EOS % 2.1 % (0.0-3.0); IMMATURE GRANULOCYTE % 0.5 % (0-0); LYMPH # 2.6 10^3/uL (1.5-4.5); LYMPH % 28.6 % (24.0-44.0); MEAN CORPUSCULAR HEMOGLOBIN 33.5 pg (27.0-33.0); MEAN CORPUSCULAR HGB CONC 32.8 g/dl (32.0-36.5); MEAN CORPUSCULAR VOLUME 102.1 fl (80.0-96.0); MONO # 1.5 10^3/uL (0.0-0.8); MONO % 15.8 % (0.0-5.0); NEUTROPHILS # 4.8 10^3/uL (1.8-7.7); NEUTROPHILS % 52.4 % (36.0-66.0); PLATELET COUNT, AUTOMATED 615 10^3/uL (150-450); RED CELL DISTRIBUTION WIDTH 13.9 % (11.5-14.5); WHITE BLOOD COUNT 9.2 10^3/uL (4.0-10.0)
[2017-01-05 07:40] LABS: CALCIUM LEVEL 9.8 MG/DL (8.8-10.2); CREATININE FOR GFR 1.12 MG/DL (0.55-1.02); GLOMERULAR FILTRATION RATE 49.6 (>32); POTASSIUM SERUM 4.1 MEQ/L (3.5-5.1)
[2017-01-05 08:00] LABS: ERYTHROCYTE SEDIMENTATION RATE 73 mm/hr (0-30)
[2017-01-05 08:30] VITALS: BP 210/90
[2017-01-05] MEDS: MULTIVITAMINS/MINERALS THERAP 1 TAB PO SCH (08:36)
[2017-01-05] MEDS: HumaLOG INSULIN (NovoLOG) PER UNIT SC SCH ×4 (08:36→20:46)
[2017-01-05] MEDS: MEGESTROL ES SUSP 625 MG/5 ML UDC PO SCH (08:36)
[2017-01-05] MEDS: FERROUS SULFATE 325MG TAB PO SCH (08:36)
[2017-01-05] MEDS: POTASSIUM CHLORIDE 10 MEQ SR TABLET PO SCH (08:36)
[2017-01-05] MEDS: ISOSORBIDE MON. (IMDUR) 60 MG XR TAB PO SCH (08:37)
[2017-01-05] MEDS: **hydrALAZINE** 10 MG TAB PO SCH (08:37)
[2017-01-05] MEDS: BISOPROLOL FUMARATE 10 MG TAB PO SCH (08:38)
[2017-01-05] MEDS: LEVEMIR (INSULIN DETEMIR) 1 UNITS/0.01ML SC SCH ×2 (09:00→20:45)
[2017-01-05] MEDS ORDERED: cloNIDine 0.2 MG TAB PO ONE (09:00)
--- NOTE | 2017-01-05 09:55 | IPN ---
DATE: 01/05/2017 The patient seen and examined at the bedside. The chart has been reviewed. This morning, the patient complains of a slight headache. No changes in vision, chest pain pressure, or tightness, lightheadedness, palpitations. The patient is currently on the commode. She follows commands. Breathing well with complaints of dyspnea. She was found to have a blood pressure of 210/90. Blood pressure medications were given this morning with hydralazine and nitro paste. Afebrile. No cough. Temperature 98.6, pulse 63, respiratory rate 18, blood pressure 210/90, 94% on room air. Generally, the patient is awake, alert, oriented to person only. The patient is pleasantly confused but answers questions appropriately, sometimes slow to respond and often becomes emotional and has crying spells. Pupils are round and reactive. Extraocular muscles are intact. Tongue is midline. No use of respiratory or accessory muscles. No jugular venous distention or thyromegaly. Lungs are diminished with bilateral crackles bilateral bases. Heart: S1, S2. Sinus rhythm. Abdomen is obese, soft, nontender. Nondistended. Positive bowel sounds. Extremities: No cyanosis, clubbing or any pitting edema. SKIN: Warm, dry, well perfused. [place] in color. LABORATORY DATA: White count 9.2, hemoglobin 11, hematocrit 34, platelet count 615. Sodium 143, potassium 4.1, chloride 112, bicarbonate 24, BUN 24, creatinine 1.12, glucose of 219. Total CK 14, MB fraction is 1, troponin less than 0.02, C-reactive protein 1.06, BNP 265. MRSA screen and RSV panel 12/23/2016 is negative. ASSESSMENT/PLAN: This is an 81-year-old female DO NOT INTUBATE, DO NOT RESUSCITATE, history of Alzheimer's dementia with progressive deterioration who lives with her , has been with a two-person assist during this admission, type 2 diabetes, hypertension, chronic kidney disease, primary hyperparathyroidism, iron deficiency anemia, chronic diastolic heart failure. She presented to the emergency room with altered mental status and was found to have hypertensive urgency and a liver mass for which no biopsy was requested by the family. CURRENT ISSUES: 1. Uncontrolled hypertension, hypertensive urgency currently on nitro past, hydralazine, which will be adjusted to 25 every 6 hours. Due to acute kidney injury, the patient's IZZY inhibitor has been discontinued. Continue on Imdur 60 daily. 2. Congestive heart failure due to fluid overload and hypertensive urgency has resolved. Due to acute kidney injury, Lasix has been discontinued. 3. Acute kidney injury secondary to over diuresis. Strict input and output, daily weights and fluid restriction. Monitor for worsening creatinine. 4. Bilateral infiltrate, probably pneumonia on Avelox with decreasing white count down to normal and no fevers. 5. Acute encephalopathy secondary to acute infection, hypertensive urgency and worsening Alzheimer's dementia, improving. 6. Deconditioning: The patient will require group home placement most likely as she has had no significant improvement over the past 5-7 days. 7. Type 2 diabetes uncontrolled: Goal A1c less than 7. The patient's A1c is 8.5. Fingersticks show glucose of 294, 269, 264. The patient is on long-acting and short-acting insulin and goal glucose preprandial is less than 180. Deep venous thrombosis prophylaxis with heparin subcutaneously.
[2017-01-05] MEDS ORDERED: **hydrALAZINE HCL** 25 MG TAB PO ONE (11:00)
[2017-01-05 11:47] VITALS: BP 150/80
[2017-01-05] MEDS: ALPRAZolam 0.25 MG TAB PO PRN (12:16)
[2017-01-05 14:18] LABS: CALCIUM LEVEL 10.1 MG/DL (8.8-10.2); CREATININE FOR GFR 1.75 MG/DL (0.55-1.02); GLOMERULAR FILTRATION RATE 29.6 (>32)
[2017-01-05 14:34] LABS: POTASSIUM SERUM 5.8 MEQ/L (3.5-5.1)
[2017-01-05 15:00] VITALS: BP 101/53
[2017-01-05] MEDS ORDERED: CALCIUM GLUCONATE 1,000 MG in D5W MINI-BAG PLUS 100 ML IV ONE (15:00)
[2017-01-05] MEDS ORDERED: SOD POLYSTYRENE SULFONATE SUSP 15 GM/60 ML UD PO ONE (15:00)
[2017-01-05] MEDS: PRAVASTATIN 20 MG TAB PO SCH (17:14)
[2017-01-05] MEDS: MONTELUKAST 10 MG TAB PO SCH (17:14)
[2017-01-05 17:26] VITALS: BP 130/60
[2017-01-05] MEDS: **hydrALAZINE HCL** 25 MG TAB PO SCH (18:07)
[2017-01-05 18:35] LABS: CALCIUM LEVEL 10.6 MG/DL (8.8-10.2); CREATININE FOR GFR 1.85 MG/DL (0.55-1.02); GLOMERULAR FILTRATION RATE 27.8 (>32); POTASSIUM SERUM 4.7 MEQ/L (3.5-5.1)
[2017-01-05] MEDS: NS 1,000 ML IV SCH (19:23)
[2017-01-05] MEDS: ASPIRIN 81 MG ENTERIC TAB PO SCH (20:44)
[2017-01-05] MEDS: CitaloPRAM (CeleXA) 20 MG TAB PO SCH (20:44)
[2017-01-05] MEDS: DONEPEZIL 5 MG TAB PO SCH (20:44)
[2017-01-05 22:00] VITALS: BP 130/78
[2017-01-05 22:33] LABS: CALCIUM LEVEL 10.3 MG/DL (8.8-10.2); CREATININE FOR GFR 1.76 MG/DL (0.55-1.02); GLOMERULAR FILTRATION RATE 29.4 (>32)
[2017-01-05 22:44] LABS: POTASSIUM SERUM 5.2 MEQ/L (3.5-5.1)
[2017-01-06] MEDS: **hydrALAZINE HCL** 25 MG TAB PO SCH ×4 (00:10→17:58)
[2017-01-06] MEDS: NITROGLYCERIN 2% OINT 1 GM *U/D* PKT TOP SCH ×6 (00:11→20:37)
[2017-01-06] MEDS ORDERED: SOD POLYSTYRENE SULFONATE SUSP 15 GM/60 ML UD PO ONE (02:00)
[2017-01-06] MEDS: NS 1,000 ML IV SCH (03:49)
[2017-01-06] MEDS: ACETAMINOPHEN TAB 650MG DOSE (2X325MG) PO PRN ×2 (03:49→14:35)
[2017-01-06] MEDS: HEPARIN SOD (PORCINE) 5000 UNITS/ML VIAL SC SCH ×3 (05:22→21:19)
[2017-01-06] MEDS: MOXIFLOXACIN 400 MG TAB PO SCH (05:22)
[2017-01-06 06:00] VITALS: BP 134/75
[2017-01-06 06:10] LABS: BASO # 0.1 10^3/uL (0.0-0.2); BASO % 1.3 % (0.0-1.0); EOS # 0.1 10^3/uL (0.0-0.50); IMMATURE GRANULOCYTE % 0.5 % (0-0); LYMPH % 21.3 % (24.0-44.0); MEAN CORPUSCULAR HEMOGLOBIN 32.9 pg (27.0-33.0); MEAN CORPUSCULAR HGB CONC 31.6 g/dl (32.0-36.5); MEAN CORPUSCULAR VOLUME 104.2 fl (80.0-96.0); MONO # 1.3 10^3/uL (0.0-0.8); NEUTROPHILS # 5.8 10^3/uL (1.8-7.7); NEUTROPHILS % 61.9 % (36.0-66.0); PLATELET COUNT, AUTOMATED 573 10^3/uL (150-450); WHITE BLOOD COUNT 9.4 10^3/uL (4.0-10.0)
[2017-01-06 06:28] LABS: CALCIUM LEVEL 9.7 MG/DL (8.8-10.2); CREATININE FOR GFR 1.47 MG/DL (0.55-1.02); GLOMERULAR FILTRATION RATE 36.2 (>32); POTASSIUM SERUM 3.9 MEQ/L (3.5-5.1)
[2017-01-06] MEDS: MEGESTROL ES SUSP 625 MG/5 ML UDC PO SCH (08:20)
[2017-01-06] MEDS: HumaLOG INSULIN (NovoLOG) PER UNIT SC SCH ×4 (08:20→20:44)
[2017-01-06] MEDS: BISOPROLOL FUMARATE 10 MG TAB PO SCH (08:21)
[2017-01-06] MEDS: ISOSORBIDE MON. (IMDUR) 60 MG XR TAB PO SCH (08:22)
[2017-01-06] MEDS: MULTIVITAMINS/MINERALS THERAP 1 TAB PO SCH (08:22)
[2017-01-06] MEDS: FERROUS SULFATE 325MG TAB PO SCH (08:22)
[2017-01-06] MEDS: LEVEMIR (INSULIN DETEMIR) 1 UNITS/0.01ML SC SCH ×2 (08:24→21:18)
[2017-01-06 12:58] VITALS: BP 210/98
[2017-01-06 14:00] VITALS: BP 196/111
[2017-01-06 14:20] VITALS: BP 198/70
--- NOTE | 2017-01-06 14:24 | IPNPDOC ---
Text Note Date of Service The patient was seen on 01/06/17. NOTE Subjective: Patient is a 81-year-old female with a PMHx of Alzheimer's dementia, hypertension, diastolic heart failure, diabetes mellitus type 2, Chronic kidney disease stage III, asthma, primary hyperparathyroidism, iron deficiency anemia, vitamin D deficiency, Hyperplastic polyp, Pseudogout, Cervical radiculopathy, Cystocele, fatty liver disease. She presented to the ER found to be confused. Was admitted for acute metabolic encephalopathy and dehydration. Infectious source could not be found. Imaging revealed increase in liver mass size but as per patient and , didn't no biopsy was consented for until they discuss with their primary. Patient is currently DNR and DNI. Patient was found to have worsening productive cough and signs of fluid overload. CXR revealed she had a new infiltrate and was treated for CAP and received diurectis for diastolic CHF exacerbation. Patient was seen and examined at the bedside. Patient appears very tearful. Denies any pain. Objective: Vitals (See below) General: Lying in bed, no acute distress, comfortable, AAOx3 HEENT: NC, AT CVS: RRR, +S1S2 Lungs: Fair air entry b/l, -w/r/r Abdomen: Soft, ND, NT, Extremities: - Edema, - Calf tenderness Assessment and plan: HTN - BP remains elevated; likely worsened with anxiety - c/w Bisoprolol, Ramipril, Hydralazine - Will give dose of Clonidine PO if acutely elevated - c/w Anxiety control medications s/p Diastolic CHF exacerbation Bilateral infiltrates - likely 2/2 HCAP - Notes improvement in cough - Physical without any adventitious lung sounds - c/w Moxifloxacin (Day #5) s/p Acute metabolic encephalopathy - likely 2/2 dehydration, possibly 2/2 infectious etiology - 2/2 UTI, yeast infection, possibly 2/2 worsening dementia - AAOx3, No focal deficits noted - Recent history of UTI; was started on Nitrofurantoin outpatient and has completed course while inpatient - CT abdomen/pelvis 12/22: increased hepatic mass - currently ( healthcare proxy) does not want to pursue biopsy - CT head 12/22: No acute hemorrhage or infarct - s/p IV fluid hydration s/p Urinary tract infection (as an outpatient) and yeast infection - UA negative, however recent UTI on antibiotics as outpatient - s/p Nitrofurantoin (7 days) and Diflucan (7 days) Generalized Anxiety - c/w Alprazolam 0.25 q4h PRN - c/w Citalopram 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, less likely infectious - Cancer markers CA19-9, CA125, CEA negative; AFP pending - ADNI positive - Currently are not pursuing biopsy, as per family - Had discussion with about possibility of cancer, aware of risks and benefits of not getting a biopsy - Patient and family will discuss with their primary care provider and workup outside the hospital s/p Lower extremity weakness - possibly 2/2 decompensated state - c/w physical therapy; recommend home with services - not cleared currently DM2 - c/w ISS and Levemir 5 units Acute on chronic renal disease - Cr baseline of 1-1.1 - Cr noted to have improved from admission Dementia - c/w Donepezil RANDOLPH - c/w Ferrous sulfate Allergic rhinitis - c/w Fexofenadine DLP - c/w Pravastatin DVT prophylaxis - c/w Heparin Disposition: - c/w BP control / Anxiety control - Will look into placement options VS,Fishbone, I+O VS, Fishbone, I+O Laboratory Tests 01/05/17 18:00 Calcium Level 10.6 H 01/05/17 21:58 Calcium Level 10.3 H 01/06/17 05:48 Calcium Level 9.7, Red Blood Count 3.31 L, Mean Corpuscular Volume 104.2 H, Mean Corpuscular Hemoglobin 32.9, Mean Corpuscular Hemoglobin Concent 31.6 L, Red Cell Distribution Width 14.0, Neutrophils (%) (Auto) 61.9, Lymphocytes (%) ( Auto) 21.3 L, Monocytes (%) (Auto) 14.0 H, Eosinophils (%) (Auto) 1.0, Basophils (%) (Auto) 1.3 H, Neutrophils # (Auto) 5.8, Lymphocytes # (Auto) 2.0, Monocytes # (Auto) 1.3 H, Eosinophils # (Auto) 0.1, Basophils # (Auto) 0.1 Vital Signs Date Time Temp Pulse Resp B/P (MAP) Pulse Ox O2 Delivery O2 Flow Rate FiO2 01/06/17 13:07 210/98 01/06/17 09:00 Room Air 01/06/17 06:00 98.9 60 19 95 I&O- Last 24 Hours up to 6 AM 01/07/17 06:00 Intake Total 0 ml Output Total 0 ml Balance 0 ml RESHMA GANDARA MD Jan 06, 2017 14:24
[2017-01-06] MEDS: ALPRAZolam 0.25 MG TAB PO PRN (14:35)
[2017-01-06] MEDS ORDERED: cloNIDine 0.2 MG TAB PO ONE (15:00)
[2017-01-06 16:13] VITALS: BP 128/62
[2017-01-06] MEDS: MONTELUKAST 10 MG TAB PO SCH (17:58)
[2017-01-06] MEDS: PRAVASTATIN 20 MG TAB PO SCH (17:58)
[2017-01-06] MEDS: DONEPEZIL 5 MG TAB PO SCH (21:19)
[2017-01-06] MEDS: ASPIRIN 81 MG ENTERIC TAB PO SCH (21:19)
[2017-01-06] MEDS: CitaloPRAM (CeleXA) 20 MG TAB PO SCH (21:19)
[2017-01-06 22:00] VITALS: BP 145/65
[2017-01-07] MEDS: NITROGLYCERIN 2% OINT 1 GM *U/D* PKT TOP SCH ×6 (00:01→20:59)
[2017-01-07] MEDS: **hydrALAZINE HCL** 25 MG TAB PO SCH ×4 (00:02→17:19)
[2017-01-07] MEDS: ACETAMINOPHEN TAB 650MG DOSE (2X325MG) PO PRN (01:59)
[2017-01-07] MEDS: MOXIFLOXACIN 400 MG TAB PO SCH (05:59)
[2017-01-07] MEDS: HEPARIN SOD (PORCINE) 5000 UNITS/ML VIAL SC SCH ×3 (05:59→21:13)
[2017-01-07 06:00] VITALS: BP 147/79
[2017-01-07 06:19] LABS: BASO # 0.1 10^3/uL (0.0-0.2); BASO % 0.8 % (0.0-1.0); EOS # 0.1 10^3/uL (0.0-0.50); EOS % 1.2 % (0.0-3.0); IMMATURE GRANULOCYTE % 0.8 % (0-0); LYMPH # 2.6 10^3/uL (1.5-4.5); LYMPH % 21.8 % (24.0-44.0); MEAN CORPUSCULAR HEMOGLOBIN 33.7 pg (27.0-33.0); MEAN CORPUSCULAR HGB CONC 32.1 g/dl (32.0-36.5); MEAN CORPUSCULAR VOLUME 105.2 fl (80.0-96.0); MONO # 1.5 10^3/uL (0.0-0.8); MONO % 12.6 % (0.0-5.0); NEUTROPHILS # 7.4 10^3/uL (1.8-7.7); NEUTROPHILS % 62.8 % (36.0-66.0); PLATELET COUNT, AUTOMATED 599 10^3/uL (150-450); RED CELL DISTRIBUTION WIDTH 13.9 % (11.5-14.5); WHITE BLOOD COUNT 11.8 10^3/uL (4.0-10.0)
[2017-01-07] MEDS: HumaLOG INSULIN (NovoLOG) PER UNIT SC SCH ×4 (08:45→21:12)
[2017-01-07] MEDS: ISOSORBIDE MON. (IMDUR) 60 MG XR TAB PO SCH (08:47)
[2017-01-07] MEDS: BISOPROLOL FUMARATE 10 MG TAB PO SCH (08:47)
[2017-01-07] MEDS: MEGESTROL ES SUSP 625 MG/5 ML UDC PO SCH (08:48)
[2017-01-07] MEDS: FERROUS SULFATE 325MG TAB PO SCH (08:48)
[2017-01-07] MEDS: MULTIVITAMINS/MINERALS THERAP 1 TAB PO SCH (08:48)
[2017-01-07] MEDS: ALPRAZolam 0.25 MG TAB PO PRN ×3 (08:48→23:46)
[2017-01-07] MEDS: LEVEMIR (INSULIN DETEMIR) 1 UNITS/0.01ML SC SCH ×2 (08:49→21:13)
--- NOTE | 2017-01-07 08:59 | REP ---
Clinical: Shortness of breath. Comparison: 01/02/2017. Findings: Evaluation is limited by portable technique, positioning and underpenetration. Mediastinum and cardiac silhouette are relatively stable. Left lower lobe atelectasis/infiltrate cannot definitively be excluded. Remainder of lung stack are clear/stable. No effusion. No pneumothorax. Skeletal structures intact. Impression: Possible left lower lobe infiltrate/atelectasis. Signed by Roni Oneal MD 01/07/2017 08:51 A
--- NOTE | 2017-01-07 13:21 | IPNPDOC ---
Text Note Date of Service The patient was seen on 01/07/17. NOTE Subjective: Patient is a 81-year-old female with a PMHx of Alzheimer's dementia, hypertension, diastolic heart failure, diabetes mellitus type 2, Chronic kidney disease stage III, asthma, primary hyperparathyroidism, iron deficiency anemia, vitamin D deficiency, Hyperplastic polyp, Pseudogout, Cervical radiculopathy, Cystocele, fatty liver disease. She presented to the ER found to be confused. Was admitted for acute metabolic encephalopathy and dehydration. Infectious source could not be found. Imaging revealed increase in liver mass size but as per patient and , didn't no biopsy was consented for until they discuss with their primary. Patient is currently DNR and DNI. Patient was found to have worsening productive cough and signs of fluid overload. CXR revealed she had a new infiltrate and was treated for CAP and received diurectis for diastolic CHF exacerbation. Patient was seen and examined at the bedside. Her daughter was present at the bedside. Patient denied any new complaints overnight. Noted to have improvement in her tearfulness that had been noted earlier that morning. Objective: Vitals (See below) General: Lying in bed, no acute distress, comfortable, AAOx3 HEENT: NC, AT CVS: RRR, +S1S2 Lungs: Fair air entry b/l, -w/r/r Abdomen: Soft, ND, NT, Extremities: - Edema, - Calf tenderness Assessment and plan: HTN - Blood pressure remains very labile; currently blood pressure well controlled - c/w Bisoprolol, Ramipril, Hydralazine - s/p Clonidine 01/06, afternoon - c/w Anxiety control medications s/p Diastolic CHF exacerbation Bilateral infiltrates - likely 2/2 HCAP - Notes improvement in cough - Physical without any adventitious lung sounds, remains afebrile - White blood cell count has been noted to be slightly elevated this morning - CXR 01/07: Possible left lower lobe infiltrate/atelectasis - c/w Moxifloxacin (Day #6) - Will continue to follow clinical course and will consider changing antibiotics tomorrow if WBC count does not improve s/p Acute metabolic encephalopathy - likely 2/2 dehydration, possibly 2/2 infectious etiology - 2/2 UTI, yeast infection, possibly 2/2 worsening dementia - AAOx3, No focal deficits noted - Recent history of UTI; was started on Nitrofurantoin outpatient and has completed course while inpatient - CT abdomen/pelvis 12/22: increased hepatic mass - currently ( healthcare proxy) does not want to pursue biopsy - CT head 12/22: No acute hemorrhage or infarct - s/p IV fluid hydration s/p Urinary tract infection (as an outpatient) and yeast infection - UA negative, however recent UTI on antibiotics as outpatient - s/p Nitrofurantoin (7 days) and Diflucan (7 days) Generalized Anxiety - c/w Alprazolam 0.25 q4h PRN - c/w Citalopram 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, less likely infectious - Cancer markers CA19-9, CA125, CEA negative; AFP pending - ANDI positive - Currently are not pursuing biopsy, as per family - Had discussion with about possibility of cancer, aware of risks and benefits of not getting a biopsy - Patient and family will discuss with their primary care provider and workup outside the hospital s/p Lower extremity weakness - possibly 2/2 decompensated state - c/w physical therapy; recommend home with services - not cleared currently DM2 - c/w ISS and Levemir 5 units Acute on chronic renal disease - Cr baseline of 1-1.1 - Cr noted to have improved from admission Dementia - c/w Donepezil RANDOLPH - c/w Ferrous sulfate Allergic rhinitis - c/w Fexofenadine DLP - c/w Pravastatin DVT prophylaxis - c/w Heparin Disposition: - c/w BP control / Anxiety control - c/w the physical therapy and will look into placement options given disposition recommendations VS,Mac, I+O VS, Melindae, I+O Laboratory Tests 01/07/17 05:54 Red Blood Count 3.26 L, Mean Corpuscular Volume 105.2 H, Mean Corpuscular Hemoglobin 33.7 H, Mean Corpuscular Hemoglobin Concent 32.1, Red Cell Distribution Width 13.9, Neutrophils (%) (Auto) 62.8, Lymphocytes (%) (Auto) 21.8 L, Monocytes (%) (Auto) 12.6 H, Eosinophils (%) (Auto) 1.2, Basophils (%) ( Auto) 0.8, Neutrophils # (Auto) 7.4, Lymphocytes # (Auto) 2.6, Monocytes # (Auto ) 1.5 H, Eosinophils # (Auto) 0.1, Basophils # (Auto) 0.1 Vital Signs Date Time Temp Pulse Resp B/P (MAP) Pulse Ox O2 Delivery O2 Flow Rate FiO2 01/07/17 13:14 137/72 01/07/17 09:00 Room Air 01/07/17 08:47 64 01/07/17 06:00 96.3 21 96 I&O- Last 24 Hours up to 6 AM 01/08/17 06:00 Intake Total 420 ml Output Total 150 ml Balance 270 ml RESHMA GANDARA MD Jan 07, 2017 13:21
[2017-01-07 13:41] VITALS: BP 137/72
[2017-01-07] MEDS: MONTELUKAST 10 MG TAB PO SCH (17:19)
[2017-01-07] MEDS: PRAVASTATIN 20 MG TAB PO SCH (17:19)
[2017-01-07] MEDS: ASPIRIN 81 MG ENTERIC TAB PO SCH (20:59)
[2017-01-07] MEDS: CitaloPRAM (CeleXA) 20 MG TAB PO SCH (20:59)
[2017-01-07] MEDS: DONEPEZIL 5 MG TAB PO SCH (21:00)
[2017-01-07 22:00] VITALS: BP 147/87
[2017-01-08] MEDS: **hydrALAZINE HCL** 25 MG TAB PO SCH ×4 (00:14→17:29)
[2017-01-08] MEDS: NITROGLYCERIN 2% OINT 1 GM *U/D* PKT TOP SCH ×6 (00:15→20:00)
[2017-01-08 00:57] VITALS: BP 160/68
[2017-01-08] MEDS ORDERED: **hydrALAZINE** 10 MG TAB PO ONE (02:00)
[2017-01-08 02:43] VITALS: BP 148/72
[2017-01-08] MEDS: ALPRAZolam 0.25 MG TAB PO PRN (04:10)
[2017-01-08] MEDS: HEPARIN SOD (PORCINE) 5000 UNITS/ML VIAL SC SCH ×3 (05:19→21:46)
[2017-01-08] MEDS: MOXIFLOXACIN 400 MG TAB PO SCH (05:19)
[2017-01-08 06:00] VITALS: BP 150/75
[2017-01-08 07:04] LABS: BASO % 0.5 % (0.0-1.0); EOS # 0.1 10^3/uL (0.0-0.50); EOS % 1.4 % (0.0-3.0); IMMATURE GRANULOCYTE % 0.6 % (0-0); LYMPH # 2.3 10^3/uL (1.5-4.5); LYMPH % 26.5 % (24.0-44.0); MEAN CORPUSCULAR HEMOGLOBIN 33.3 pg (27.0-33.0); MEAN CORPUSCULAR HGB CONC 31.9 g/dl (32.0-36.5); MEAN CORPUSCULAR VOLUME 104.5 fl (80.0-96.0); MONO # 1.3 10^3/uL (0.0-0.8); MONO % 14.9 % (0.0-5.0); NEUTROPHILS # 4.9 10^3/uL (1.8-7.7); NEUTROPHILS % 56.1 % (36.0-66.0); PLATELET COUNT, AUTOMATED 566 10^3/uL (150-450); RED CELL DISTRIBUTION WIDTH 13.6 % (11.5-14.5); WHITE BLOOD COUNT 8.8 10^3/uL (4.0-10.0)
[2017-01-08] MEDS: HumaLOG INSULIN (NovoLOG) PER UNIT SC SCH ×4 (07:48→21:00)
[2017-01-08] MEDS: MEGESTROL ES SUSP 625 MG/5 ML UDC PO SCH (07:50)
[2017-01-08] MEDS: ISOSORBIDE MON. (IMDUR) 60 MG XR TAB PO SCH (07:52)
[2017-01-08] MEDS: BISOPROLOL FUMARATE 10 MG TAB PO SCH (07:52)
[2017-01-08] MEDS: FERROUS SULFATE 325MG TAB PO SCH (07:52)
[2017-01-08] MEDS: MULTIVITAMINS/MINERALS THERAP 1 TAB PO SCH (07:53)
[2017-01-08] MEDS: LEVEMIR (INSULIN DETEMIR) 1 UNITS/0.01ML SC SCH ×2 (07:53→21:47)
[2017-01-08 09:30] LABS: ALBUMIN/GLOBULIN RATIO 0.94 (1.00-1.93); ALKALINE PHOSPHATASE 62 U/L (45-117); ALT/SGPT 45 U/L (12-78); ANION GAP 7 MEQ/L (8-16); AST/SGOT 35 U/L (7-37); BILIRUBIN,TOTAL 0.4 MG/DL (0.2-1.0); BLOOD UREA NITROGEN 14 MG/DL (7-18); CALCIUM LEVEL 8.9 MG/DL (8.8-10.2); CARBON DIOXIDE LEVEL 22 MEQ/L (21-32); CHLORIDE LEVEL 115 MEQ/L (98-107); CREATININE FOR GFR 0.81 MG/DL (0.55-1.02); GLOMERULAR FILTRATION RATE > 60.0 (>32); GLUCOSE, FASTING 156 MG/DL (83-110); MAGNESIUM LEVEL 2.2 MG/DL (1.8-2.4); POTASSIUM SERUM 3.9 MEQ/L (3.5-5.1); SODIUM LEVEL 144 MEQ/L (136-145); TOTAL PROTEIN 6.2 GM/DL (6.4-8.2)
[2017-01-08 14:00] VITALS: BP 134/58
--- NOTE | 2017-01-08 14:13 | IPNPDOC ---
Text Note Date of Service The patient was seen on 01/08/17. NOTE Subjective: Patient is a 81-year-old female with a PMHx of Alzheimer's dementia, hypertension, diastolic heart failure, diabetes mellitus type 2, Chronic kidney disease stage III, asthma, primary hyperparathyroidism, iron deficiency anemia, vitamin D deficiency, Hyperplastic polyp, Pseudogout, Cervical radiculopathy, Cystocele, fatty liver disease. She presented to the ER found to be confused. Was admitted for acute metabolic encephalopathy and dehydration. Infectious source could not be found. Imaging revealed increase in liver mass size but as per patient and , didn't no biopsy was consented for until they discuss with their primary. Patient is currently DNR and DNI. Patient was found to have worsening productive cough and signs of fluid overload. CXR revealed she had a new infiltrate and was treated for CAP and received diurectis for diastolic CHF exacerbation. Patient was seen and examined. She was noted to be sitting up out of a chair beside her bed eating her meal. She did not appear tearful this morning. No family was present at the bedside. Patient denied any symptoms or events overnight. Denied any cough or burning with urination. Objective: Vitals (See below) General: Lying in bed, no acute distress, comfortable, AAOx3 HEENT: NC, AT CVS: RRR, +S1S2 Lungs: Fair air entry b/l, -w/r/r Abdomen: Soft, ND, NT, Extremities: - Edema, - Calf tenderness Assessment and plan: HTN -Blood pressure appears to be better controlled over the last 24 hours - c/w Bisoprolol, Ramipril, Hydralazine - s/p Clonidine 01/06, afternoon - c/w Anxiety control medications s/p Diastolic CHF exacerbation Bilateral infiltrates - likely 2/2 HCAP - Denies any cough at this time - Patient remains afebrile and physical does not reveal any rhonchi - s/p leukocytosis - CXR 01/07: Possible left lower lobe infiltrate/atelectasis - c/w Moxifloxacin (Day #7 of 10) s/p Acute metabolic encephalopathy - likely 2/2 dehydration, possibly 2/2 infectious etiology - 2/2 UTI, yeast infection, possibly 2/2 worsening dementia - AAOx3, No focal deficits noted - Recent history of UTI; was started on Nitrofurantoin outpatient and has completed course while inpatient - CT abdomen/pelvis 12/22: increased hepatic mass - currently ( healthcare proxy) does not want to pursue biopsy - CT head 12/22: No acute hemorrhage or infarct - s/p IV fluid hydration s/p Urinary tract infection (as an outpatient) and yeast infection - UA negative, however recent UTI on antibiotics as outpatient - s/p Nitrofurantoin (7 days) and Diflucan (7 days) Generalized Anxiety - c/w Alprazolam 0.25 q4h PRN - c/w Citalopram 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, less likely infectious - Cancer markers CA19-9, CA125, CEA negative; AFP pending - ANDI positive - Currently are not pursuing biopsy, as per family - Had discussion with about possibility of cancer, aware of risks and benefits of not getting a biopsy - Patient and family will discuss with their primary care provider and workup outside the hospital s/p Lower extremity weakness - possibly 2/2 decompensated state - c/w physical therapy; recommend home with services - not cleared currently DM2 - c/w ISS and Levemir 5 units s/p Acute kidney injury - Likely secondary to diuresis - Cr baseline of 1-1.1 - Cr noted to have improved from admission, however, it became elevated with Lasix, but has now normalized Dementia - c/w Donepezil RANDOLPH - c/w Ferrous sulfate Allergic rhinitis - c/w Fexofenadine DLP - c/w Pravastatin DVT prophylaxis - c/w Heparin Disposition: - Will continue to work with physical therapy and will look into placement options VS,Melindae, I+O VS, Fishbone, I+O Laboratory Tests 01/08/17 06:44 Calcium Level 8.9, Aspartate Amino Transf (AST/SGOT) 35, Alanine Aminotransferase (ALT/SGPT) 45, Alkaline Phosphatase 62, Total Bilirubin 0.4, Total Protein 6.2 L, Albumin 3.0 L 01/08/17 06:48 Red Blood Count 3.30 L, Mean Corpuscular Volume 104.5 H, Mean Corpuscular Hemoglobin 33.3 H, Mean Corpuscular Hemoglobin Concent 31.9 L, Red Cell Distribution Width 13.6, Neutrophils (%) (Auto) 56.1, Lymphocytes (%) (Auto) 26.5, Monocytes (%) (Auto) 14.9 H, Eosinophils (%) (Auto) 1.4, Basophils (%) ( Auto) 0.5, Neutrophils # (Auto) 4.9, Lymphocytes # (Auto) 2.3, Monocytes # (Auto ) 1.3 H, Eosinophils # (Auto) 0.1, Basophils # (Auto) 0.0 Vital Signs Date Time Temp Pulse Resp B/P (MAP) Pulse Ox O2 Delivery O2 Flow Rate FiO2 01/08/17 12:33 140/63 01/08/17 07:52 62 01/08/17 07:45 Room Air 01/08/17 06:00 98.1 15 97 I&O- Last 24 Hours up to 6 AM 01/09/17 06:00 Intake Total 150 ml Output Total 200 ml Balance -50 ml RESHMA GANDARA MD Jan 08, 2017 14:13
[2017-01-08] MEDS: MONTELUKAST 10 MG TAB PO SCH (17:29)
[2017-01-08] MEDS: PRAVASTATIN 20 MG TAB PO SCH (17:29)
[2017-01-08] MEDS: DONEPEZIL 5 MG TAB PO SCH (21:47)
[2017-01-08] MEDS: CitaloPRAM (CeleXA) 20 MG TAB PO SCH (21:47)
[2017-01-08] MEDS: ASPIRIN 81 MG ENTERIC TAB PO SCH (21:47)
[2017-01-08 22:00] VITALS: BP 155/80
[2017-01-09] MEDS: **hydrALAZINE HCL** 25 MG TAB PO SCH ×4 (00:14→18:07)
[2017-01-09] MEDS: NITROGLYCERIN 2% OINT 1 GM *U/D* PKT TOP SCH ×6 (00:14→20:00)
[2017-01-09] MEDS: ALPRAZolam 0.25 MG TAB PO PRN (02:11)
[2017-01-09] MEDS ORDERED: **hydrALAZINE** 10 MG TAB PO ONE (02:15)
[2017-01-09] MEDS: HEPARIN SOD (PORCINE) 5000 UNITS/ML VIAL SC SCH ×3 (05:15→20:46)
[2017-01-09] MEDS: MOXIFLOXACIN 400 MG TAB PO SCH (05:16)
[2017-01-09 05:56] LABS: BASO # 0.1 10^3/uL (0.0-0.2); BASO % 0.8 % (0.0-1.0); EOS # 0.1 10^3/uL (0.0-0.50); EOS % 1.3 % (0.0-3.0); IMMATURE GRANULOCYTE % 0.6 % (0-0); LYMPH # 2.4 10^3/uL (1.5-4.5); LYMPH % 26.1 % (24.0-44.0); MEAN CORPUSCULAR HEMOGLOBIN 32.9 pg (27.0-33.0); MEAN CORPUSCULAR HGB CONC 32.3 g/dl (32.0-36.5); MONO # 1.2 10^3/uL (0.0-0.8); MONO % 13.5 % (0.0-5.0); NEUTROPHILS # 5.2 10^3/uL (1.8-7.7); NEUTROPHILS % 57.7 % (36.0-66.0); PLATELET COUNT, AUTOMATED 581 10^3/uL (150-450); RED CELL DISTRIBUTION WIDTH 13.4 % (11.5-14.5)
[2017-01-09 06:00] VITALS: BP 148/72
[2017-01-09 06:27] LABS: ALBUMIN 2.9 GM/DL (3.2-5.2); ALBUMIN/GLOBULIN RATIO 0.74 (1.00-1.93); ALKALINE PHOSPHATASE 61 U/L (45-117); ALT/SGPT 47 U/L (12-78); ANION GAP 8 MEQ/L (8-16); AST/SGOT 42 U/L (7-37); BILIRUBIN,TOTAL 0.4 MG/DL (0.2-1.0); BLOOD UREA NITROGEN 13 MG/DL (7-18); CALCIUM LEVEL 9.3 MG/DL (8.8-10.2); CARBON DIOXIDE LEVEL 22 MEQ/L (21-32); CHLORIDE LEVEL 113 MEQ/L (98-107); CREATININE FOR GFR 0.89 MG/DL (0.55-1.02); GLOMERULAR FILTRATION RATE > 60.0 (>32); GLUCOSE, FASTING 152 MG/DL (83-110); MAGNESIUM LEVEL 2.1 MG/DL (1.8-2.4); POTASSIUM SERUM 3.6 MEQ/L (3.5-5.1); SODIUM LEVEL 143 MEQ/L (136-145); TOTAL PROTEIN 6.8 GM/DL (6.4-8.2)
[2017-01-09] MEDS: HumaLOG INSULIN (NovoLOG) PER UNIT SC SCH ×4 (09:10→20:44)
[2017-01-09] MEDS: LEVEMIR (INSULIN DETEMIR) 1 UNITS/0.01ML SC SCH ×2 (09:10→20:45)
--- NOTE | 2017-01-09 09:11 | IPNPDOC ---
Text Note Date of Service The patient was seen on 01/09/17. NOTE Subjective: Patient is a 81-year-old female with a PMHx of Alzheimer's dementia, hypertension, diastolic heart failure, diabetes mellitus type 2, Chronic kidney disease stage III, asthma, primary hyperparathyroidism, iron deficiency anemia, vitamin D deficiency, Hyperplastic polyp, Pseudogout, Cervical radiculopathy, Cystocele, fatty liver disease. She presented to the ER found to be confused. Was admitted for acute metabolic encephalopathy and dehydration. Infectious source could not be found. Imaging revealed increase in liver mass size but as per patient and , didn't no biopsy was consented for until they discuss with their primary. Patient is currently DNR and DNI. Patient was found to have worsening productive cough and signs of fluid overload. CXR revealed she had a new infiltrate and was treated for CAP and received diurectis for diastolic CHF exacerbation. Patient was seen and examined. Patient was sitting up in chair beside her bed, eating her meal. She denied any events overnight. She denied any abdominal pain or difficulty with urination. She did note that she's been having a mild cough. Objective: Vitals (See below) General: Lying in bed, no acute distress, comfortable, AAOx3 HEENT: NC, AT CVS: RRR, +S1S2 Lungs: Fair air entry b/l, -w/r/r Abdomen: Soft, ND, NT, Extremities: - Edema, - Calf tenderness Assessment and plan: HTN - Blood pressure remains better controlled, however, has been having episodes of pretenses, urgency throughout the night - c/w Bisoprolol, Ramipril, Hydralazine - Will add clonidine PM regimen - c/w Anxiety control medications s/p Diastolic CHF exacerbation Bilateral infiltrates - likely 2/2 HCAP - Reports a mild cough this morning - Patient remains afebrile and physical does not reveal any rhonchi - s/p leukocytosis - CXR 01/07: Possible left lower lobe infiltrate/atelectasis - c/w Moxifloxacin (Day #8 of 10) s/p Acute metabolic encephalopathy - likely 2/2 dehydration, possibly 2/2 infectious etiology - 2/2 UTI, yeast infection, possibly 2/2 worsening dementia - AAOx3, No focal deficits noted - Recent history of UTI; was started on Nitrofurantoin outpatient and has completed course while inpatient - CT abdomen/pelvis 12/22: increased hepatic mass - currently ( healthcare proxy) does not want to pursue biopsy - CT head 12/22: No acute hemorrhage or infarct - s/p IV fluid hydration s/p Urinary tract infection (as an outpatient) and yeast infection - UA negative, however recent UTI on antibiotics as outpatient - s/p Nitrofurantoin (7 days) and Diflucan (7 days) Generalized Anxiety - c/w Alprazolam 0.25 q4h PRN - c/w Citalopram - Will likely require benzodiazepines as an outpatient 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, less likely infectious - Cancer markers CA19-9, CA125, CEA negative; AFP pending - ANDI positive - Currently are not pursuing biopsy, as per family - Had discussion with about possibility of cancer, aware of risks and benefits of not getting a biopsy - Patient and family will discuss with their primary care provider and workup outside the hospital s/p Lower extremity weakness - possibly 2/2 decompensated state - c/w physical therapy; recommend home with services - not cleared currently DM2 - c/w ISS and Levemir 5 units s/p Acute kidney injury - Likely secondary to diuresis - Cr baseline of 1-1.1 - Cr noted to have improved from admission, however, it became elevated with Lasix, but has now normalized Dementia - c/w Donepezil RANDOLPH - c/w Ferrous sulfate Allergic rhinitis - c/w Fexofenadine DLP - c/w Pravastatin DVT prophylaxis - c/w Heparin Disposition: - Infection appears to be resolving. Will focus on physical therapy with disposition in mind Mac RAMÍREZ, I+O Mac RAMÍREZ, I+O Laboratory Tests 01/09/17 05:37 Red Blood Count 3.43 L, Mean Corpuscular Volume 102.0 H, Mean Corpuscular Hemoglobin 32.9, Mean Corpuscular Hemoglobin Concent 32.3, Red Cell Distribution Width 13.4, Neutrophils (%) (Auto) 57.7, Lymphocytes (%) (Auto) 26.1, Monocytes (%) (Auto) 13.5 H, Eosinophils (%) (Auto) 1.3, Basophils (%) ( Auto) 0.8, Neutrophils # (Auto) 5.2, Lymphocytes # (Auto) 2.4, Monocytes # (Auto ) 1.2 H, Eosinophils # (Auto) 0.1, Basophils # (Auto) 0.1, Calcium Level 9.3, Aspartate Amino Transf (AST/SGOT) 42 H, Alanine Aminotransferase (ALT/SGPT) 47, Alkaline Phosphatase 61, Total Bilirubin 0.4, Total Protein 6.8, Albumin 2.9 L Vital Signs Date Time Temp Pulse Resp B/P (MAP) Pulse Ox O2 Delivery O2 Flow Rate FiO2 01/09/17 06:00 98.0 61 17 148/72 (97) 95 Room Air RESHMA GANDARA MD Jan 09, 2017 09:11
[2017-01-09] MEDS: FERROUS SULFATE 325MG TAB PO SCH (09:12)
[2017-01-09] MEDS: MULTIVITAMINS/MINERALS THERAP 1 TAB PO SCH (09:12)
[2017-01-09] MEDS: ISOSORBIDE MON. (IMDUR) 60 MG XR TAB PO SCH (09:12)
[2017-01-09] MEDS: MEGESTROL ES SUSP 625 MG/5 ML UDC PO SCH (09:12)
[2017-01-09] MEDS: BISOPROLOL FUMARATE 10 MG TAB PO SCH (09:12)
[2017-01-09 14:00] VITALS: BP 120/54
[2017-01-09] MEDS: MONTELUKAST 10 MG TAB PO SCH (18:06)
[2017-01-09] MEDS: PRAVASTATIN 20 MG TAB PO SCH (18:06)
[2017-01-09] MEDS: ASPIRIN 81 MG ENTERIC TAB PO SCH (20:42)
[2017-01-09] MEDS: DONEPEZIL 5 MG TAB PO SCH (20:42)
[2017-01-09] MEDS: cloNIDine 0.1 MG TAB PO SCH (20:43)
[2017-01-09] MEDS: CitaloPRAM (CeleXA) 20 MG TAB PO SCH (20:43)
[2017-01-09 22:00] VITALS: BP 118/52
[2017-01-10] MEDS: **hydrALAZINE HCL** 25 MG TAB PO SCH ×4 (00:43→17:30)
[2017-01-10] MEDS: NITROGLYCERIN 2% OINT 1 GM *U/D* PKT TOP SCH ×6 (04:00→20:00)
[2017-01-10 05:55] LABS: BASO # 0.1 10^3/uL (0.0-0.2); EOS # 0.2 10^3/uL (0.0-0.50); IMMATURE GRANULOCYTE % 0.7 % (0-0); LYMPH # 2.4 10^3/uL (1.5-4.5); LYMPH % 26.3 % (24.0-44.0); MEAN CORPUSCULAR HEMOGLOBIN 33.1 pg (27.0-33.0); MEAN CORPUSCULAR HGB CONC 32.5 g/dl (32.0-36.5); MEAN CORPUSCULAR VOLUME 101.9 fl (80.0-96.0); MONO # 1.2 10^3/uL (0.0-0.8); MONO % 13.5 % (0.0-5.0); NEUTROPHILS # 5.1 10^3/uL (1.8-7.7); NEUTROPHILS % 56.5 % (36.0-66.0); PLATELET COUNT, AUTOMATED 552 10^3/uL (150-450); RED CELL DISTRIBUTION WIDTH 13.7 % (11.5-14.5)
[2017-01-10 06:00] VITALS: BP 136/90
[2017-01-10] MEDS: MOXIFLOXACIN 400 MG TAB PO SCH (06:16)
[2017-01-10] MEDS: HEPARIN SOD (PORCINE) 5000 UNITS/ML VIAL SC SCH ×3 (06:17→22:20)
[2017-01-10 06:23] LABS: ALBUMIN 2.6 GM/DL (3.2-5.2); ALBUMIN/GLOBULIN RATIO 0.72 (1.00-1.93); ALKALINE PHOSPHATASE 53 U/L (45-117); ALT/SGPT 45 U/L (12-78); ANION GAP 10 MEQ/L (8-16); AST/SGOT 35 U/L (7-37); BILIRUBIN,TOTAL 0.4 MG/DL (0.2-1.0); BLOOD UREA NITROGEN 17 MG/DL (7-18); CALCIUM LEVEL 8.8 MG/DL (8.8-10.2); CARBON DIOXIDE LEVEL 19 MEQ/L (21-32); CHLORIDE LEVEL 113 MEQ/L (98-107); CREATININE FOR GFR 0.93 MG/DL (0.55-1.02); GLOMERULAR FILTRATION RATE > 60.0 (>32); GLUCOSE, FASTING 158 MG/DL (83-110); MAGNESIUM LEVEL 2.1 MG/DL (1.8-2.4); POTASSIUM SERUM 3.7 MEQ/L (3.5-5.1); SODIUM LEVEL 142 MEQ/L (136-145); TOTAL PROTEIN 6.2 GM/DL (6.4-8.2)
[2017-01-10] MEDS: MEGESTROL ES SUSP 625 MG/5 ML UDC PO SCH (09:37)
--- NOTE | 2017-01-10 09:37 | IPNPDOC ---
Text Note Date of Service The patient was seen on 01/10/17. NOTE Subjective: Patient is a 81-year-old female with a PMHx of Alzheimer's dementia, hypertension, diastolic heart failure, diabetes mellitus type 2, Chronic kidney disease stage III, asthma, primary hyperparathyroidism, iron deficiency anemia, vitamin D deficiency, Hyperplastic polyp, Pseudogout, Cervical radiculopathy, Cystocele, fatty liver disease. She presented to the ER found to be confused. Was admitted for acute metabolic encephalopathy and dehydration. Infectious source could not be found. Imaging revealed increase in liver mass size but as per patient and , didn't no biopsy was consented for until they discuss with their primary. Patient is currently DNR and DNI. Patient was found to have worsening productive cough and signs of fluid overload. CXR revealed she had a new infiltrate and was treated for CAP and received diuresis for diastolic CHF exacerbation. Patient was seen and examined. She is sitting up in bed with tray at her bedside. Physical therapy was present in the room. Patient denied any events overnight. No acute concerns this morning. Patient did appear tearful this morning. Objective: Vitals (See below) General: Lying in bed, no acute distress, comfortable, AAOx3 HEENT: NC, AT CVS: RRR, +S1S2 Lungs: Fair air entry b/l, -w/r/r Abdomen: Soft, ND, NT, Extremities: - Edema, - Calf tenderness Assessment and plan: HTN - Blood pressure well controlled. Over last 48 hours - c/w Bisoprolol, Ramipril, Hydralazine, and clonidine PM - c/w Anxiety control medications s/p Diastolic CHF exacerbation Bilateral infiltrates - likely 2/2 HCAP - Reports a mild cough this morning - Patient remains afebrile and physical does not reveal any rhonchi - s/p leukocytosis - CXR 01/07: Possible left lower lobe infiltrate/atelectasis - c/w Moxifloxacin (Day #9 of 10) Abnormal urine - possibly 2/2 recurrent UTI - s/p Urinary tract infection earlier this admission and yeast infection - UA negative on admission however recent UTI on antibiotics as outpatient - s/p Nitrofurantoin (7 days) and Diflucan (7 days) - UA 01/09: Consistent with urinary tract infection - Urine culture 01/09: pending s/p Acute metabolic encephalopathy - likely 2/2 dehydration, possibly 2/2 infectious etiology - 2/2 UTI, yeast infection, possibly 2/2 worsening dementia - AAOx3, No focal deficits noted - Recent history of UTI; was started on Nitrofurantoin outpatient and has completed course while inpatient - CT abdomen/pelvis 12/22: increased hepatic mass - currently ( healthcare proxy) does not want to pursue biopsy - CT head 12/22: No acute hemorrhage or infarct - s/p IV fluid hydration Generalized Anxiety - c/w Alprazolam 0.25 q4h PRN - c/w Citalopram 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, less likely infectious - Cancer markers CA19-9, CA125, CEA negative; ANDI positive - Currently are not pursuing biopsy, as per family; discussed with family; aware of risks / benefits s/p Lower extremity weakness - possibly 2/2 decompensated state - c/w physical therapy DM2 - c/w ISS and Levemir 5 units s/p Acute kidney injury - Likely secondary to diuresis / dehydration - Cr baseline of 1-1.1 Dementia - c/w Donepezil RANDOLPH - c/w Ferrous sulfate Allergic rhinitis - c/w Fexofenadine DLP - c/w Pravastatin DVT prophylaxis - c/w Heparin Disposition: - f/u Urine culture - c/w PT VS,Fishbone, I+O VS, Fishbone, I+O Laboratory Tests 01/10/17 05:33 Red Blood Count 3.20 L, Mean Corpuscular Volume 101.9 H, Mean Corpuscular Hemoglobin 33.1 H, Mean Corpuscular Hemoglobin Concent 32.5, Red Cell Distribution Width 13.7, Neutrophils (%) (Auto) 56.5, Lymphocytes (%) (Auto) 26.3, Monocytes (%) (Auto) 13.5 H, Eosinophils (%) (Auto) 2.0, Basophils (%) ( Auto) 1.0, Neutrophils # (Auto) 5.1, Lymphocytes # (Auto) 2.4, Monocytes # (Auto ) 1.2 H, Eosinophils # (Auto) 0.2, Basophils # (Auto) 0.1, Calcium Level 8.8, Aspartate Amino Transf (AST/SGOT) 35, Alanine Aminotransferase (ALT/SGPT) 45, Alkaline Phosphatase 53, Total Bilirubin 0.4, Total Protein 6.2 L, Albumin 2.6 L Vital Signs Date Time Temp Pulse Resp B/P (MAP) Pulse Ox O2 Delivery O2 Flow Rate FiO2 01/10/17 06:16 136/90 01/10/17 06:00 98.0 56 18 97 Room Air I&O- Last 24 Hours up to 6 AM 01/11/17 06:00 Intake Total 0 ml Output Total 0 ml Balance 0 ml RESHMA GANDARA MD Jan 10, 2017 09:37
[2017-01-10] MEDS: HumaLOG INSULIN (NovoLOG) PER UNIT SC SCH ×4 (09:38→21:00)
[2017-01-10] MEDS: LEVEMIR (INSULIN DETEMIR) 1 UNITS/0.01ML SC SCH ×2 (09:39→21:00)
[2017-01-10] MEDS: FERROUS SULFATE 325MG TAB PO SCH (09:41)
[2017-01-10] MEDS: BISOPROLOL FUMARATE 10 MG TAB PO SCH (09:41)
[2017-01-10] MEDS: ISOSORBIDE MON. (IMDUR) 60 MG XR TAB PO SCH (09:41)
[2017-01-10] MEDS: MULTIVITAMINS/MINERALS THERAP 1 TAB PO SCH (09:41)
[2017-01-10 11:00] VITALS: BP 135/69
[2017-01-10 14:00] VITALS: BP 130/52
[2017-01-10] MEDS: MONTELUKAST 10 MG TAB PO SCH (17:29)
[2017-01-10] MEDS: PRAVASTATIN 20 MG TAB PO SCH (17:29)
[2017-01-10 20:00] VITALS: BP 138/62
[2017-01-10] MEDS: cloNIDine 0.1 MG TAB PO SCH (22:18)
[2017-01-10] MEDS: CitaloPRAM (CeleXA) 20 MG TAB PO SCH (22:18)
[2017-01-10] MEDS: DONEPEZIL 5 MG TAB PO SCH (22:18)
[2017-01-10] MEDS: ASPIRIN 81 MG ENTERIC TAB PO SCH (22:18)
[2017-01-11 00:23] VITALS: BP 122/70
[2017-01-11] MEDS: **hydrALAZINE HCL** 25 MG TAB PO SCH ×4 (00:28→18:42)
[2017-01-11] MEDS: ACETAMINOPHEN TAB 650MG DOSE (2X325MG) PO PRN (02:27)
[2017-01-11] MEDS: NITROGLYCERIN 2% OINT 1 GM *U/D* PKT TOP SCH ×6 (04:00→20:32)
[2017-01-11 06:00] VITALS: BP 130/68
[2017-01-11 06:06] LABS: BASO # 0.1 10^3/uL (0.0-0.2); BASO % 1.1 % (0.0-1.0); EOS # 0.2 10^3/uL (0.0-0.50); EOS % 2.2 % (0.0-3.0); IMMATURE GRANULOCYTE % 0.7 % (0-0); LYMPH # 2.4 10^3/uL (1.5-4.5); LYMPH % 27.9 % (24.0-44.0); MEAN CORPUSCULAR HGB CONC 32.3 g/dl (32.0-36.5); MEAN CORPUSCULAR VOLUME 102.3 fl (80.0-96.0); MONO # 1.1 10^3/uL (0.0-0.8); MONO % 12.8 % (0.0-5.0); NEUTROPHILS # 4.7 10^3/uL (1.8-7.7); NEUTROPHILS % 55.3 % (36.0-66.0); PLATELET COUNT, AUTOMATED 506 10^3/uL (150-450); RED CELL DISTRIBUTION WIDTH 13.8 % (11.5-14.5); WHITE BLOOD COUNT 8.6 10^3/uL (4.0-10.0)
[2017-01-11] MEDS: MOXIFLOXACIN 400 MG TAB PO SCH (06:12)
[2017-01-11] MEDS: HEPARIN SOD (PORCINE) 5000 UNITS/ML VIAL SC SCH ×3 (06:13→21:54)
[2017-01-11 06:30] LABS: ALBUMIN 2.7 GM/DL (3.2-5.2); ALBUMIN/GLOBULIN RATIO 0.96 (1.00-1.93); ALKALINE PHOSPHATASE 50 U/L (45-117); ALT/SGPT 42 U/L (12-78); ANION GAP 10 MEQ/L (8-16); AST/SGOT 25 U/L (7-37); BILIRUBIN,TOTAL 0.3 MG/DL (0.2-1.0); BLOOD UREA NITROGEN 15 MG/DL (7-18); CALCIUM LEVEL 8.9 MG/DL (8.8-10.2); CARBON DIOXIDE LEVEL 19 MEQ/L (21-32); CHLORIDE LEVEL 111 MEQ/L (98-107); GLOMERULAR FILTRATION RATE > 60.0 (>32); GLUCOSE, FASTING 147 MG/DL (83-110); MAGNESIUM LEVEL 2.1 MG/DL (1.8-2.4); POTASSIUM SERUM 4.1 MEQ/L (3.5-5.1); SODIUM LEVEL 140 MEQ/L (136-145); TOTAL PROTEIN 5.5 GM/DL (6.4-8.2)
[2017-01-11] MEDS: BISOPROLOL FUMARATE 10 MG TAB PO SCH (09:00)
[2017-01-11] MEDS: LEVEMIR (INSULIN DETEMIR) 1 UNITS/0.01ML SC SCH ×2 (09:15→21:54)
[2017-01-11] MEDS: HumaLOG INSULIN (NovoLOG) PER UNIT SC SCH ×4 (09:15→21:00)
[2017-01-11] MEDS: MULTIVITAMINS/MINERALS THERAP 1 TAB PO SCH (09:16)
[2017-01-11] MEDS: MEGESTROL ES SUSP 625 MG/5 ML UDC PO SCH (09:16)
[2017-01-11] MEDS: FERROUS SULFATE 325MG TAB PO SCH (09:16)
[2017-01-11] MEDS: ISOSORBIDE MON. (IMDUR) 60 MG XR TAB PO SCH (09:18)
[2017-01-11 14:00] VITALS: BP 136/61
--- NOTE | 2017-01-11 14:19 | IPNPDOC ---
Text Note Date of Service The patient was seen on 01/11/17. NOTE Subjective: Patient is a 81-year-old female with a PMHx of Alzheimer's dementia, hypertension, diastolic heart failure, diabetes mellitus type 2, Chronic kidney disease stage III, asthma, primary hyperparathyroidism, iron deficiency anemia, vitamin D deficiency, Hyperplastic polyp, Pseudogout, Cervical radiculopathy, Cystocele, fatty liver disease. She presented to the ER found to be confused. Was admitted for acute metabolic encephalopathy and dehydration. Infectious source could not be found. Imaging revealed increase in liver mass size but as per patient and , didn't no biopsy was consented for until they discuss with their primary. Patient is currently DNR and DNI. Patient was found to have worsening productive cough and signs of fluid overload. CXR revealed she had a new infiltrate and was treated for CAP and received diuresis for diastolic CHF exacerbation. Patient was seen and examined. She denied any problems overnight. Denies any shortness of breath, cough, palpitations, chest pain, abdominal pain, constipation, diarrhea, or burning with urination. Objective: Vitals (See below) General: Lying in bed, no acute distress, comfortable, AAOx3 HEENT: NC, AT CVS: RRR, +S1S2 Lungs: Fair air entry b/l, -w/r/r Abdomen: Soft, ND, NT, Extremities: - Edema, - Calf tenderness Assessment and plan: HTN - Blood pressure well controlled. Over last 48 hours - c/w Bisoprolol, Ramipril, Hydralazine, and clonidine PM - c/w Anxiety control medications s/p Diastolic CHF exacerbation Bilateral infiltrates - likely 2/2 HCAP - Reports a mild cough this morning - Patient remains afebrile and physical does not reveal any rhonchi - s/p leukocytosis - CXR 01/07: Possible left lower lobe infiltrate/atelectasis - s/p Moxifloxacin (10 day course completed) Abnormal urine - possibly 2/2 recurrent UTI - s/p Urinary tract infection earlier this admission and yeast infection - UA negative on admission however recent UTI on antibiotics as outpatient - s/p Nitrofurantoin (7 days) and Diflucan (7 days) - UA 01/09: Consistent with urinary tract infection - Urine culture 01/09: Still remains pending s/p Acute metabolic encephalopathy - likely 2/2 dehydration, possibly 2/2 infectious etiology - 2/2 UTI, yeast infection, possibly 2/2 worsening dementia - AAOx3, No focal deficits noted - Recent history of UTI; was started on Nitrofurantoin outpatient and has completed course while inpatient - CT abdomen/pelvis 12/22: increased hepatic mass - currently ( healthcare proxy) does not want to pursue biopsy - CT head 12/22: No acute hemorrhage or infarct - s/p IV fluid hydration Generalized Anxiety - c/w Alprazolam 0.25 q4h PRN - c/w Citalopram 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, less likely infectious - Cancer markers CA19-9, CA125, CEA negative; ANDI positive - Currently are not pursuing biopsy, as per family; discussed with family; aware of risks / benefits s/p Lower extremity weakness - possibly 2/2 decompensated state - c/w physical therapy DM2 - c/w ISS and Levemir 5 units s/p Acute kidney injury - Likely secondary to diuresis / dehydration - Cr baseline of 1-1.1 Dementia - c/w Donepezil RANDOLPH - c/w Ferrous sulfate Allergic rhinitis - c/w Fexofenadine DLP - c/w Pravastatin DVT prophylaxis - c/w Heparin Disposition: - f/u Urine culture - c/w PT VS,Fishbone, I+O VS, Fishbone, I+O Laboratory Tests 01/11/17 05:29 Red Blood Count 3.03 L, Mean Corpuscular Volume 102.3 H, Mean Corpuscular Hemoglobin 33.0, Mean Corpuscular Hemoglobin Concent 32.3, Red Cell Distribution Width 13.8, Neutrophils (%) (Auto) 55.3, Lymphocytes (%) (Auto) 27.9, Monocytes (%) (Auto) 12.8 H, Eosinophils (%) (Auto) 2.2, Basophils (%) ( Auto) 1.1 H, Neutrophils # (Auto) 4.7, Lymphocytes # (Auto) 2.4, Monocytes # ( Auto) 1.1 H, Eosinophils # (Auto) 0.2, Basophils # (Auto) 0.1, Calcium Level 8.9 , Aspartate Amino Transf (AST/SGOT) 25, Alanine Aminotransferase (ALT/SGPT) 42, Alkaline Phosphatase 50, Total Bilirubin 0.3, Total Protein 5.5 L, Albumin 2.7 L Vital Signs Date Time Temp Pulse Resp B/P (MAP) Pulse Ox O2 Delivery O2 Flow Rate FiO2 01/11/17 12:00 112/58 01/11/17 09:00 58 01/11/17 06:00 99.9 18 96 Room Air I&O- Last 24 Hours up to 6 AM 01/12/17 06:00 Intake Total 240 ml Output Total 200 ml Balance 40 ml RESHMA GANDARA MD Jan 11, 2017 14:19
[2017-01-11] MEDS: PRAVASTATIN 20 MG TAB PO SCH (18:41)
[2017-01-11] MEDS: MONTELUKAST 10 MG TAB PO SCH (18:41)
[2017-01-11] MEDS: DONEPEZIL 5 MG TAB PO SCH (20:32)
[2017-01-11] MEDS: CitaloPRAM (CeleXA) 20 MG TAB PO SCH (20:33)
[2017-01-11] MEDS: ASPIRIN 81 MG ENTERIC TAB PO SCH (20:33)
[2017-01-11] MEDS: cloNIDine 0.1 MG TAB PO SCH (20:33)
[2017-01-11 22:00] VITALS: BP 138/64
[2017-01-12] MEDS: **hydrALAZINE HCL** 25 MG TAB PO SCH ×4 (00:06→17:21)
[2017-01-12] MEDS: NITROGLYCERIN 2% OINT 1 GM *U/D* PKT TOP SCH ×6 (00:06→20:21)
[2017-01-12] MEDS: ACETAMINOPHEN TAB 650MG DOSE (2X325MG) PO PRN ×2 (03:07→13:02)
[2017-01-12] MEDS: HEPARIN SOD (PORCINE) 5000 UNITS/ML VIAL SC SCH ×3 (05:18→22:15)
[2017-01-12 06:00] VITALS: BP 140/62
[2017-01-12 06:05] LABS: BASO # 0.1 10^3/uL (0.0-0.2); BASO % 0.9 % (0.0-1.0); EOS # 0.2 10^3/uL (0.0-0.50); EOS % 1.8 % (0.0-3.0); IMMATURE GRANULOCYTE % 1.2 % (0-0); LYMPH # 2.4 10^3/uL (1.5-4.5); LYMPH % 26.6 % (24.0-44.0); MEAN CORPUSCULAR HEMOGLOBIN 33.6 pg (27.0-33.0); MEAN CORPUSCULAR HGB CONC 32.9 g/dl (32.0-36.5); MEAN CORPUSCULAR VOLUME 102.2 fl (80.0-96.0); MONO # 1.2 10^3/uL (0.0-0.8); MONO % 12.9 % (0.0-5.0); NEUTROPHILS # 5.2 10^3/uL (1.8-7.7); NEUTROPHILS % 56.6 % (36.0-66.0); PLATELET COUNT, AUTOMATED 494 10^3/uL (150-450); RED CELL DISTRIBUTION WIDTH 13.7 % (11.5-14.5); WHITE BLOOD COUNT 9.2 10^3/uL (4.0-10.0)
[2017-01-12 06:20] LABS: ALBUMIN 2.7 GM/DL (3.2-5.2); ALBUMIN/GLOBULIN RATIO 0.73 (1.00-1.93); ALKALINE PHOSPHATASE 57 U/L (45-117); ALT/SGPT 45 U/L (12-78); ANION GAP 11 MEQ/L (8-16); AST/SGOT 31 U/L (7-37); BILIRUBIN,TOTAL 0.3 MG/DL (0.2-1.0); BLOOD UREA NITROGEN 14 MG/DL (7-18); CALCIUM LEVEL 9.3 MG/DL (8.8-10.2); CARBON DIOXIDE LEVEL 16 MEQ/L (21-32); CHLORIDE LEVEL 110 MEQ/L (98-107); CREATININE FOR GFR 0.82 MG/DL (0.55-1.02); GLOMERULAR FILTRATION RATE > 60.0 (>32); GLUCOSE, FASTING 160 MG/DL (83-110); MAGNESIUM LEVEL 2.1 MG/DL (1.8-2.4); SODIUM LEVEL 137 MEQ/L (136-145); TOTAL PROTEIN 6.4 GM/DL (6.4-8.2)
[2017-01-12] MEDS: LEVEMIR (INSULIN DETEMIR) 1 UNITS/0.01ML SC SCH ×2 (09:00→21:00)
[2017-01-12] MEDS: NITROFURANTOIN (MACROBID) 100 MG CAP PO SCH ×2 (09:00→20:22)
[2017-01-12] MEDS: ISOSORBIDE MON. (IMDUR) 60 MG XR TAB PO SCH (09:55)
[2017-01-12] MEDS: MULTIVITAMINS/MINERALS THERAP 1 TAB PO SCH (09:55)
[2017-01-12] MEDS: BISOPROLOL FUMARATE 10 MG TAB PO SCH (09:57)
[2017-01-12] MEDS: FERROUS SULFATE 325MG TAB PO SCH (09:57)
[2017-01-12] MEDS: MEGESTROL ES SUSP 625 MG/5 ML UDC PO SCH (09:57)
[2017-01-12] MEDS: HumaLOG INSULIN (NovoLOG) PER UNIT SC SCH ×4 (09:58→21:00)
[2017-01-12 13:30] VITALS: BP 130/60
--- NOTE | 2017-01-12 13:36 | IPNPDOC ---
Text Note Date of Service The patient was seen on 01/12/17. NOTE Subjective: Patient is a 81-year-old female with a PMHx of Alzheimer's dementia, hypertension, diastolic heart failure, diabetes mellitus type 2, Chronic kidney disease stage III, asthma, primary hyperparathyroidism, iron deficiency anemia, vitamin D deficiency, Hyperplastic polyp, Pseudogout, Cervical radiculopathy, Cystocele, fatty liver disease. She presented to the ER found to be confused. Was admitted for acute metabolic encephalopathy and dehydration. Infectious source could not be found. Imaging revealed increase in liver mass size but as per patient and , didn't no biopsy was consented for until they discuss with their primary. Patient is currently DNR and DNI. Patient was found to have worsening productive cough and signs of fluid overload. CXR revealed she had a new infiltrate and was treated for CAP and received diuresis for diastolic CHF exacerbation. Patient was seen and examined at bedside. She denies any new complaints this morning. No events overnight. Is currently resting in bed comfortably Objective: Vitals (See below) General: Lying in bed, no acute distress, comfortable, AAOx3 HEENT: NC, AT CVS: RRR, +S1S2 Lungs: Fair air entry b/l, -w/r/r Abdomen: Soft, ND, NT, Extremities: - Edema, - Calf tenderness Assessment and plan: HTN - Blood pressure well controlled. Over last 48 hours - c/w Bisoprolol, Ramipril, Hydralazine, and clonidine PM - c/w Anxiety control medications s/p Diastolic CHF exacerbation Abnormal urine - possibly 2/2 recurrent UTI - s/p Urinary tract infection earlier this admission and yeast infection - UA negative on admission however recent UTI on antibiotics as outpatient - s/p Nitrofurantoin (7 days) and Diflucan (7 days) - UA 01/09: Consistent with urinary tract infection - Urine culture 01/09: E. coli - Will restart Nitrofurantoin BID (Day #1) s/p Bilateral infiltrates - likely 2/2 HCAP - Reports a mild cough this morning - Patient remains afebrile and physical does not reveal any rhonchi - s/p leukocytosis - CXR 01/07: Possible left lower lobe infiltrate/atelectasis - s/p Moxifloxacin (10 day course completed) s/p Acute metabolic encephalopathy - likely 2/2 dehydration, possibly 2/2 infectious etiology - 2/2 UTI, yeast infection, possibly 2/2 worsening dementia - AAOx3, No focal deficits noted - Recent history of UTI; was started on Nitrofurantoin outpatient and has completed course while inpatient - CT abdomen/pelvis 12/22: increased hepatic mass - currently ( healthcare proxy) does not want to pursue biopsy - CT head 12/22: No acute hemorrhage or infarct - s/p IV fluid hydration Generalized Anxiety - c/w Alprazolam 0.25 q4h PRN - c/w Citalopram 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, less likely infectious - Cancer markers CA19-9, CA125, CEA negative; ANDI positive - Currently are not pursuing biopsy, as per family; discussed with family; aware of risks / benefits s/p Lower extremity weakness - possibly 2/2 decompensated state - c/w physical therapy DM2 - c/w ISS and Levemir 5 units s/p Acute kidney injury - Likely secondary to diuresis / dehydration - Cr baseline of 1-1.1 Dementia - c/w Donepezil RANDOLPH - c/w Ferrous sulfate Allergic rhinitis - c/w Fexofenadine DLP - c/w Pravastatin DVT prophylaxis - c/w Heparin Disposition: - c/w Nitrofurantoin PO (re: many allergies / resistance) - c/w PT VS,Fishbone, I+O VS, Fishbone, I+O Laboratory Tests 01/12/17 05:43 Red Blood Count 3.21 L, Mean Corpuscular Volume 102.2 H, Mean Corpuscular Hemoglobin 33.6 H, Mean Corpuscular Hemoglobin Concent 32.9, Red Cell Distribution Width 13.7, Neutrophils (%) (Auto) 56.6, Lymphocytes (%) (Auto) 26.6, Monocytes (%) (Auto) 12.9 H, Eosinophils (%) (Auto) 1.8, Basophils (%) ( Auto) 0.9, Neutrophils # (Auto) 5.2, Lymphocytes # (Auto) 2.4, Monocytes # (Auto ) 1.2 H, Eosinophils # (Auto) 0.2, Basophils # (Auto) 0.1, Calcium Level 9.3, Aspartate Amino Transf (AST/SGOT) 31, Alanine Aminotransferase (ALT/SGPT) 45, Alkaline Phosphatase 57, Total Bilirubin 0.3, Total Protein 6.4, Albumin 2.7 L Vital Signs Date Time Temp Pulse Resp B/P (MAP) Pulse Ox O2 Delivery O2 Flow Rate FiO2 01/12/17 13:09 130/80 01/12/17 09:57 60 01/12/17 06:00 98.2 18 98 Room Air I&O- Last 24 Hours up to 6 AM 01/13/17 06:00 Intake Total 60 ml Output Total 200 ml Balance -140 ml RESHMA GANDARA MD Jan 12, 2017 13:36
[2017-01-12] MEDS ORDERED: MIRALAX *UNIT DOSE* 17GM PACKET PO PRN (16:45)
[2017-01-12] MEDS ORDERED: BISACODYL 10 MG SUPP PR ONE (16:45)
[2017-01-12] MEDS: MONTELUKAST 10 MG TAB PO SCH (17:17)
[2017-01-12] MEDS: PRAVASTATIN 20 MG TAB PO SCH (17:18)
[2017-01-12] MEDS: DONEPEZIL 5 MG TAB PO SCH (20:20)
[2017-01-12] MEDS: cloNIDine 0.1 MG TAB PO SCH (20:21)
[2017-01-12] MEDS: SENOKOT S TAB PO SCH (20:22)
[2017-01-12] MEDS: ASPIRIN 81 MG ENTERIC TAB PO SCH (20:22)
[2017-01-12] MEDS: CitaloPRAM (CeleXA) 20 MG TAB PO SCH (20:22)
[2017-01-12 22:00] VITALS: BP 142/66
[2017-01-13] MEDS: NITROGLYCERIN 2% OINT 1 GM *U/D* PKT TOP SCH ×6 (00:22→21:26)
[2017-01-13] MEDS: **hydrALAZINE HCL** 25 MG TAB PO SCH ×4 (00:22→17:24)
[2017-01-13] MEDS: HEPARIN SOD (PORCINE) 5000 UNITS/ML VIAL SC SCH ×3 (05:27→21:28)
[2017-01-13 06:00] VITALS: BP 150/79
[2017-01-13 06:45] LABS: BASO # 0.1 10^3/uL (0.0-0.2); BASO % 0.6 % (0.0-1.0); EOS # 0.1 10^3/uL (0.0-0.50); EOS % 0.4 % (0.0-3.0); IMMATURE GRANULOCYTE % 0.9 % (0-0); LYMPH # 1.4 10^3/uL (1.5-4.5); LYMPH % 9.7 % (24.0-44.0); MEAN CORPUSCULAR HEMOGLOBIN 33.5 pg (27.0-33.0); MEAN CORPUSCULAR HGB CONC 32.9 g/dl (32.0-36.5); MEAN CORPUSCULAR VOLUME 101.8 fl (80.0-96.0); MONO # 1.6 10^3/uL (0.0-0.8); MONO % 10.6 % (0.0-5.0); NEUTROPHILS # 11.4 10^3/uL (1.8-7.7); NEUTROPHILS % 77.8 % (36.0-66.0); PLATELET COUNT, AUTOMATED 494 10^3/uL (150-450); WHITE BLOOD COUNT 14.6 10^3/uL (4.0-10.0)
[2017-01-13 07:08] LABS: ALBUMIN 2.9 GM/DL (3.2-5.2); ALBUMIN/GLOBULIN RATIO 0.91 (1.00-1.93); ALKALINE PHOSPHATASE 56 U/L (45-117); ALT/SGPT 46 U/L (12-78); ANION GAP 12 MEQ/L (8-16); AST/SGOT 28 U/L (7-37); BILIRUBIN,TOTAL 0.6 MG/DL (0.2-1.0); BLOOD UREA NITROGEN 12 MG/DL (7-18); CALCIUM LEVEL 9.4 MG/DL (8.8-10.2); CARBON DIOXIDE LEVEL 17 MEQ/L (21-32); CHLORIDE LEVEL 109 MEQ/L (98-107); CREATININE FOR GFR 0.78 MG/DL (0.55-1.02); GLOMERULAR FILTRATION RATE > 60.0 (>32); GLUCOSE, FASTING 162 MG/DL (83-110); POTASSIUM SERUM 4.1 MEQ/L (3.5-5.1); SODIUM LEVEL 138 MEQ/L (136-145); TOTAL PROTEIN 6.1 GM/DL (6.4-8.2)
[2017-01-13] MEDS: MEGESTROL ES SUSP 625 MG/5 ML UDC PO SCH (08:12)
[2017-01-13] MEDS: HumaLOG INSULIN (NovoLOG) PER UNIT SC SCH ×4 (08:13→21:00)
[2017-01-13] MEDS: SENOKOT S TAB PO SCH ×2 (08:15→21:25)
[2017-01-13] MEDS: BISOPROLOL FUMARATE 10 MG TAB PO SCH (08:15)
[2017-01-13] MEDS: NITROFURANTOIN (MACROBID) 100 MG CAP PO SCH (08:15)
[2017-01-13] MEDS: MULTIVITAMINS/MINERALS THERAP 1 TAB PO SCH (08:16)
[2017-01-13] MEDS: FERROUS SULFATE 325MG TAB PO SCH (08:16)
[2017-01-13] MEDS: ISOSORBIDE MON. (IMDUR) 60 MG XR TAB PO SCH (08:16)
[2017-01-13] MEDS: LEVEMIR (INSULIN DETEMIR) 1 UNITS/0.01ML SC SCH ×2 (08:17→21:00)
[2017-01-13] MEDS ORDERED: FOSFOMYCIN TROMETHAMINE 3 GM POWDER PACKET (MONUROL) PO ONE (13:30)
[2017-01-13 14:00] VITALS: BP 138/68
[2017-01-13] MEDS: PRAVASTATIN 20 MG TAB PO SCH (17:24)
[2017-01-13] MEDS: MONTELUKAST 10 MG TAB PO SCH (17:24)
--- NOTE | 2017-01-13 17:35 | IPN ---
DATE: 01/13/2017 SUBJECTIVE: The patient denies complaints. She is awake and alert. She is disoriented. Denies any complaints. She does not know where she is, what year it is, or who the president is. OBJECTIVE: VITAL SIGNS: Temperature 98.5, pulse 60, respiratory rate 20, blood pressure 138/68, oxygen saturation 97% on room air. GENERAL: She is a very pleasant, elderly, confused, female laying flat in bed. She does not appear to be in any acute distress. NEUROLOGIC: Cranial nerves II-XII are grossly intact. HEENT: She has moist mucous membranes. No elevation of central venous pressure (CVP). CARDIOVASCULAR: S1, S2, regular. RESPIRATORY: Fairly clear. ABDOMEN: Bowel sounds present. The abdomen is soft and nontender. EXTREMITIES: No clubbing, cyanosis, or edema. LABORATORY STUDIES: WBC increased to 14.6, up from 9.2, hemoglobin 11.4, hematocrit 34.6, and platelet count 494. Chemistry panel: Sodium 138, potassium 4.1, chloride 109, bicarbonate 17, BUN 12, creatinine 0.7, magnesium level 2.0. Urinalysis from 01/10/2017 was normal with significant WBCs, leukocyte esterase and bacterial. An ANDI was positive, an PORTFOLIO MGR was elevated. Hepatitis panel is negative. MICROBIOLOGY: Urine culture from 01/10/2017 was positive for E. coli. No new imaging. ASSESSMENT AND PLAN: This is an 81-year-old female with Alzheimer's dementia who has had a long complicated hospital course. She has been here since 12/22/2016. PROBLEMS: 1. Urinary tract infection. She was treated with Macrobid and completed a course. However, her urinalysis and urine culture remain positive. She does have a rising leukocytosis at this time. I will discontinue the Macrobid and provide her with a one-time dose of fosfomycin. She does have an allergy to azithromycin, cephalexin, and sulfa drugs. 2. Acute on chronic metabolic encephalopathy. She has underlying dementia and I suspect her baseline mentation is not far from what it is today. She may have some slight worsening related to her abnormal urinalysis and urinary tract infection. 3. Diastolic congestive heart failure exacerbation. This appears to be resolved. She appears to be fairly euvolemic at this time. Her blood pressure is under control. She has fairly persistent hypertension requiring clonidine 0.1 mg at bedtime, hydralazine 25 mg every six hours, Imdur 60 mg daily, bisoprolol 20 mg daily. 4. Bilateral infiltrated. There was concern for hospital-acquired pneumonia (HCAP). She is status post a 10-day course of moxifloxacin. 5. Dementia. Continue with Aricept. 6. Generalized anxiety. Continue with alprazolam and citalopram. 7. Hepatic mass, likely malignant, less likely infectious. The family is not currently pursuing any biopsy or treatments. They understand the risks and potential fatal complications. 8. Lower extremity weakness, likely related to deconditioning. Continue to work with physical therapy. She did work with them somewhat today. 9. Diabetes. Continue with sliding scale insulin. 10. Acute kidney injury, resolved. 11. Iron deficiency anemia. Continue with ferrous sulfate. 12. Allergic rhinitis. Continue with fexofenadine. 13. Dyslipidemia. Continue with pravastatin. 14. Seasonal allergies. Continue with Singulair. DISPOSITION: Pending her ability to work with physical therapy (PT), likely placement.
[2017-01-13] MEDS: CitaloPRAM (CeleXA) 20 MG TAB PO SCH (21:25)
[2017-01-13] MEDS: ALPRAZolam 0.25 MG TAB PO PRN (21:25)
[2017-01-13] MEDS: cloNIDine 0.1 MG TAB PO SCH (21:26)
[2017-01-13] MEDS: ASPIRIN 81 MG ENTERIC TAB PO SCH (21:26)
[2017-01-13] MEDS: DONEPEZIL 5 MG TAB PO SCH (21:26)
[2017-01-13 22:00] VITALS: BP 160/76
[2017-01-14] MEDS: **hydrALAZINE HCL** 25 MG TAB PO SCH ×5 (00:49→23:53)
[2017-01-14] MEDS: NITROGLYCERIN 2% OINT 1 GM *U/D* PKT TOP SCH ×7 (04:00→23:53)
[2017-01-14 06:00] VITALS: BP 150/70
[2017-01-14] MEDS: HEPARIN SOD (PORCINE) 5000 UNITS/ML VIAL SC SCH ×3 (06:12→20:17)
[2017-01-14 06:55] LABS: ALBUMIN 2.7 GM/DL (3.2-5.2); ALBUMIN/GLOBULIN RATIO 0.69 (1.00-1.93); ALKALINE PHOSPHATASE 51 U/L (45-117); ALT/SGPT 39 U/L (12-78); ANION GAP 8 MEQ/L (8-16); AST/SGOT 16 U/L (7-37); BILIRUBIN,TOTAL 0.5 MG/DL (0.2-1.0); BLOOD UREA NITROGEN 13 MG/DL (7-18); CALCIUM LEVEL 9.1 MG/DL (8.8-10.2); CARBON DIOXIDE LEVEL 19 MEQ/L (21-32); CHLORIDE LEVEL 110 MEQ/L (98-107); CREATININE FOR GFR 0.83 MG/DL (0.55-1.02); GLOMERULAR FILTRATION RATE > 60.0 (>32); GLUCOSE, FASTING 158 MG/DL (83-110); MAGNESIUM LEVEL 2.2 MG/DL (1.8-2.4); SODIUM LEVEL 137 MEQ/L (136-145); TOTAL PROTEIN 6.6 GM/DL (6.4-8.2)
[2017-01-14 07:07] LABS: BASO # 0.1 10^3/uL (0.0-0.2); BASO % 0.9 % (0.0-1.0); EOS # 0.1 10^3/uL (0.0-0.50); EOS % 1.5 % (0.0-3.0); IMMATURE GRANULOCYTE % 0.9 % (0-0); LYMPH % 21.3 % (24.0-44.0); MEAN CORPUSCULAR HEMOGLOBIN 33.8 pg (27.0-33.0); MEAN CORPUSCULAR HGB CONC 33.1 g/dl (32.0-36.5); MEAN CORPUSCULAR VOLUME 102.1 fl (80.0-96.0); MONO # 1.2 10^3/uL (0.0-0.8); NEUTROPHILS # 5.8 10^3/uL (1.8-7.7); NEUTROPHILS % 62.4 % (36.0-66.0); PLATELET COUNT, AUTOMATED 466 10^3/uL (150-450); WHITE BLOOD COUNT 9.2 10^3/uL (4.0-10.0)
[2017-01-14] MEDS: BISOPROLOL FUMARATE 10 MG TAB PO SCH ×2 (09:00→09:16)
[2017-01-14] MEDS: HumaLOG INSULIN (NovoLOG) PER UNIT SC SCH ×4 (09:12→20:16)
[2017-01-14] MEDS: FERROUS SULFATE 325MG TAB PO SCH (09:16)
[2017-01-14] MEDS: MULTIVITAMINS/MINERALS THERAP 1 TAB PO SCH (09:16)
[2017-01-14] MEDS: SENOKOT S TAB PO SCH ×2 (09:16→20:14)
[2017-01-14] MEDS: ISOSORBIDE MON. (IMDUR) 60 MG XR TAB PO SCH (09:16)
[2017-01-14] MEDS: MEGESTROL ES SUSP 625 MG/5 ML UDC PO SCH (09:16)
[2017-01-14] MEDS: LEVEMIR (INSULIN DETEMIR) 1 UNITS/0.01ML SC SCH ×2 (09:17→20:16)
[2017-01-14 14:00] VITALS: BP 161/72
--- NOTE | 2017-01-14 17:38 | IPN ---
DATE: 01/14/2017 SUBJECTIVE: The patient denies complaints. At the present time she is oriented to person but no to place, time and situation. She is eating breakfast. OBJECTIVE: VITAL SIGNS: Temperature 98.2, pulse 59, respiratory rate 18, blood pressure 161/72, oxygen saturation 97% on room air. GENERAL: She is a very obese, female sitting up eating breakfast. She does not appear to be in any acute distress. HEENT: She is mildly disheveled. She has moist mucous membranes. No elevation of central venous pressure (CVP). NEUROLOGIC: Cranial nerves II-XII appear to be grossly intact. CARDIOVASCULAR: S1, S2, regular. RESPIRATORY: Clear. ABDOMEN: Obese. EXTREMITIES: No clubbing, cyanosis, or edema. LABORATORY STUDIES: WBC 9.2, hemoglobin 11.1, platelet count 466. Chemistry panel: Sodium 137, potassium 4.0, chloride 110, bicarbonate 19, BUN 13, creatinine 0.8. No new imaging. ASSESSMENT AND PLAN: This is an 81-year-old female with Alzheimer's dementia who has had a long complicated hospital course. She has been here since 12/22/2016. PROBLEMS: 1. Urinary tract infection. She was treated with Macrobid and completed a course. However, her urinalysis remained suggestive of an infection. The culture was positive with rising leukocytosis. I did continue the restarted course of Macrobid and provided her with a one-time dose of fosfomycin which she has tolerated well. Her leukocytosis is trending down now. 2. Metabolic encephalopathy, likely acute on chronic during her hospitalization with a UTI and pneumonia She has underlying dementia and I suspect she is currently at her baseline mentation. Will require halfway facility placement which patient family services is currently working on. She will continue on Aricept. 3. Diastolic congestive heart failure with decompensation, appears to have resolve. She appears to be euvolemic at this time. Her blood pressure is controlled with clonidine, hydralazine, Imdur, bisoprolol. With this regimen she does not appear to require any loop diuretic. 4. Bilateral infiltrate. There was concern for hospital-acquired pneumonia (HCAP). She has already completed a 10-day course of antibiotics. 5. Generalized anxiety. Continue with alprazolam and citalopram. 6. Hepatic mass with concern that is likely malignant, however the family is not pursuing any biopsy or treatments. They understand the risks and potential fatal complications of this decision. 7. Lower extremity weakness, likely related to deconditioning and poor safety compliance related to dementia. Continue to work with physical therapy. This patient requires halfway placement. 8. Diabetes. She is on sliding scale insulin. 9 . Acute kidney injury, resolved. 10. Iron deficiency anemia. She is on supplementation. 11. Allergic rhinitis. She is on Singulair and fexofenadine. 12. Dyslipidemia. She is on pravastatin. DISPOSITION: Pending placement.
[2017-01-14] MEDS: PRAVASTATIN 20 MG TAB PO SCH (18:40)
[2017-01-14] MEDS: MONTELUKAST 10 MG TAB PO SCH (18:41)
[2017-01-14] MEDS: DONEPEZIL 5 MG TAB PO SCH (20:14)
[2017-01-14] MEDS: CitaloPRAM (CeleXA) 20 MG TAB PO SCH (20:14)
[2017-01-14] MEDS: ALPRAZolam 0.25 MG TAB PO PRN (20:14)
[2017-01-14] MEDS: ACETAMINOPHEN TAB 650MG DOSE (2X325MG) PO PRN (20:14)
[2017-01-14] MEDS: ASPIRIN 81 MG ENTERIC TAB PO SCH (20:14)
[2017-01-14] MEDS: cloNIDine 0.1 MG TAB PO SCH (20:15)
[2017-01-14 22:00] VITALS: BP 172/88
[2017-01-15] MEDS: NITROGLYCERIN 2% OINT 1 GM *U/D* PKT TOP SCH ×6 (04:00→23:41)
[2017-01-15] MEDS: **hydrALAZINE HCL** 25 MG TAB PO SCH ×4 (05:27→23:41)
[2017-01-15] MEDS: HEPARIN SOD (PORCINE) 5000 UNITS/ML VIAL SC SCH ×3 (05:27→20:15)
[2017-01-15 06:00] VITALS: BP 150/60
[2017-01-15 06:51] LABS: BASO # 0.1 10^3/uL (0.0-0.2); BASO % 0.7 % (0.0-1.0); EOS # 0.2 10^3/uL (0.0-0.50); EOS % 1.8 % (0.0-3.0); IMMATURE GRANULOCYTE % 0.9 % (0-0); LYMPH # 2.6 10^3/uL (1.5-4.5); LYMPH % 31.5 % (24.0-44.0); MEAN CORPUSCULAR HEMOGLOBIN 33.5 pg (27.0-33.0); MEAN CORPUSCULAR HGB CONC 32.9 g/dl (32.0-36.5); MEAN CORPUSCULAR VOLUME 101.9 fl (80.0-96.0); MONO # 1.1 10^3/uL (0.0-0.8); MONO % 12.8 % (0.0-5.0); NEUTROPHILS # 4.3 10^3/uL (1.8-7.7); NEUTROPHILS % 52.3 % (36.0-66.0); PLATELET COUNT, AUTOMATED 456 10^3/uL (150-450); RED CELL DISTRIBUTION WIDTH 13.8 % (11.5-14.5); WHITE BLOOD COUNT 8.2 10^3/uL (4.0-10.0)
[2017-01-15 07:17] LABS: ALBUMIN 2.6 GM/DL (3.2-5.2); ALKALINE PHOSPHATASE 47 U/L (45-117); ALT/SGPT 33 U/L (12-78); ANION GAP 8 MEQ/L (8-16); AST/SGOT 13 U/L (7-37); BILIRUBIN,TOTAL 0.4 MG/DL (0.2-1.0); BLOOD UREA NITROGEN 16 MG/DL (7-18); CALCIUM LEVEL 8.9 MG/DL (8.8-10.2); CARBON DIOXIDE LEVEL 19 MEQ/L (21-32); CHLORIDE LEVEL 111 MEQ/L (98-107); CREATININE FOR GFR 0.82 MG/DL (0.55-1.02); GLOMERULAR FILTRATION RATE > 60.0 (>32); GLUCOSE, FASTING 145 MG/DL (83-110); MAGNESIUM LEVEL 2.2 MG/DL (1.8-2.4); POTASSIUM SERUM 4.2 MEQ/L (3.5-5.1); SODIUM LEVEL 138 MEQ/L (136-145); TOTAL PROTEIN 6.3 GM/DL (6.4-8.2)
[2017-01-15] MEDS: HumaLOG INSULIN (NovoLOG) PER UNIT SC SCH ×4 (08:55→21:00)
[2017-01-15] MEDS: SENOKOT S TAB PO SCH ×2 (09:00→20:14)
[2017-01-15] MEDS: MULTIVITAMINS/MINERALS THERAP 1 TAB PO SCH (09:00)
[2017-01-15] MEDS: ISOSORBIDE MON. (IMDUR) 60 MG XR TAB PO SCH (09:00)
[2017-01-15] MEDS: FERROUS SULFATE 325MG TAB PO SCH (09:00)
[2017-01-15] MEDS: BISOPROLOL FUMARATE 10 MG TAB PO SCH (09:00)
[2017-01-15] MEDS: MEGESTROL ES SUSP 625 MG/5 ML UDC PO SCH (09:01)
[2017-01-15] MEDS: LEVEMIR (INSULIN DETEMIR) 1 UNITS/0.01ML SC SCH ×2 (09:01→21:00)
[2017-01-15 14:00] VITALS: BP 145/71
--- NOTE | 2017-01-15 14:56 | IPN ---
DATE: 01/15/2017 SUBJECTIVE: The patient tells me that she is feeling well. She has no complaints. She is oriented to person but not to place, time or situation. OBJECTIVE: VITAL SIGNS: Temperature 98.2, pulse 60, respiratory rate 18, blood pressure stable , oxygen saturation 97% on room air. GENERAL: She is a frail, elderly, woman, obese, sitting up eating breakfast. She does not appear to be in any acute distress. HEENT: Cranial nerves II through XII are grossly intact. She has moist mucous membranes. No elevation in central venous pressure. CARDIOVASCULAR: S1, S2, regular. RESPIRATORY: Clear. ABDOMEN: Obese. EXTREMITIES: No clubbing, cyanosis, or edema. LABORATORY STUDIES: WBC 8.2, hemoglobin 10.7, platelet count 466. Chemistry panel: Sodium 138, potassium 4.2, chloride 111, bicarbonate 19, BUN 16 , creatinine 0.8. No new imaging. ASSESSMENT AND PLAN: This is an 81-year-old female with Alzheimer's dementia who has had a long complicated hospital course. PROBLEMS: 1. Urinary tract infection, status post treatment with Macrobid. She completed a course; however, her urinalysis remained abnormal and her repeat urine culture was positive. She did have rising leukocytosis and as such I did continue the Macrobid and gave her a one time dose of fosfomycin and since then her leukocytosis has resolved. 2. Metabolic encephalopathy, likely acute on chronic. She has underlying dementia, and I suspect she is currently at her baseline mentation. She will likely require penitentiary facility. Patient and family services is currently working on placement. She will continue on Aricept. 3. Diastolic congestive heart failure with decompensation, appears to have resolved. She is euvolemic at this time. Her blood pressure is controlled with clonidine, hydralazine, Imdur, bisoprolol. She does not appear to require any loop diuretic. Continue to monitor daily weights. 4. Bilateral infiltrate. There was concern for healthcare-associated pneumonia. She completed a 10-day course of antibiotics. 5. Generalized anxiety. Continue with alprazolam and citalopram. 6. Hepatic mass. There is certainly concern for a malignant lesion, however the family is not pursuing any biopsy or treatments. They understand the risks and potential fatal complications of this decision. 7. Lower extremity weakness, likely related to deconditioning. She does appear to be getting stronger and working better with physical therapy (PT) every day. However, given her baseline cognitive status, she will likely still require penitentiary. 8. Diabetes. She is on sliding scale insulin. 9 . Acute kidney injury, resolved. 10. Iron deficiency anemia. She is on supplementation. 11. Allergic rhinitis. She is on Singulair and fexofenadine. 12. Dyslipidemia. She is on pravastatin. DISPOSITION: Pending placement. [facility]
[2017-01-15] MEDS: PRAVASTATIN 20 MG TAB PO SCH (18:48)
[2017-01-15] MEDS: MONTELUKAST 10 MG TAB PO SCH (18:48)
[2017-01-15] MEDS: CitaloPRAM (CeleXA) 20 MG TAB PO SCH (20:14)
[2017-01-15] MEDS: ASPIRIN 81 MG ENTERIC TAB PO SCH (20:14)
[2017-01-15] MEDS: cloNIDine 0.1 MG TAB PO SCH (20:14)
[2017-01-15] MEDS: DONEPEZIL 5 MG TAB PO SCH (20:15)
[2017-01-15 22:00] VITALS: BP 142/66
[2017-01-15] MEDS: ALPRAZolam 0.25 MG TAB PO PRN (23:42)
[2017-01-15] MEDS: ACETAMINOPHEN TAB 650MG DOSE (2X325MG) PO PRN (23:42)
[2017-01-16] MEDS: NITROGLYCERIN 2% OINT 1 GM *U/D* PKT TOP SCH ×5 (04:00→20:43)
[2017-01-16] MEDS: **hydrALAZINE HCL** 25 MG TAB PO SCH ×3 (05:45→17:46)
[2017-01-16 06:00] VITALS: BP 170/72
[2017-01-16] MEDS: HEPARIN SOD (PORCINE) 5000 UNITS/ML VIAL SC SCH ×3 (06:00→21:04)
[2017-01-16 06:13] LABS: MEAN CORPUSCULAR HEMOGLOBIN 32.8 pg (27.0-33.0); MEAN CORPUSCULAR HGB CONC 32.7 g/dl (32.0-36.5); MEAN CORPUSCULAR VOLUME 100.6 fl (80.0-96.0); PLATELET COUNT, AUTOMATED 504 10^3/uL (150-450); RED CELL DISTRIBUTION WIDTH 13.6 % (11.5-14.5); WHITE BLOOD COUNT 8.7 10^3/uL (4.0-10.0)
[2017-01-16 06:26] LABS: ANION GAP 10 MEQ/L (8-16); BLOOD UREA NITROGEN 16 MG/DL (7-18); CALCIUM LEVEL 9.4 MG/DL (8.8-10.2); CARBON DIOXIDE LEVEL 21 MEQ/L (21-32); CHLORIDE LEVEL 107 MEQ/L (98-107); CREATININE FOR GFR 0.78 MG/DL (0.55-1.02); GLOMERULAR FILTRATION RATE > 60.0 (>32); GLUCOSE, FASTING 147 MG/DL (83-110); POTASSIUM SERUM 4.3 MEQ/L (3.5-5.1); SODIUM LEVEL 138 MEQ/L (136-145)
[2017-01-16] MEDS: HumaLOG INSULIN (NovoLOG) PER UNIT SC SCH ×4 (07:30→21:00)
[2017-01-16] MEDS: MULTIVITAMINS/MINERALS THERAP 1 TAB PO SCH (09:00)
[2017-01-16] MEDS: MEGESTROL ES SUSP 625 MG/5 ML UDC PO SCH (10:41)
[2017-01-16] MEDS: BISOPROLOL FUMARATE 10 MG TAB PO SCH (10:42)
[2017-01-16] MEDS: FERROUS SULFATE 325MG TAB PO SCH (10:44)
[2017-01-16] MEDS: SENOKOT S TAB PO SCH ×2 (10:44→20:38)
[2017-01-16] MEDS: ISOSORBIDE MON. (IMDUR) 60 MG XR TAB PO SCH (10:45)
[2017-01-16] MEDS: LEVEMIR (INSULIN DETEMIR) 1 UNITS/0.01ML SC SCH ×2 (10:46→21:04)
[2017-01-16 14:00] VITALS: BP 138/77
[2017-01-16] MEDS: MONTELUKAST 10 MG TAB PO SCH (17:40)
[2017-01-16] MEDS: PRAVASTATIN 20 MG TAB PO SCH (17:41)
[2017-01-16 17:54] VITALS: BP 186/80
[2017-01-16] MEDS: DONEPEZIL 5 MG TAB PO SCH (20:38)
[2017-01-16] MEDS: ASPIRIN 81 MG ENTERIC TAB PO SCH (20:38)
[2017-01-16] MEDS: cloNIDine 0.1 MG TAB PO SCH (20:39)
[2017-01-16] MEDS: CitaloPRAM (CeleXA) 20 MG TAB PO SCH (20:39)
[2017-01-16 22:00] VITALS: BP 150/77
[2017-01-17] MEDS: **hydrALAZINE HCL** 25 MG TAB PO SCH ×5 (00:15→23:58)
[2017-01-17] MEDS: NITROGLYCERIN 2% OINT 1 GM *U/D* PKT TOP SCH ×7 (00:15→23:58)
[2017-01-17 05:36] LABS: MEAN CORPUSCULAR HEMOGLOBIN 33.1 pg (27.0-33.0); MEAN CORPUSCULAR HGB CONC 33.4 g/dl (32.0-36.5); MEAN CORPUSCULAR VOLUME 99.1 fl (80.0-96.0); PLATELET COUNT, AUTOMATED 522 10^3/uL (150-450); RED CELL DISTRIBUTION WIDTH 13.6 % (11.5-14.5); WHITE BLOOD COUNT 9.6 10^3/uL (4.0-10.0)
[2017-01-17] MEDS: HEPARIN SOD (PORCINE) 5000 UNITS/ML VIAL SC SCH ×3 (05:41→21:01)
[2017-01-17 05:53] LABS: ANION GAP 10 MEQ/L (8-16); BLOOD UREA NITROGEN 14 MG/DL (7-18); CALCIUM LEVEL 9.4 MG/DL (8.8-10.2); CARBON DIOXIDE LEVEL 20 MEQ/L (21-32); CHLORIDE LEVEL 109 MEQ/L (98-107); CREATININE FOR GFR 0.79 MG/DL (0.55-1.02); GLOMERULAR FILTRATION RATE > 60.0 (>32); GLUCOSE, FASTING 127 MG/DL (83-110); POTASSIUM SERUM 4.4 MEQ/L (3.5-5.1); SODIUM LEVEL 139 MEQ/L (136-145)
[2017-01-17 06:00] VITALS: BP 165/70
[2017-01-17 06:46] VITALS: BP 152/78
[2017-01-17] MEDS: MEGESTROL ES SUSP 625 MG/5 ML UDC PO SCH (07:59)
[2017-01-17] MEDS: HumaLOG INSULIN (NovoLOG) PER UNIT SC SCH ×4 (07:59→20:31)
[2017-01-17] MEDS: LEVEMIR (INSULIN DETEMIR) 1 UNITS/0.01ML SC SCH ×2 (08:00→21:00)
[2017-01-17] MEDS: BISOPROLOL FUMARATE 10 MG TAB PO SCH (08:02)
[2017-01-17] MEDS: MULTIVITAMINS/MINERALS THERAP 1 TAB PO SCH (08:03)
[2017-01-17] MEDS: FERROUS SULFATE 325MG TAB PO SCH (08:04)
[2017-01-17] MEDS: SENOKOT S TAB PO SCH ×2 (08:04→20:59)
[2017-01-17] MEDS: ISOSORBIDE MON. (IMDUR) 60 MG XR TAB PO SCH (08:04)
[2017-01-17] MEDS: ACETAMINOPHEN TAB 650MG DOSE (2X325MG) PO PRN ×2 (10:56→22:20)
[2017-01-17 14:00] VITALS: BP 140/62
[2017-01-17] MEDS: MONTELUKAST 10 MG TAB PO SCH (17:02)
[2017-01-17] MEDS: PRAVASTATIN 20 MG TAB PO SCH (17:02)
[2017-01-17] MEDS: CitaloPRAM (CeleXA) 20 MG TAB PO SCH (20:58)
[2017-01-17] MEDS: DONEPEZIL 5 MG TAB PO SCH (20:58)
[2017-01-17] MEDS: cloNIDine 0.1 MG TAB PO SCH (20:59)
[2017-01-17] MEDS: ASPIRIN 81 MG ENTERIC TAB PO SCH (20:59)
[2017-01-17 22:00] VITALS: BP 161/77
[2017-01-18] MEDS: NITROGLYCERIN 2% OINT 1 GM *U/D* PKT TOP SCH ×5 (04:11→20:32)
[2017-01-18] MEDS: HEPARIN SOD (PORCINE) 5000 UNITS/ML VIAL SC SCH ×3 (05:40→20:40)
[2017-01-18] MEDS: **hydrALAZINE HCL** 25 MG TAB PO SCH ×3 (05:40→18:30)
[2017-01-18 06:00] VITALS: BP 163/88
[2017-01-18 06:10] LABS: MEAN CORPUSCULAR HEMOGLOBIN 33.1 pg (27.0-33.0); MEAN CORPUSCULAR HGB CONC 33.2 g/dl (32.0-36.5); MEAN CORPUSCULAR VOLUME 99.7 fl (80.0-96.0); PLATELET COUNT, AUTOMATED 510 10^3/uL (150-450); RED CELL DISTRIBUTION WIDTH 13.5 % (11.5-14.5); WHITE BLOOD COUNT 9.5 10^3/uL (4.0-10.0)
[2017-01-18 06:36] LABS: ANION GAP 11 MEQ/L (8-16); BLOOD UREA NITROGEN 15 MG/DL (7-18); CALCIUM LEVEL 9.4 MG/DL (8.8-10.2); CARBON DIOXIDE LEVEL 19 MEQ/L (21-32); CHLORIDE LEVEL 109 MEQ/L (98-107); CREATININE FOR GFR 0.82 MG/DL (0.55-1.02); GLOMERULAR FILTRATION RATE > 60.0 (>32); GLUCOSE, FASTING 143 MG/DL (83-110); POTASSIUM SERUM 4.7 MEQ/L (3.5-5.1); SODIUM LEVEL 139 MEQ/L (136-145)
[2017-01-18] MEDS: HumaLOG INSULIN (NovoLOG) PER UNIT SC SCH ×4 (09:40→20:39)
[2017-01-18] MEDS: LEVEMIR (INSULIN DETEMIR) 1 UNITS/0.01ML SC SCH ×2 (09:41→20:29)
[2017-01-18] MEDS: BISOPROLOL FUMARATE 10 MG TAB PO SCH (09:42)
[2017-01-18] MEDS: ISOSORBIDE MON. (IMDUR) 60 MG XR TAB PO SCH (09:45)
[2017-01-18] MEDS: MEGESTROL ES SUSP 625 MG/5 ML UDC PO SCH (09:45)
[2017-01-18] MEDS: FERROUS SULFATE 325MG TAB PO SCH (09:46)
[2017-01-18] MEDS: SENOKOT S TAB PO SCH ×2 (09:46→20:29)
[2017-01-18] MEDS: MULTIVITAMINS/MINERALS THERAP 1 TAB PO SCH (09:46)
[2017-01-18 14:00] VITALS: BP 164/71
[2017-01-18] MEDS: MONTELUKAST 10 MG TAB PO SCH (18:29)
[2017-01-18] MEDS: PRAVASTATIN 20 MG TAB PO SCH (18:30)
[2017-01-18] MEDS: ASPIRIN 81 MG ENTERIC TAB PO SCH (20:29)
[2017-01-18] MEDS: CitaloPRAM (CeleXA) 20 MG TAB PO SCH (20:30)
[2017-01-18] MEDS: DONEPEZIL 5 MG TAB PO SCH (20:30)
[2017-01-18] MEDS: cloNIDine 0.1 MG TAB PO SCH (20:31)
[2017-01-18 22:00] VITALS: BP 154/62
[2017-01-19 00:48] VITALS: BP 138/60
[2017-01-19] MEDS: NITROGLYCERIN 2% OINT 1 GM *U/D* PKT TOP SCH ×6 (00:48→21:33)
[2017-01-19] MEDS: **hydrALAZINE HCL** 25 MG TAB PO SCH ×4 (01:10→17:57)
[2017-01-19] MEDS: ACETAMINOPHEN TAB 650MG DOSE (2X325MG) PO PRN ×2 (04:14→23:32)
[2017-01-19 05:59] LABS: MEAN CORPUSCULAR HEMOGLOBIN 33.7 pg (27.0-33.0); MEAN CORPUSCULAR HGB CONC 33.4 g/dl (32.0-36.5); MEAN CORPUSCULAR VOLUME 100.9 fl (80.0-96.0); PLATELET COUNT, AUTOMATED 470 10^3/uL (150-450); RED CELL DISTRIBUTION WIDTH 13.8 % (11.5-14.5)
[2017-01-19 06:00] VITALS: BP 150/64
[2017-01-19 06:24] LABS: ANION GAP 8 MEQ/L (8-16); BLOOD UREA NITROGEN 17 MG/DL (7-18); CALCIUM LEVEL 9.7 MG/DL (8.8-10.2); CARBON DIOXIDE LEVEL 22 MEQ/L (21-32); CHLORIDE LEVEL 107 MEQ/L (98-107); CREATININE FOR GFR 0.81 MG/DL (0.55-1.02); GLOMERULAR FILTRATION RATE > 60.0 (>32); GLUCOSE, FASTING 129 MG/DL (83-110); POTASSIUM SERUM 4.7 MEQ/L (3.5-5.1); SODIUM LEVEL 137 MEQ/L (136-145)
[2017-01-19] MEDS: HEPARIN SOD (PORCINE) 5000 UNITS/ML VIAL SC SCH ×3 (06:36→21:32)
[2017-01-19] MEDS: FERROUS SULFATE 325MG TAB PO SCH (09:43)
[2017-01-19] MEDS: ISOSORBIDE MON. (IMDUR) 60 MG XR TAB PO SCH (09:44)
[2017-01-19] MEDS: SENOKOT S TAB PO SCH ×2 (09:44→21:34)
[2017-01-19] MEDS: HumaLOG INSULIN (NovoLOG) PER UNIT SC SCH ×4 (09:44→20:59)
[2017-01-19] MEDS: MULTIVITAMINS/MINERALS THERAP 1 TAB PO SCH (09:44)
[2017-01-19] MEDS: MEGESTROL ES SUSP 625 MG/5 ML UDC PO SCH (09:45)
[2017-01-19] MEDS: BISOPROLOL FUMARATE 10 MG TAB PO SCH (09:45)
[2017-01-19] MEDS: LEVEMIR (INSULIN DETEMIR) 1 UNITS/0.01ML SC SCH ×2 (09:45→21:00)
[2017-01-19 14:00] VITALS: BP 150/68
[2017-01-19] MEDS: MONTELUKAST 10 MG TAB PO SCH (17:56)
[2017-01-19] MEDS: PRAVASTATIN 20 MG TAB PO SCH (17:56)
[2017-01-19] MEDS: CitaloPRAM (CeleXA) 20 MG TAB PO SCH (21:34)
[2017-01-19] MEDS: ASPIRIN 81 MG ENTERIC TAB PO SCH (21:34)
[2017-01-19] MEDS: cloNIDine 0.1 MG TAB PO SCH (21:34)
[2017-01-19] MEDS: DONEPEZIL 5 MG TAB PO SCH (21:34)
[2017-01-19 22:00] VITALS: BP 172/70
[2017-01-20] MEDS: **hydrALAZINE HCL** 25 MG TAB PO SCH ×4 (01:04→18:04)
[2017-01-20] MEDS: NITROGLYCERIN 2% OINT 1 GM *U/D* PKT TOP SCH ×3 (05:20→08:32)
[2017-01-20] MEDS: HEPARIN SOD (PORCINE) 5000 UNITS/ML VIAL SC SCH ×3 (05:21→21:52)
[2017-01-20 06:00] VITALS: BP 164/60
[2017-01-20 06:23] LABS: MEAN CORPUSCULAR HEMOGLOBIN 33.8 pg (27.0-33.0); MEAN CORPUSCULAR HGB CONC 33.3 g/dl (32.0-36.5); MEAN CORPUSCULAR VOLUME 101.4 fl (80.0-96.0); PLATELET COUNT, AUTOMATED 455 10^3/uL (150-450); RED CELL DISTRIBUTION WIDTH 13.6 % (11.5-14.5); WHITE BLOOD COUNT 12.1 10^3/uL (4.0-10.0)
[2017-01-20 06:46] LABS: ANION GAP 8 MEQ/L (8-16); BLOOD UREA NITROGEN 17 MG/DL (7-18); CALCIUM LEVEL 9.9 MG/DL (8.8-10.2); CARBON DIOXIDE LEVEL 21 MEQ/L (21-32); CHLORIDE LEVEL 106 MEQ/L (98-107); CREATININE FOR GFR 0.77 MG/DL (0.55-1.02); GLOMERULAR FILTRATION RATE > 60.0 (>32); GLUCOSE, FASTING 131 MG/DL (83-110); POTASSIUM SERUM 4.5 MEQ/L (3.5-5.1); SODIUM LEVEL 135 MEQ/L (136-145)
[2017-01-20] MEDS: HumaLOG INSULIN (NovoLOG) PER UNIT SC SCH ×4 (08:26→21:00)
[2017-01-20] MEDS: BISOPROLOL FUMARATE 10 MG TAB PO SCH (08:27)
[2017-01-20] MEDS: LEVEMIR (INSULIN DETEMIR) 1 UNITS/0.01ML SC SCH ×2 (08:27→21:00)
[2017-01-20] MEDS: SENOKOT S TAB PO SCH ×3 (08:28→21:53)
[2017-01-20] MEDS: FERROUS SULFATE 325MG TAB PO SCH (08:28)
[2017-01-20] MEDS: MULTIVITAMINS/MINERALS THERAP 1 TAB PO SCH (08:28)
[2017-01-20] MEDS: MEGESTROL ES SUSP 625 MG/5 ML UDC PO SCH (08:29)
[2017-01-20] MEDS: ISOSORBIDE MON. (IMDUR) 60 MG XR TAB PO SCH (08:32)
[2017-01-20] MEDS: NITROFURANTOIN (MACROBID) 100 MG CAP PO SCH ×2 (14:39→21:52)
[2017-01-20] MEDS: MONTELUKAST 10 MG TAB PO SCH (18:04)
[2017-01-20] MEDS: PRAVASTATIN 20 MG TAB PO SCH (18:04)
[2017-01-20] MEDS: CitaloPRAM (CeleXA) 20 MG TAB PO SCH (21:52)
[2017-01-20] MEDS: DONEPEZIL 5 MG TAB PO SCH (21:53)
[2017-01-20] MEDS: cloNIDine 0.1 MG TAB PO SCH (21:53)
[2017-01-20] MEDS: ASPIRIN 81 MG ENTERIC TAB PO SCH (21:53)
[2017-01-20 22:00] VITALS: BP 168/76
[2017-01-21] MEDS: **hydrALAZINE HCL** 25 MG TAB PO SCH ×5 (00:29→23:11)
[2017-01-21 06:00] VITALS: BP 151/74
[2017-01-21] MEDS: HEPARIN SOD (PORCINE) 5000 UNITS/ML VIAL SC SCH ×3 (06:38→21:10)
[2017-01-21 06:39] LABS: MEAN CORPUSCULAR HEMOGLOBIN 33.4 pg (27.0-33.0); MEAN CORPUSCULAR HGB CONC 33.2 g/dl (32.0-36.5); MEAN CORPUSCULAR VOLUME 100.6 fl (80.0-96.0); PLATELET COUNT, AUTOMATED 407 10^3/uL (150-450); RED CELL DISTRIBUTION WIDTH 13.8 % (11.5-14.5); WHITE BLOOD COUNT 12.5 10^3/uL (4.0-10.0)
[2017-01-21 07:13] LABS: ANION GAP 9 MEQ/L (8-16); BLOOD UREA NITROGEN 16 MG/DL (7-18); CALCIUM LEVEL 9.6 MG/DL (8.8-10.2); CARBON DIOXIDE LEVEL 21 MEQ/L (21-32); CHLORIDE LEVEL 108 MEQ/L (98-107); CREATININE FOR GFR 0.78 MG/DL (0.55-1.02); GLOMERULAR FILTRATION RATE > 60.0 (>32); GLUCOSE, FASTING 139 MG/DL (83-110); POTASSIUM SERUM 4.3 MEQ/L (3.5-5.1); SODIUM LEVEL 138 MEQ/L (136-145)
[2017-01-21] MEDS: LEVEMIR (INSULIN DETEMIR) 1 UNITS/0.01ML SC SCH ×2 (08:32→21:10)
[2017-01-21] MEDS: BISOPROLOL FUMARATE 10 MG TAB PO SCH (08:38)
[2017-01-21] MEDS: MEGESTROL ES SUSP 625 MG/5 ML UDC PO SCH (08:46)
[2017-01-21] MEDS: FERROUS SULFATE 325MG TAB PO SCH (08:46)
[2017-01-21] MEDS: HumaLOG INSULIN (NovoLOG) PER UNIT SC SCH ×4 (08:46→21:00)
[2017-01-21] MEDS: SENOKOT S TAB PO SCH ×2 (08:46→21:12)
[2017-01-21] MEDS: ISOSORBIDE MON. (IMDUR) 30 MG XR TAB PO SCH (08:46)
[2017-01-21] MEDS: MULTIVITAMINS/MINERALS THERAP 1 TAB PO SCH (08:46)
[2017-01-21] MEDS: NITROFURANTOIN (MACROBID) 100 MG CAP PO SCH ×2 (08:46→21:00)
[2017-01-21] MEDS: MONTELUKAST 10 MG TAB PO SCH (17:21)
[2017-01-21] MEDS: PRAVASTATIN 20 MG TAB PO SCH (17:21)
[2017-01-21] MEDS: ACETAMINOPHEN TAB 650MG DOSE (2X325MG) PO PRN (21:11)
[2017-01-21] MEDS: CitaloPRAM (CeleXA) 20 MG TAB PO SCH (21:12)
[2017-01-21] MEDS: DONEPEZIL 5 MG TAB PO SCH (21:12)
[2017-01-21] MEDS: cloNIDine 0.1 MG TAB PO SCH (21:12)
[2017-01-21] MEDS: ASPIRIN 81 MG ENTERIC TAB PO SCH (21:12)
[2017-01-22] MEDS: **hydrALAZINE HCL** 25 MG TAB PO SCH ×4 (05:18→23:38)
[2017-01-22] MEDS: HEPARIN SOD (PORCINE) 5000 UNITS/ML VIAL SC SCH ×3 (05:18→20:52)
[2017-01-22 06:00] VITALS: BP 142/59
[2017-01-22 07:35] LABS: MEAN CORPUSCULAR HEMOGLOBIN 33.5 pg (27.0-33.0); MEAN CORPUSCULAR HGB CONC 33.1 g/dl (32.0-36.5); MEAN CORPUSCULAR VOLUME 101.2 fl (80.0-96.0); PLATELET COUNT, AUTOMATED 373 10^3/uL (150-450); RED CELL DISTRIBUTION WIDTH 13.9 % (11.5-14.5); WHITE BLOOD COUNT 12.3 10^3/uL (4.0-10.0)
[2017-01-22 08:09] LABS: ANION GAP 9 MEQ/L (8-16); BLOOD UREA NITROGEN 16 MG/DL (7-18); CALCIUM LEVEL 9.9 MG/DL (8.8-10.2); CARBON DIOXIDE LEVEL 20 MEQ/L (21-32); CHLORIDE LEVEL 109 MEQ/L (98-107); CREATININE FOR GFR 0.77 MG/DL (0.55-1.02); GLOMERULAR FILTRATION RATE > 60.0 (>32); GLUCOSE, FASTING 136 MG/DL (83-110); POTASSIUM SERUM 4.2 MEQ/L (3.5-5.1); SODIUM LEVEL 138 MEQ/L (136-145)
[2017-01-22] MEDS: LEVEMIR (INSULIN DETEMIR) 1 UNITS/0.01ML SC SCH ×2 (08:36→20:56)
[2017-01-22] MEDS: HumaLOG INSULIN (NovoLOG) PER UNIT SC SCH ×4 (08:36→20:56)
[2017-01-22] MEDS: NITROFURANTOIN (MACROBID) 100 MG CAP PO SCH ×2 (08:36→20:59)
[2017-01-22] MEDS: BISOPROLOL FUMARATE 10 MG TAB PO SCH (08:36)
[2017-01-22] MEDS: MEGESTROL ES SUSP 625 MG/5 ML UDC PO SCH (08:37)
[2017-01-22] MEDS: FERROUS SULFATE 325MG TAB PO SCH (08:37)
[2017-01-22] MEDS: SENOKOT S TAB PO SCH ×2 (08:37→20:53)
[2017-01-22] MEDS: MULTIVITAMINS/MINERALS THERAP 1 TAB PO SCH (08:37)
[2017-01-22] MEDS: ISOSORBIDE MON. (IMDUR) 30 MG XR TAB PO SCH (08:37)
--- NOTE | 2017-01-22 16:25 | IPNPDOC ---
Text Note Date of Service The patient was seen on 01/22/17. NOTE No acute events overnights. no new complaints. Denied chest pain, abd pain, sob , n/v/diarrhea GENERAL: She is a frail, elderly, woman, obese, NAD HEENT: Cranial nerves II through XII are grossly intact. She has moist mucous membranes. No elevation in central venous pressure. CARDIOVASCULAR: S1, S2, regular. RESPIRATORY: Clear. ABDOMEN: Obese. sobt EXTREMITIES: No clubbing, cyanosis, or edema. ASSESSMENT AND PLAN: 81-year-old female DO NOT INTUBATE, DO NOT RESUSCITATE, history of Alzheimer's dementia with progressive deterioration who lives with her , has been with a two-person assist during this admission, type 2 diabetes, hypertension, chronic kidney disease, primary hyperparathyroidism, iron deficiency anemia, chronic diastolic heart failure. She presented to the emergency room with altered mental status and was found to have hypertensive urgency and a liver mass for which no biopsy was requested by the family. PROBLEMS: 1. Urinary tract infection, treated with Macrobid twice; consider chronic suppression if condition worsen 2. Metabolic encephalopathy, likely acute on chronic. She has underlying dementia, and I suspect she is currently at her baseline mentation. She will likely require long-term facility. Patient and family services is currently working on placement. She will continue on Aricept. 3. Diastolic congestive heart failure with decompensation, appears to have resolved. She is euvolemic at this time. Her blood pressure is controlled with clonidine, hydralazine, Imdur, bisoprolol. She does not appear to require any loop diuretic. Continue to monitor daily weights. 4. Bilateral infiltrate. There was concern for healthcare-associated pneumonia. She completed a 10-day course of antibiotics. 5. Generalized anxiety. Continue with alprazolam and citalopram. 6. Hepatic mass. There is certainly concern for a malignant lesion, however the family is not pursuing any biopsy or treatments. They understand the risks and potential fatal complications of this decision. 7. Lower extremity weakness, likely related to deconditioning. She does appear to be getting stronger and working better with physical therapy (PT) every day. However, given her baseline cognitive status, she will likely still require long-term. 8. Diabetes. She is on sliding scale insulin. 9 . Acute kidney injury, resolved. 10. Iron deficiency anemia. She is on supplementation. 11. Allergic rhinitis. She is on Singulair and fexofenadine. 12. Dyslipidemia. She is on pravastatin. DVT ppx heparin SQ DISPOSITION: Pending placement STR vs SNIF VS,Fishbone, I+O VS, Fishbone, I+O Laboratory Tests 01/22/17 07:13 Red Blood Count 3.43 L, Mean Corpuscular Volume 101.2 H, Mean Corpuscular Hemoglobin 33.5 H, Mean Corpuscular Hemoglobin Concent 33.1, Red Cell Distribution Width 13.9, Calcium Level 9.9 Vital Signs Date Time Temp Pulse Resp B/P (MAP) Pulse Ox O2 Delivery O2 Flow Rate FiO2 01/22/17 12:07 138/60 01/22/17 08:36 61 01/22/17 08:15 Room Air 01/22/17 06:00 98.0 18 97 I&O- Last 24 Hours up to 6 AM 01/23/17 06:00 Intake Total 240 ml Output Total 100 ml Balance 140 ml LATONYA TAO MD Jan 22, 2017 16:25
[2017-01-22] MEDS: PRAVASTATIN 20 MG TAB PO SCH (17:20)
[2017-01-22] MEDS: MONTELUKAST 10 MG TAB PO SCH (17:20)
[2017-01-22] MEDS: ASPIRIN 81 MG ENTERIC TAB PO SCH (20:53)
[2017-01-22] MEDS: cloNIDine 0.1 MG TAB PO SCH (20:53)
[2017-01-22] MEDS: CitaloPRAM (CeleXA) 20 MG TAB PO SCH (20:53)
[2017-01-22] MEDS: DONEPEZIL 5 MG TAB PO SCH (20:53)
[2017-01-23] MEDS: **hydrALAZINE HCL** 25 MG TAB PO SCH ×2 (05:04→12:22)
[2017-01-23] MEDS: HEPARIN SOD (PORCINE) 5000 UNITS/ML VIAL SC SCH (05:04)
[2017-01-23 06:00] VITALS: BP 127/69
[2017-01-23 06:37] LABS: MEAN CORPUSCULAR HEMOGLOBIN 33.4 pg (27.0-33.0); MEAN CORPUSCULAR HGB CONC 33.1 g/dl (32.0-36.5); MEAN CORPUSCULAR VOLUME 100.9 fl (80.0-96.0); PLATELET COUNT, AUTOMATED 378 10^3/uL (150-450); RED CELL DISTRIBUTION WIDTH 13.7 % (11.5-14.5); WHITE BLOOD COUNT 12.9 10^3/uL (4.0-10.0)
[2017-01-23 06:57] LABS: ANION GAP 9 MEQ/L (8-16); BLOOD UREA NITROGEN 19 MG/DL (7-18); CALCIUM LEVEL 9.8 MG/DL (8.8-10.2); CARBON DIOXIDE LEVEL 20 MEQ/L (21-32); CHLORIDE LEVEL 110 MEQ/L (98-107); CREATININE FOR GFR 0.79 MG/DL (0.55-1.02); GLOMERULAR FILTRATION RATE > 60.0 (>32); GLUCOSE, FASTING 133 MG/DL (83-110); POTASSIUM SERUM 4.4 MEQ/L (3.5-5.1); SODIUM LEVEL 139 MEQ/L (136-145)
[2017-01-23] MEDS: HumaLOG INSULIN (NovoLOG) PER UNIT SC SCH ×2 (08:44→12:22)
[2017-01-23] MEDS: LEVEMIR (INSULIN DETEMIR) 1 UNITS/0.01ML SC SCH (08:44)
[2017-01-23] MEDS: MEGESTROL ES SUSP 625 MG/5 ML UDC PO SCH (08:44)
[2017-01-23] MEDS: NITROFURANTOIN (MACROBID) 100 MG CAP PO SCH (08:45)
[2017-01-23] MEDS: MULTIVITAMINS/MINERALS THERAP 1 TAB PO SCH (08:45)
[2017-01-23] MEDS: ISOSORBIDE MON. (IMDUR) 30 MG XR TAB PO SCH (08:45)
[2017-01-23] MEDS: BISOPROLOL FUMARATE 10 MG TAB PO SCH (08:45)
[2017-01-23] MEDS: SENOKOT S TAB PO SCH (08:45)
[2017-01-23] MEDS: FERROUS SULFATE 325MG TAB PO SCH (08:45)
[2017-01-23] MEDS ORDERED: CLONI1TA PO (11:19)
[2017-01-23] MEDS ORDERED: HYDR25TA PO (11:19)
[2017-01-23] MEDS ORDERED: MACR100C43 PO (11:19)
[2017-01-23] MEDS ORDERED: CELE20TA PO (11:19)
[2017-01-23] MEDS ORDERED: SENN1TAB2 PO (11:19)
[2017-01-23] MEDS ORDERED: ISOS30TA4 PO (11:19)
[2017-01-23] MEDS ORDERED: BISO10TA PO (11:19)
[2017-01-23 12:22] VITALS: BP 122/60
--- NOTE | 2017-01-23 14:36 | DSES ---
DATE OF ADMISSION: 12/22/2016 DATE OF DISCHARGE: PRIMARY CARE PROVIDER: Imelda Pope. FINAL DIAGNOSES Metabolic encephalopathy. Dementia Urinary tract infection (UTI). Diastolic congestive heart failure, acutely decompensated. Bilateral infiltrates. Hypertension. Generalized anxiety. Hepatic mass. Bilateral lower extremity weakness. Deconditioning. Diabetes mellitus. Acute kidney injury. Iron-deficiency anemia. Allergic rhinitis. Dyslipidemia. HISTORY OF PRESENT ILLNESS: This is an 81-year-old female patient with underlying medical history of Alzheimer dementia, hypertension, asthma, diastolic congestive heart failure, primary hyperparathyroidism, iron-deficiency anemia, hyperplastic polyp, vitamin D deficiency, gastritis, pseudogout, cervical radiculopathy, cystocele, stress incontinence, fatty liver, hepatitis panel was negative 2013, type 2 diabetes, chronic kidney disease (CKD) stage III, presented to the emergency room with acute onset change in mental status, according to patient' , was diagnosed with dementia several months, in 05/2016 by Imelda Pope, complained of few months' history of weakness, decreasing energy, but usually able to walk with her cane or walk unassisted. The morning of admission, for breakfast patient had decrease in appetite, had a massage and returned home by noon, took a nap on the couch at around 1:30 to 2 o'clock and had gone to the bathroom. Patient was able to return back and walked about 30 feet back to couch. Around 3:30 or 4 o'clock, patient got up again to go to the bathroom. On the way back, patient's leg felt like it was giving way and the caught her before she fell to the ground. put her in an office chair with wheels and took her to the living room. He then called a friend who is a retired registered nurse who encouraged him to call the ambulance to bring her to the emergency room for further evaluation. Patient's otherwise denied any fevers, chills, cough, nausea, vomiting, diarrhea, bright red blood per rectum, melena. Patient was disoriented to year, but able to recognize , and had no dysarthria or facial asymmetry. In the emergency room, CT scan was done showing no acute hemorrhage or infarct. Blood pressure was appreciated at 130-170 systolic. Patient was afebrile but with leukocytosis and lactic acidosis with elevation of creatinine. CT of the abdomen and pelvis showed an increased solid mass in the right lobe of the liver. Subsequently, request was made for patient to be admitted. HOSPITAL COURSE: Patient was admitted to the hospital, treated for urinary tract infection and was monitored. Cultures were sent. Antibiotics suggested based on culture. Patient's blood pressure was managed. Kidney function was monitored. Physical therapy was ordered. Hospital course complicated with hospital-acquired pneumonia, completed a 10-day course of antibiotics. Insulin was given for management of patient's diabetes. Patient's kidney function returned to baseline. Mental status also returned to baseline. Hospital course also complicated by recurrent episode of leukocytosis with suspected urinary tract infection (UTI). Patient is severely deconditioned with severe dementia. seafood process worker was consulted. Arrangements were made for patient to be transferred to [facility] subacute rehabilitation for further care. In the meantime, patient tolerated oral with no acute distress, no new complaint, ready for discharge to subacute rehabilitation. Patient is currently alternate level of care. VITAL SIGNS: Temperature 99, pulse 84, respirations 20, blood pressure 122/60, pulse oximetry 96% on room air. GENERAL: Patient alert, comfortable, in no acute distress. HEENT: Normocephalic, atraumatic. Moist mucous membranes. Neck supple. CARDIAC: Regular, S1, S2. PULMONARY: Bilateral clear. ABDOMEN: Obese, soft, nontender. Positive bowel sounds. EXTREMITIES: No clubbing, cyanosis, or edema. LABORATORY: WBC 12.9, hemoglobin and hematocrit 11.3/34.1, platelets 378. Chemistry: Sodium 139, potassium 4.4, chloride 110, bicarbonate 20, BUN 19, creatinine 0.79. DISCHARGE MEDICATIONS: - Zebeta 20 mg by mouth daily - Celexa 40 mg by mouth nightly - clonidine 0.1 mg by mouth nightly - hydralazine 25 mg by mouth every 8 hours - isosorbide mononitrate extended release 90 mg by mouth daily - nitrofurantoin 100 mg by mouth twice a day for 2 more days - senna plus one tablet by mouth twice a day - Ventolin inhaler four times a day as needed - aspirin 81 mg by mouth nightly. - cranberry extract 400 mg by mouth daily - donepezil 5 mg by mouth nightly - Dymista nasal spray twice a day as needed - ferrous sulfate 325 mg by mouth daily - fexofenadine 180 mg by mouth daily - Breo inhalation daily - glipizide 2.5 mg by mouth daily - glucosamine one tablet by mouth daily - memantine 10 mg by mouth twice a day - metformin 1000 mg by mouth twice a day - montelukast 10 mg by mouth every evening - multivitamin one tablet by mouth daily - pravastatin 20 mg by mouth every evening DISCHARGE INSTRUCTIONS: Patient is instructed to followup with primary care provider in 7 days. Consider further workup for hepatic mass. Continue rehabilitation at short-term rehabilitation. Return to the hospital if symptoms worsen.
== END 2017-01-23 14:08 | DRG 70 ==
LOC: M ED 19:40 → EDBD 19:40 → M ED INP 23:37 → M MS4PR 12-23 02:20 → M MSPAV 12-26 18:51
PROVIDERS: ADMIT General Practice; ATTEND Hospitalist
DX: G93.41 Metabolic encephalopathy (principal); I50.31 Acute diastolic (congestive) heart failure; J18.9 Pneumonia, unspecified organism; N17.9 Acute kidney failure, unspecified; N39.0 Urinary tract infection, site not specified; I13.0 Hypertensive heart and chronic kidney disease with heart failure and stage 1 through stage 4 chronic kidney disease, or unspecified chronic kidney disease; Z66 Do not resuscitate; E78.5 Hyperlipidemia, unspecified; D50.9 Iron deficiency anemia, unspecified; E11.9 Type 2 diabetes mellitus without complications; F41.1 Generalized anxiety disorder; F02.80 Dementia in other diseases classified elsewhere, unspecified severity, without behavioral disturbance, psychotic disturbance, mood disturbance, and anxiety; G30.9 Alzheimer's disease, unspecified; J45.909 Unspecified asthma, uncomplicated; E55.9 Vitamin D deficiency, unspecified; M10.9 Gout, unspecified; N18.3 Chronic kidney disease, stage 3 (moderate); Z79.82 Long term (current) use of aspirin; Z79.899 Other long term (current) drug therapy; R16.0 Hepatomegaly, not elsewhere classified; E21.0 Primary hyperparathyroidism; K76.0 Fatty (change of) liver, not elsewhere classified; N81.10 Cystocele, unspecified; Z88.2 Allergy status to sulfonamides; Z88.8 Allergy status to other drugs, medicaments and biological substances; E78.00 Pure hypercholesterolemia, unspecified; B96.29 Other Escherichia coli [E. coli] as the cause of diseases classified elsewhere; N76.0 Acute vaginitis; I16.0 Hypertensive urgency; E87.6 Hypokalemia; E87.5 Hyperkalemia

== ENCOUNTER → 2017-01-26 | Outpatient (REF) ==
[~2017-01-26] MED LIST changes: +BISO10TA PO; +CELE20TA PO; +CLONI1TA PO; +HYDR25TA PO; +ISOS30TA4 PO; +SENN1TAB2 PO
[2017-01-26 08:48] LABS: MEAN CORPUSCULAR HEMOGLOBIN 33.3 pg (27.0-33.0); MEAN CORPUSCULAR HGB CONC 32.4 g/dl (32.0-36.5); MEAN CORPUSCULAR VOLUME 102.8 fl (80.0-96.0); PLATELET COUNT, AUTOMATED 393 10^3/uL (150-450); RED CELL DISTRIBUTION WIDTH 13.6 % (11.5-14.5); WHITE BLOOD COUNT 11.9 10^3/uL (4.0-10.0)
[2017-01-26 09:06] LABS: ALBUMIN 3.1 GM/DL (3.2-5.2); ALBUMIN/GLOBULIN RATIO 0.78 (1.00-1.93); ALKALINE PHOSPHATASE 58 U/L (45-117); ALT/SGPT 45 U/L (12-78); ANION GAP 11 MEQ/L (8-16); AST/SGOT 15 U/L (7-37); BILIRUBIN,TOTAL 0.4 MG/DL (0.2-1.0); BLOOD UREA NITROGEN 21 MG/DL (7-18); CALCIUM LEVEL 10.1 MG/DL (8.8-10.2); CARBON DIOXIDE LEVEL 18 MEQ/L (21-32); CHLORIDE LEVEL 111 MEQ/L (98-107); CHOLESTEROL LEVEL 112 MG/DL (<200); CREATININE FOR GFR 0.81 MG/DL (0.55-1.02); GLOMERULAR FILTRATION RATE > 60.0 (>32); GLUCOSE, FASTING 103 MG/DL (83-110); POTASSIUM SERUM 4.3 MEQ/L (3.5-5.1); SODIUM LEVEL 140 MEQ/L (136-145); TOTAL PROTEIN 7.1 GM/DL (6.4-8.2); TRIGLYCERIDES LEVEL 118 MG/DL (<150)
== END ==
LOC: SKLAB2 07:07
PROVIDERS: ATTEND Family Medicine
DX: E11.9 Type 2 diabetes mellitus without complications (principal); D64.9 Anemia, unspecified

== ENCOUNTER → 2017-01-28 | Outpatient (REF) | payer MEDICARE, OTHER | LOC: SKLAB2 21:10 | PROVIDERS: ATTEND Family Medicine | DX: E11.9 Type 2 diabetes mellitus without complications (principal) ==

== ENCOUNTER → 2017-02-06 | Outpatient (REF) ==
[2017-02-06 09:30] LABS: BASO # 0.1 10^3/uL (0.0-0.2); EOS # 0.3 10^3/uL (0.0-0.50); EOS % 2.8 % (0.0-3.0); IMMATURE GRANULOCYTE % 0.7 % (0-0); LYMPH # 1.9 10^3/uL (1.5-4.5); LYMPH % 21.2 % (24.0-44.0); MEAN CORPUSCULAR HEMOGLOBIN 33.6 pg (27.0-33.0); MEAN CORPUSCULAR HGB CONC 33.7 g/dl (32.0-36.5); MEAN CORPUSCULAR VOLUME 99.7 fl (80.0-96.0); MONO % 11.1 % (0.0-5.0); NEUTROPHILS # 5.7 10^3/uL (1.8-7.7); NEUTROPHILS % 63.2 % (36.0-66.0); PLATELET COUNT, AUTOMATED 329 10^3/uL (150-450)
[2017-02-06 10:12] LABS: ALBUMIN 3.2 GM/DL (3.2-5.2); ALBUMIN/GLOBULIN RATIO 0.84 (1.00-1.93); ALKALINE PHOSPHATASE 83 U/L (45-117); ALT/SGPT 233 U/L (12-78); ANION GAP 10 MEQ/L (8-16); AST/SGOT 96 U/L (7-37); BILIRUBIN,TOTAL 0.4 MG/DL (0.2-1.0); BLOOD UREA NITROGEN 15 MG/DL (7-18); CALCIUM LEVEL 9.8 MG/DL (8.8-10.2); CARBON DIOXIDE LEVEL 19 MEQ/L (21-32); CHLORIDE LEVEL 109 MEQ/L (98-107); CREATININE FOR GFR 0.82 MG/DL (0.55-1.02); GLOMERULAR FILTRATION RATE > 60.0 (>32); GLUCOSE, FASTING 152 MG/DL (83-110); POTASSIUM SERUM 4.5 MEQ/L (3.5-5.1); SODIUM LEVEL 138 MEQ/L (136-145)
== END ==
LOC: SKLAB2 07:02
PROVIDERS: ATTEND Family Medicine
DX: N39.0 Urinary tract infection, site not specified (principal)

== ENCOUNTER → 2017-02-12 | Outpatient (REF) | LOC: SKLAB2 14:19 | DX: N39.0 Urinary tract infection, site not specified (principal) ==

== ENCOUNTER → 2017-02-19 | Outpatient (REF) ==
[2017-02-19 08:38] LABS: ALBUMIN 2.5 GM/DL (3.2-5.2); ALBUMIN/GLOBULIN RATIO 0.58 (1.00-1.93); ALKALINE PHOSPHATASE 161 U/L (45-117); ALT/SGPT 93 U/L (12-78); ANION GAP 9 MEQ/L (8-16); AST/SGOT 60 U/L (7-37); BILIRUBIN,TOTAL 0.4 MG/DL (0.2-1.0); BLOOD UREA NITROGEN 15 MG/DL (7-18); CALCIUM LEVEL 9.8 MG/DL (8.8-10.2); CARBON DIOXIDE LEVEL 19 MEQ/L (21-32); CHLORIDE LEVEL 113 MEQ/L (98-107); CREATININE FOR GFR 0.66 MG/DL (0.55-1.02); GLOMERULAR FILTRATION RATE > 60.0 (>32); GLUCOSE, FASTING 134 MG/DL (83-110); SODIUM LEVEL 141 MEQ/L (136-145); TOTAL PROTEIN 6.8 GM/DL (6.4-8.2)
[2017-02-20 09:18] LABS: ALPHA FETOPROTEIN TUMOR QUANT 44.1 NG/ML (<8.1)
== END ==
LOC: SKLAB2 07:12
DX: M10.9 Gout, unspecified (principal)

== ENCOUNTER → 2017-03-30 | Outpatient (REF) ==
[2017-03-30 09:59] LABS: ALBUMIN 2.7 GM/DL (3.2-5.2); ALBUMIN/GLOBULIN RATIO 0.75 (1.00-1.93); ALKALINE PHOSPHATASE 133 U/L (45-117); ALT/SGPT 23 U/L (12-78); ANION GAP 14 MEQ/L (8-16); AST/SGOT 17 U/L (7-37); BILIRUBIN,TOTAL 0.4 MG/DL (0.2-1.0); BLOOD UREA NITROGEN 11 MG/DL (7-18); CALCIUM LEVEL 9.9 MG/DL (8.8-10.2); CARBON DIOXIDE LEVEL 17 MEQ/L (21-32); CHLORIDE LEVEL 110 MEQ/L (98-107); CREATININE FOR GFR 0.55 MG/DL (0.55-1.30); GLOMERULAR FILTRATION RATE > 60.0 (>32); GLUCOSE, FASTING 146 MG/DL (70-100); POTASSIUM SERUM 4.4 MEQ/L (3.5-5.1); SODIUM LEVEL 141 MEQ/L (136-145); TOTAL PROTEIN 6.3 GM/DL (6.4-8.2)
== END ==
LOC: SKLAB2 08:00
DX: E78.2 Mixed hyperlipidemia (principal)

== ENCOUNTER → 2017-04-01 | Outpatient (CLI) | payer MEDICARE, OTHER | LOC: M RAD 14:10 | DX: M79.89 Other specified soft tissue disorders (principal) | CPT/HCPCS: 93971 ==

== ENCOUNTER → 2017-04-02 | Outpatient (REF) ==
[2017-04-02 09:19] LABS: HEMATOCRIT 37.5 % (36.0-47.0); HEMOGLOBIN 12.3 g/dl (12.0-16.0); MEAN CORPUSCULAR HEMOGLOBIN 30.6 pg (27.0-33.0); MEAN CORPUSCULAR HGB CONC 32.8 g/dl (32.0-36.5); MEAN CORPUSCULAR VOLUME 93.3 fl (80.0-96.0); PLATELET COUNT, AUTOMATED 444 10^3/uL (150-450); RED BLOOD COUNT 4.02 10^6/uL (4.00-5.40); RED CELL DISTRIBUTION WIDTH 15.9 % (11.5-14.5); WHITE BLOOD COUNT 12.2 10^3/uL (4.0-10.0)
[2017-04-02 09:50] LABS: ERYTHROCYTE SEDIMENTATION RATE 77 mm/hr (0-30)
== END ==
LOC: SKLAB2 06:56
DX: R22.31 Localized swelling, mass and lump, right upper limb (principal)

== ENCOUNTER → 2017-04-27 | Outpatient (REF) | payer MEDICARE, OTHER ==
[2017-04-27 09:00] LABS: ALBUMIN 3.1 GM/DL (3.2-5.2); ALBUMIN/GLOBULIN RATIO 0.82 (1.00-1.93); ALKALINE PHOSPHATASE 137 U/L (45-117); ALT/SGPT 18 U/L (12-78); ANION GAP 11 MEQ/L (8-16); AST/SGOT 27 U/L (7-37); BILIRUBIN,TOTAL 0.6 MG/DL (0.2-1.0); BLOOD UREA NITROGEN 20 MG/DL (7-18); CALCIUM LEVEL 10.8 MG/DL (8.8-10.2); CARBON DIOXIDE LEVEL 22 MEQ/L (21-32); CHLORIDE LEVEL 115 MEQ/L (98-107); GLOMERULAR FILTRATION RATE > 60.0 (>32); GLUCOSE, FASTING 221 MG/DL (70-100); POTASSIUM SERUM 4.5 MEQ/L (3.5-5.1); SODIUM LEVEL 148 MEQ/L (136-145); TOTAL PROTEIN 6.9 GM/DL (6.4-8.2)
== END ==
LOC: SKLAB2 07:30
DX: E78.5 Hyperlipidemia, unspecified (principal)
CPT/HCPCS: 80053

== ENCOUNTER → 2017-05-05 | Outpatient (REF) | payer MEDICARE, OTHER ==
[2017-05-05 08:47] LABS: ANION GAP 28 MEQ/L (8-16); BLOOD UREA NITROGEN 64 MG/DL (7-18); CALCIUM LEVEL 11.7 MG/DL (8.8-10.2); CARBON DIOXIDE LEVEL 11 MEQ/L (21-32); CHLORIDE LEVEL 126 MEQ/L (98-107); CREATININE FOR GFR 3.84 MG/DL (0.55-1.30); SODIUM LEVEL 165 MEQ/L (136-145)
[2017-05-05 08:56] LABS: GLUCOSE, FASTING 758 MG/DL (70-100); POTASSIUM SERUM 5.8 MEQ/L (3.5-5.1)
== END ==
LOC: SKLAB2 08:55
DX: R62.7 Adult failure to thrive (principal)